=== PATIENT | male | born 1955 | race Caucasian/White ===

== ENCOUNTER 2020-02-18 10:55 | Outpatient (CLI) | payer BC, SELFPAY | END 2020-02-18 10:56 | disposition home or self-care (01) | PROVIDERS: PCP Internal Medicine; Visit Provider Urology | DX: R97.20 Elevated prostate specific antigen [PSA] (principal) | CPT/HCPCS: 36415; 84153 ==

== ENCOUNTER 2020-05-24 15:06 | Emergency (ER) | payer BC, SELFPAY ==
[2020-05-24] VITALS (10 sets, daily range): BP systolic 121–167; BP diastolic 63–97; PULSE 82–91; RESP 14–18; TEMP 37.1; O2SAT 93–98; BMI 46.7
--- NOTE | 2020-05-24 16:59 | XRR_ITS ---
PROCEDURE INFORMATION: Exam: XR Chest Exam date and time: 05/24/2020 5:02 PM Age: 64 years old Clinical indication: Shortness of breath; Prior surgery; Surgery type: Stents; Patient HX: SOB, chest discomfort; Additional info: New a fib TECHNIQUE: Imaging protocol: XR of the chest Views: 1 view. COMPARISON: No relevant prior studies available. FINDINGS: Lungs: Unremarkable. No consolidation. Surgical clips overlie the right hemithorax superiorly and medially. Pleural spaces: Unremarkable. No pleural effusion. No pneumothorax. Skin fold overlies the lower left chest. Heart/Mediastinum: Unremarkable. No cardiomegaly. Bones/joints: Unremarkable. XR/XR chest 1V portable [id number] IMPRESSION: No acute findings.
--- NOTE | 2020-05-24 17:01 | ECG_ITS ---
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 Measurements Intervals [place] Rate: 81 P: OR: QRS: -57 QRSD: 124 T: 31 QT: 377 QTc: 440 Interpretive Statements ATRIAL FIBRILLATION POSSIBLE RIGHT VENTRICULAR CONDUCTION DELAY [RSR (QR) IN V1/V2] LEFT ANTERIOR FASCICULAR BLOCK [QRS AXIS <= -45, QR IN I, RS IN II] POSSIBLE LEFT VENTRICULAR HYPERTROPHY [VOLTAGE CRITERIA PLUS LAE OR QRS WIDENING] No previous ECG available for comparison Electronically Signed On 05-24-2020 18:50:07 BAG SORTER by Lorenzo Ovalles M.D. [id number]
--- NOTE | 2020-05-24 18:47 | ED_ITS ---
HPI - SOB/Dyspnea General: Chief Complaint: Shortness of Breath/Dyspnea Stated Complaint: SOB Time Seen by Provider: 05/24/20 17:07 History of Present Illness: HPI Narrative: The patient is a 64-year-old male with past medical history hypertension who comes to the ER complaining of increasing shortness of breath with exertion for the past 2 weeks. It is intermittent and comes and goes and when he rests it goes away. Denies chest pain. EKG on arrival shows atrial fibrillation. On my exam he denies dyspnea and is in sinus rhythm. The EKG on arrival does show a. fib though. Repeat ekg shows NSR. MD elicited complaint: shortness of breath Onset (ago): week(s) (2) Timing: intermittent and now resolved Severity: mild Exacerbating factors: exertion Relieving factors: rest Associated symptoms: Reports no associated symptoms; Deny abdominal pain, chest pain, dizziness, extremity pain, orthopnea, palpitations or polyuria Treatment prior to arrival: none Review of Systems General: Reports: 10 or more systems reviewed and unremarkable except in HPI and below Const: Denies: fatigue Eyes: Denies: change in vision, blurry vision or eye redness ENMT: Denies: throat pain, swelling of lips/tongue, ear or mastoid pain or nasal congestion Card: Denies: chest pain, palpitations, irregular heart rhythm, edema, dyspnea on exertion or orthopnea Resp: Reports: dyspnea; Denies: productive cough or non-productive cough GI: Denies: abdominal pain, diarrhea or GI cramping : Denies: flank pain, urinary frequency or urinary urgency Musc: Denies: neck pain, back pain, extremity pain, joint pain, joint redness, limited range of motion or muscle weakness Skin/Breast: Denies: rash, pruritus, erythema, skin pain or skin tenderness Neuro: Denies: headache(s), numbness in extremities, weakness in extremities, sensory changes, difficulty walking, dizziness, confusion or Slurred speech present Psych: Denies: anxiety or depression Endo: Denies: polyuria All/Imm: Denies: urticaria, throat swelling or tongue swelling PFSH ED PFSH: Medical History BPH (benign prostatic hyperplasia) Gout H/O non-Hodgkin's lymphoma Hyperlipidemia Hypertension Surgical History H/O adenoidectomy H/O colonoscopy 2007 H/O detached retina repair H/O heart artery stent H/O lymph node biopsy History of appendectomy History of tonsillectomy Family History Father Cancer lung Mother Cancer skin cancer Other Stroke Denies family history of Diabetes CAD (coronary artery disease) Anesthesia complication Bleeding disorder Social History Smoking and tobacco status: never smoked Alcohol intake: never Household members: spouse Marital status: Current occupational status: employed History of recent travel: No Physical Exam Const: COMMON NORMALS: no acute distress, average body habitus, patient oriented x3, no limitations, healthy appearing, alert and well nourished GENERAL APPEARANCE: cooperative, comfortable, well kempt and well developed ORIENTATION/CONSCIOUSNESS: Yes awake, Yes oriented to person, Yes oriented to place and Yes oriented to time HENMT: COMMON NORMALS: normocephalic, external ears normal and Normal external nose present HEAD & SCALP: normal to inspection and normocephalic NOSE: Normal external nose present EXTERNAL EAR: Yes external ears normal MOUTH: Normal oral and palatal mucosa present THROAT: posterior oropharynx normal Eye: COMMON NORMALS: Equal, round and reactive pupils present and EOMs intact bilaterally GENERAL EYE: appearance normal, both eyes and all related structures PUPIL: Yes Equal, round and reactive pupils present Neck/C-Spine: COMMON NORMALS: full ROM, no lymphadenopathy, no meningeal signs and no JVD GENERAL: Yes normal visual inspection Lymph: LYMPHATIC: no lymphadenopathy noted Chest: COMMONS NORMALS: normal inspection of the chest and normal palpation of entire chest wall Resp: COMMON NORMALS: normal respiratory effort, No retractions, No use of accessory muscles, clear to auscultation bilaterally and percussion normal EFFORT & INSPECTION: Yes able to speak in complete sentences AUSCULTATION: clear to auscultation bilaterally PERCUSSION: percussion normal Cardio: COMMON NORMALS: no JVD, regular rate, regular rhythm, S1 normal heart sound present, S2 normal heart sound present and Peripheral pulses 2+ throughout RATE: regular rate RHYTHM: regular rhythm HEART SOUNDS: S1 normal heart sound present and S2 normal heart sound present PERIPHERAL PULSES: Peripheral pulses 2+ throughout GI: COMMON NORMALS: Normal to inspection, nondistended, normoactive bowel sounds present, Soft to palpation, non-tender and no masses INSPECTION: Yes normal to inspection PALPATION: Yes Soft to palpation : COMMON NORMALS: Yes no CVA tenderness BLADDER/KIDNEY EXAM: Yes no CVA tenderness Back/Pelvis: COMMON NORMALS: no CVA tenderness, thoracic and lumbar spine normal to inspection, no thoracic nor lumbar tenderness and thoraco-lumbar ROM normal Extremity: COMMON NORMALS: normal to inspection, full ROM, capillary refill normal, no joint enlargement and no pedal edema GENERAL: Yes normal exam except as noted Neuro: COMMON NORMALS: patient oriented x3, CN's II-XII intact bilaterally, moves all extremities, no focal motor deficits, no sensory deficits noted and gait normal SENSORIUM/ORIENTATION: Yes alert, Yes oriented to person, Yes oriented to place and Yes oriented to time MENINGEAL SIGNS: Yes no meningeal signs Psych: COMMON NORMALS: mental status grossly normal, Normal thought process present, cooperative, normal affect and speech normal APPEARANCE: Yes well kempt ATTITUDE: Yes calm SPEECH: Yes normal speech THOUGHT PROCESS: Normal thought process present Skin: COMMON NORMALS: no rashes or lesions noted GENERAL SKIN EXAM: no rashes or lesions noted Course Vital Signs: Vital signs: Vital Signs Temperature 98.8 F 05/24/20 15:17 Pulse Rate 82 05/24/20 22:00 Respiratory Rate 18 05/24/20 22:00 Blood Pressure 128/75 05/24/20 22:00 Pulse Oximetry 95 05/24/20 22:00 MDM - SOB/Dyspnea MDM Narrative: Medical decision making narrative: The patient likely has an episode of paroxysmal atrial fibrillation. A. júnior was seen on the EKG on arrival however in the exam room he is in normal sinus rhythm. Discussed the risks, benefits and alternatives of blood thinners and he chose to accept the risks and start Eliquis in the ER. Discussed with Dr. Jackson who will follow this patient in the clinic. I also refilled his metoprolol which she has been out of for a week. This is likely why he started popping into A. fib anyways. Return to the ER with worsening symptoms otherwise follow-up in the clinic. I placed a case management referral to help with the cardiology follow-up appointment. Lab Data: Labs: Lab Results 03/04/1505/24/20 05/24/20 Range/Units 18:15 18:37 18:37 WBC 8.5 (4.0-10.0) 10^3/ uL RBC 5.40 H (4.1-5.3) 10^6/u L Hgb 16.8 H (11.7-16.6) g/dL Hct 50.5 (42.0-52.0) % MCV 93.5 (80-94) fL MCH 31.1 (28.0-34.0) pg MCHC 33.3 (30.0-36.0) g/dL RDW 14.3 (12.1-15.1) % Plt Count 193 (130-400) 10^3/c mm MPV 11.0 H (7.4-10.4) fL Neut % (Auto) 62.9 % Lymph % (Auto) 22.9 % Richardson % (Auto) 8.0 % Eos % (Auto) 4.9 % Baso % (Auto) 0.7 % Neut # (Auto) 5.34 (1.8-7.7) 10^3/u L Lymph # (Auto) 1.9 (0.8-4.8) 10^3/u L Richardson # (Auto) 0.7 (0.2-0.9) 10^3/u L Eos # (Auto) 0.4 (0.0-0.8) 10^3/u L Baso # (Auto) 0.1 (0.0-0.1) 10^3/u L Nucleated RBC % (a uto) 0 % Nucleated RBCs # 0.0 /100WBC D-Dimer 0.39 (0-0.59) ug/mIFE U Sodium (136-145) mmol/L Potassium (3.5-5.1) mmol/L Chloride (98-107) mmol/L Carbon Dioxide (22-29) mmol/L Anion Gap (5-19) BUN (8-23) mg/dL Creatinine (0.7-1.2) mg/dL GFR Calculation (90-130) mL/min Glucose (65-115) mg/dL Calculated Osmolal ity (285-295) mOsm/k g Calcium (8.5-10.5) mg/dL Total Bilirubin (0.15-1.2) mg/dL AST (0-40) U/L ALT (0-41) U/L Alkaline Phosphata se (40-130) IU/L Troponin T Baselin e (0-15) ng/L Troponin T 120 Min maria e (0-15) ng/L Delta Troponin T (0-10) ABS# NT-Pro-B Natriuret Pep (0-125) pg/mL Total Protein (6.6-8.7) g/dL Albumin (3.5-5.2) g/dL Globulin (1.3-4.6) g/dL Urine Color Yellow (Yellow) Urine Appearance Clear (CLEAR) Urine pH 5 (5-7) Ur Specific Gravit y 1.015 (1.005-1.030) Urine Protein Neg (Negative) Urine Glucose (UA) Norm (Normal) Urine Ketones Negative (Negative) Urine Blood 2+ H (Negative) Urine Nitrate Negative (Negative) Urine Bilirubin Neg (Negative) Urine Urobilinogen 1 H (Negative) mg/dL Ur Leukocyte Silvia ase Negative (Negative) Urine RBC 5-10 H (0-2) /hpf Urine WBC None (0-5) /hpf Ur Squamous Epith Cells 5-10 H (0-5) /hpf Amorphous Sediment Not Reportable Urine Bacteria Trace (NONE) /hpf 05/24/20 05/24/20 05/24/20 Range/Units 18:37 18:37 20:51 WBC (4.0-10.0) 10^3/ uL RBC (4.1-5.3) 10^6/u L Hgb (11.7-16.6) g/dL Hct (42.0-52.0) % MCV (80-94) fL MCH (28.0-34.0) pg MCHC (30.0-36.0) g/dL RDW (12.1-15.1) % Plt Count (130-400) 10^3/c mm MPV (7.4-10.4) fL Neut % (Auto) % Lymph % (Auto) % Richardson % (Auto) % Eos % (Auto) % Baso % (Auto) % Neut # (Auto) (1.8-7.7) 10^3/u L Lymph # (Auto) (0.8-4.8) 10^3/u L Richardson # (Auto) (0.2-0.9) 10^3/u L Eos # (Auto) (0.0-0.8) 10^3/u L Baso # (Auto) (0.0-0.1) 10^3/u L Nucleated RBC % (a uto) % Nucleated RBCs # /100WBC D-Dimer (0-0.59) ug/mIFE U Sodium 140 (136-145) mmol/L Potassium 4.3 (3.5-5.1) mmol/L Chloride 102 (98-107) mmol/L Carbon Dioxide 24 (22-29) mmol/L Anion Gap 18.3 (5-19) BUN 22 (8-23) mg/dL Creatinine 1.3 H (0.7-1.2) mg/dL GFR Calculation 55.9 L (90-130) mL/min Glucose 110 (65-115) mg/dL Calculated Osmolal ity 294 (285-295) mOsm/k g Calcium 9.2 (8.5-10.5) mg/dL Total Bilirubin 0.5 (0.15-1.2) mg/dL AST 18 (0-40) U/L ALT 11 (0-41) U/L Alkaline Phosphata se 50 (40-130) IU/L Troponin T Baselin e 47 H (0-15) ng/L Troponin T 120 Min maria e 45.44 H (0-15) ng/L Delta Troponin T -1.56 L (0-10) ABS# NT-Pro-B Natriuret Pep 175 H (0-125) pg/mL Total Protein 6.4 L (6.6-8.7) g/dL Albumin 4.3 (3.5-5.2) g/dL Globulin 2.1 (1.3-4.6) g/dL Urine Color (Yellow) Urine Appearance (CLEAR) Urine pH (5-7) Ur Specific Gravit y (1.005-1.030) Urine Protein (Negative) Urine Glucose (UA) (Normal) Urine Ketones (Negative) Urine Blood (Negative) Urine Nitrate (Negative) Urine Bilirubin (Negative) Urine Urobilinogen (Negative) mg/dL Ur Leukocyte Silvia ase (Negative) Urine RBC (0-2) /hpf Urine WBC (0-5) /hpf Ur Squamous Epith Cells (0-5) /hpf Amorphous Sediment Urine Bacteria (NONE) /hpf Discharge Plan Discharge Patient Disposition: Home Clinical Impression: Atrial fibrillation Condition: Stable Prescriptions: New Eliquis 5 mg tablet 5 mg PO BID Qty: 20 RF: 0 metoprolol tartrate 50 mg tablet 50 mg PO Q12H Qty: 20 RF: 0 No Action allopurinol 100 mg tablet 100 mg PO DAILY RF: 0 diphenhydramine HCl [Benadryl] 25 mg capsule 25 mg PO QID PRNRF: 0 metoprolol tartrate 100 mg tablet 100 mg PO DAILY RF: 0 cilostazol 50 mg tablet 50 mg PO ONCE RF: 0 tamsulosin 0.4 mg capsule 0.4 mg PO DAILY RF: 0 fenofibrate nanocrystallized 145 mg tablet 145 mg PO DAILY RF: 0 atorvastatin 80 mg tablet 80 mg PO DAILY RF: 0 allopurinol 100 mg tablet 100 mg PO DAILY RF: 0 oxybutynin chloride 5 mg tablet extended release 24hr 5 mg PO DAILY RF: 0 levocetirizine [Xyzal] 5 mg tablet 5 mg PO DAILY RF: 0 multivitamin Tablet 1 tab PO DAILY RF: 0 Discharge Orders: Discharge ED (Routine); Ordered 05/24/20 Ordered By: Flo You Referrals: Lori Alonzo DO [Primary Care Provider] - Discharge Diet: Advance as tolerated Discharge Activity: Resume usual activity Patient Instructions: Atrial Fibrillation (ED), Opioid Safety Activity Restrictions/Additional Instructions: You have had an episode of paroxysmal atrial fibrillation. This is where your heart beats irregularly and it comes and goes. Please avoid activities likely to make you pop back into atrial fibrillation so it avoid excessive exertion. Please follow-up with Dr. Jackson in a few days. I have placed a case management referral to help you get a follow-up appointment with him. Return to the ER with worsening symptoms. Also please start taking your Eliquis and be careful not to injure yourself as it may cause excessive bleeding. I have also refilled your metoprolol. Coding Level of Care Code ED Valver for Deidra Fwd Exam Comprehensive
[2020-05-24 18:49] LABS: Basophils # 0.1 10^3/uL (0.0-0.1); Basophils % 0.7 %; Eosinophils # 0.4 10^3/uL (0.0-0.8); Eosinophils % 4.9 %; Hematocrit 50.5 % (42.0-52.0); Hemoglobin 16.8 g/dL (11.7-16.6); Lymphocytes # 1.9 10^3/uL (0.8-4.8); Lymphocytes % 22.9 %; Mean Corpuscular HGB Conc 33.3 g/dL (30.0-36.0); Mean Corpuscular Hemoglobin 31.1 pg (28.0-34.0); Mean Corpuscular Volume 93.5 fL (80-94); Monocytes # 0.7 10^3/uL (0.2-0.9); Neutrophils # 5.34 10^3/uL (1.8-7.7); Neutrophils % 62.9 %; Nucleated Red Blood Cells % 0 %; Platelet Count 193 10^3/cmm (130-400); Red Cell Distribution Width 14.3 % (12.1-15.1); White Blood Count 8.5 10^3/uL (4.0-10.0)
--- NOTE | 2020-05-24 19:01 | ECG_ITS ---
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 Measurements Intervals [place] Rate: 80 P: 57 [place]: 270 QRS: -53 QRSD: 124 T: 7 QT: 410 QTc: 473 Interpretive Statements SINUS RHYTHM WITH FIRST DEGREE AV BLOCK POSSIBLE RIGHT VENTRICULAR CONDUCTION DELAY [RSR (QR) IN V1/V2] MODERATE VOLTAGE CRITERIA FOR LVH, CONSIDER NORMAL VARIANT [MEETS CRITERIA IN ONE OF: R(aVL), S(V1), R(V5), R(V5/V6)+S(V1)] INFERIOR MYOCARDIAL INFARCTION , PROBABLY OLD [40+ ms Q WAVE AND/OR ST/T ABNORMALITY IN II/aVF] Compared to ECG 05/24/2020 15:24:36 First degree AV block now present Atrial fibrillation no longer present Left anterior fascicular block no longer present Myocardial infarct finding still present Electronically Signed On 05-24-2020 18:57:54 ADDICTION THERAPIST by Lorenzo Ovalles M.D. [email or web address] at [email or web address] Tech Youth [email or web address]/store/[id number]
[2020-05-24 19:03] LABS: D Dimer 0.39 ug/mIFEU (0-0.59)
[2020-05-24 19:17] LABS: Alanine Aminotransferase 11 U/L (0-41); Albumin Level 4.3 g/dL (3.5-5.2); Alkaline Phosphatase 50 IU/L (40-130); Aspartate Amino Transferase 18 U/L (0-40); Blood Urea Nitrogen 22 mg/dL (8-23); Calcium 9.2 mg/dL (8.5-10.5); Carbon Dioxide 24 mmol/L (22-29); Chloride 102 mmol/L (98-107); Globulin 2.1 g/dL (1.3-4.6); Glomerular Filtration Rate 55.9 mL/min (90-130); Glucose 110 mg/dL (65-115); NT Pro B Type Natriuretic Pept 175 pg/mL (0-125); Osmolality Calculated 294 mOsm/kg (285-295); Sodium 140 mmol/L (136-145); Total Bilirubin 0.5 mg/dL (0.15-1.2); Total Protein 6.4 g/dL (6.6-8.7)
[2020-05-24 19:18] LABS: Troponin(5th) Baseline 47 ng/L (0-15)
[2020-05-24 19:37] LABS: Anion Gap 18.3 (5-19); Potassium 4.3 mmol/L (3.5-5.1)
[2020-05-24 20:10] LABS: Add Urine Microscopic? YES; Bilirubin Urine Neg (Negative); Blood Urine 2+ (Negative); Glucose Urine UA Norm (Normal); Ketones Urine Negative (Negative); Leukocyte Esterase Urine Negative (Negative); Nitrate Urine Negative (Negative); Protein Urine Neg (Negative); Specific Gravity, Urine 1.015 (1.005-1.030); Urine Appearance Clear (CLEAR); Urine Color Yellow (Yellow); Urobilinogen Urine 1 mg/dL (Negative); pH Urine 5 (5-7)
[2020-05-24 20:15] LABS: Add Urine Culture? No; Bacteria Urine TRACE /hpf
[2020-05-24] MEDS: metoprolol tartrate 50 mg Tablet PO ×2 (21:42→22:29)
[2020-05-24] MEDS: apixaban 5 mg Tablet PO (21:42)
[2020-05-24 22:13] LABS: Troponin 5 2HR 45.44 ng/L (0-15); Troponin 5 2HR Delta -1.56 ABS# (0-10)
--- NOTE | 2020-05-24 23:01 | ECG_ITS ---
[facility] Test Date: 2020-05-24 Pat Name: Juan Antonio Mcpherson Department: Room: Gender: Male Kerrick Kleaner Operator: : 1955 Requested By: Flo You Order Number: [id number] Kaley MD: MOISE JASSO Measurements Intervals [place] Rate: 83 P: 42 [place]: 257 QRS: -54 QRSD: 129 T: 38 QT: 418 QTc: 491 Interpretive Statements SINUS RHYTHM WITH FIRST DEGREE AV BLOCK POSSIBLE LEFT ATRIAL ENLARGEMENT [-0.1mV P WAVE IN V1/V2] POSSIBLE RIGHT VENTRICULAR CONDUCTION DELAY [RSR (QR) IN V1/V2] LEFT ANTERIOR FASCICULAR BLOCK [QRS AXIS <= -45, QR IN I, RS IN II] POSSIBLE LEFT VENTRICULAR HYPERTROPHY [VOLTAGE CRITERIA PLUS LAE OR QRS WIDENING] POSSIBLE ANTERIOR MYOCARDIAL INFARCTION , OF INDETERMINATE AGE [30 ms Q WAVE IN V3/V4, OR R < 0.2 mV IN V4] Compared to ECG 05/24/2020 18:40:53 Left anterior fascicular block now present Myocardial infarct finding still present Electronically Signed On 05-25-2020 20:03:36 TREE CUTTER by MOISE JASSO [id number]
--- NOTE | 2020-05-25 10:10 | DCPLANNER ---
manager fitness had message to schedule a follow up appointment for patient with [facility]. manager fitness called [facility], spoke with Justyna, gave clinic patients information. A follow up appointment was scheduled for Tuesday, June 09, 2020 at 2:[address] Jackson. manager fitness called patient and gave patient the appointment information.
--- NOTE | 2020-06-16 08:12 | DCPLANNER ---
Patient had a follow up appointment scheduled for 06.09.[address] Jackson at [facility] - patient did attend appointment.
== END 2020-05-24 22:31 | disposition home or self-care (01) ==
PROVIDERS: Emergency Provider Family Medicine; PCP Internal Medicine
DX: I48.91 Unspecified atrial fibrillation (principal); E78.5 Hyperlipidemia, unspecified; I10 Essential (primary) hypertension; Z85.72 Personal history of non-Hodgkin lymphomas
CPT/HCPCS: 71045; 80053; 81001; 83880; 84484; 85025; 85378; 93005; 99284

== ENCOUNTER → 2020-07-02 11:55 | Outpatient (BNVA) | payer BC, SELFPAY | PROVIDERS: PCP Internal Medicine; Visit Provider Surgery | DX: Z20.822 Contact with and (suspected) exposure to COVID-19 (principal) | CPT/HCPCS: 87635 ==

== ENCOUNTER 2020-07-06 06:50 | Day surgery (SDC) | payer BC, SELFPAY ==
[2020-07-02 14:09] VITALS: BMI 46.2
[2020-07-06 07:04] VITALS: BP 142/69; PULSE 63; RESP 16; TEMP 36.3; O2SAT 99
--- NOTE | 2020-07-06 07:21 | ANES.PREANE2 ---
Pre-Anesthetic Assessment Pre-Anesthetic Assessment: Height/Weight: Height 1.88 m Weight 163.293 kg Temp Pulse Resp BP Pulse Ox 97.4 F L 63 16 142/69 99 07/06/20 07:04 07/06/20 07:04 07/06/20 07:04 07/06/20 07:04 07/06/20 07:04 Proposed Procedure: Operation Date: 07/06/20 08:00 Proposed Procedures p Colonoscopy 37140 Z12.11(Not Applicable) - Sina Borjas MD Was Beta Xenia taken within 24 hours: Yes Was Clonidine taken within 24 hours: N/A Last intake: Intake Last Liquid Date 07/05/20 Last Liquid Time 23:55 Last Solid Date 07/04/20 Social: Social History: No alcohol and No tobacco Exam: Pre-Anes Outpt Exam: alert and oriented x 3 Airway: Submandibular: WNL Cervical ROM: WNL MP: 2 Pulmonary: Pulmonary: Sleep apnea CV/HEM: CV/HEM: Afib and HTN : : None reported Hepatic: Hepatic: None reported GI: GI: None reported Metabolic: Metabolic: Hyperlipidemia and Morbid obesity Comments: Gout Musc/skel: Musc/skel: None reported Neuropsych: Neuropsych: None reported Anesthetic Plan: ASA status: 3 Anesthesia: MAC PFSH Anesthesia PFSH: Medical History (Updated 06/12/20 @ 19:50 by Sherice Jackson MD) Atrial fibrillation BPH (benign prostatic hyperplasia) Gout H/O non-Hodgkin's lymphoma Hyperlipemia Hyperlipidemia Hypertension Surgical History H/O adenoidectomy H/O colonoscopy 2007 H/O detached retina repair H/O heart artery stent H/O lymph node biopsy History of appendectomy History of tonsillectomy Family History Father Cancer lung Mother Cancer skin cancer Other Stroke Denies family history of Diabetes CAD (coronary artery disease) Anesthesia complication Bleeding disorder Social History Smoking and tobacco status: never smoked Alcohol intake: never Household members: spouse Marital status: Current occupational status: employed History of recent travel: No Data Anesthesia Cardiac Studies: No Data to Display
[2020-07-06] MEDS: sodium chloride 0.9% 1,000 ML 30 ML IV (07:22)
[2020-07-06 08:32] VITALS: BP 145/96; PULSE 63; RESP 18; TEMP 36.5; O2SAT 97
--- NOTE | 2020-07-06 08:34 | P.HP_ITS ---
Same Day Surgery H&P Indication for Procedure/HPI DATE OF PROCEDURE: July 06, 2020 CHIEF COMPLAINT/INDICATIONFOR SURGICAL PROCEDURE: screening PREOP DIAGNOSIS: screening colonoscopy PLANNED PROCEDRUE: Operation Date: 07/06/20 08:00 Proposed Procedures p Colonoscopy 40284 Z12.11(Not Applicable) - Sina Borjas MD Medications/Allergies* Home Medications Medication Instructions Recorded Confirmed Type allopurinol 100 mg tablet 100 mg PO DAILY 02/27/20 07/06/20 History diphenhydramine HCl 25 mg capsule 25 mg PO QID PRN 02/27/20 07/06/20 History levocetirizine 5 mg tablet 5 mg PO DAILY 02/27/20 07/06/20 History multivitamin 1 tab PO DAILY 02/27/20 07/06/20 History oxybutynin chloride 5 mg 5 mg PO DAILY 02/27/20 07/06/20 History tablet,extended release 24 hr tamsulosin 0.4 mg capsule 0.4 mg PO DAILY 02/27/20 07/06/20 History metoprolol tartrate 50 mg tablet 100 mg PO .QPM tab 06/09/20 07/06/20 History Allergies/Adverse Reactions Allergy/AdvReac Type Severity Reaction Status Date / Time No Known Allergies Allergy Verified 02/27/20 10:41 Current Medications: Generic Name Dose Route Start Last Admin Trade Name Freq PRN Reason Stop Dose Admin Sodium Chloride 1,000 mls @ 30 mls/hr 07/06/20 07:00 07/06/20 07:22 Sodium Chloride 0.9% IV 07/07/20 06:59 30 mls/hr .Q24H KWESI Administration Pertinent History/Comorbid Conditions* Medical History (Updated 07/06/20 @ 08:33 by Sina Borjas MD) Atrial fibrillation BPH (benign prostatic hyperplasia) Gout H/O non-Hodgkin's lymphoma Hyperlipemia Hyperlipidemia Hypertension Surgical History (Updated 07/06/20 @ 08:33 by Sina Borjas MD) H/O adenoidectomy H/O colonoscopy (07/06/20) poor prep, cecal polyp , repeat in 5 years H/O detached retina repair H/O heart artery stent H/O lymph node biopsy History of appendectomy History of tonsillectomy Family History (Updated 02/27/20 @ 10:51 by Lori Bergman LPN) Cancer Father lung Mother skin cancer Stroke Denies family history of Diabetes CAD (coronary artery disease) Anesthesia complication Bleeding disorder Social History Smoking and tobacco status: never smoked Alcohol intake: never Household members: spouse Marital status: Current occupational status: employed History of recent travel: No Pertinent Exam Findings alert, oriented x 3, regular rate & rhythm and operative site marked Recommendations Surgery/Procedure today Coding Level of Care Code Acute Administrative Assistant Coordinator for Deidra Hernandez
[2020-07-06 08:47] VITALS: BP 122/81; PULSE 62; RESP 16; TEMP 36.7; O2SAT 100
--- NOTE | 2020-07-06 09:04 | ANE.PACU2 ---
Inpatient post-anesthesia follow up: Airway intact: Yes Vital signs: Temperature 98.0 F Pulse Rate 62 Respiratory Rate 16 Blood Pressure 122/81 Pulse Oximetry 100 Oxygen Delivery Me thod Room Air Oxygen Flow Rate Fraction of Inspir ed Oxygen Hydration adequate: Yes Nausea and vomiting: No Mental status: Baseline
--- NOTE | 2020-07-06 13:44 | ANE.PACU2 ---
Inpatient post-anesthesia follow up: Airway intact: Yes Vital signs: Temperature 98.0 F Pulse Rate 62 Respiratory Rate 16 Blood Pressure 122/81 Pulse Oximetry 100 Oxygen Delivery Me thod Room Air Oxygen Flow Rate Fraction of Inspir ed Oxygen Hydration adequate: Yes Nausea and vomiting: No Pain level: 1 Mental status: Baseline
--- NOTE | 2020-07-07 11:47 | ANES.PREANE2 ---
Pre-Anesthetic Assessment Pre-Anesthetic Assessment: Height/Weight: Height 1.88 m Weight 163.293 kg Temp Pulse Resp BP Pulse Ox 98.0 F 62 16 122/81 100 07/06/20 08:47 07/06/20 08:47 07/06/20 08:47 07/06/20 08:47 07/06/20 08:47 Preop Diagnosis: screening colonoscopy Proposed Procedure: Operation Date: 07/06/20 08:00 Proposed Procedures p Colonoscopy 20448 Z12.11(Not Applicable) - Sina Borjas MD Was Beta Xenia taken within 24 hours: Yes Was Clonidine taken within 24 hours: N/A Last intake: Intake Last Liquid Date 07/05/20 Last Liquid Time 23:55 Last Solid Date 07/04/20 Social: Social History: No alcohol and No tobacco Exam: Pre-Anes Outpt Exam: alert, oriented x 3, clear to auscultation bilaterally and regular rate & rhythm Airway: Submandibular: Other (limited) Cervical ROM: Other (limited) MP: 3 Pulmonary: Pulmonary: Sleep apnea CV/HEM: CV/HEM: HTN : : None reported Hepatic: Hepatic: None reported GI: GI: None reported Metabolic: Metabolic: Hyperlipidemia Comments: Gout Musc/skel: Musc/skel: None reported Neuropsych: Neuropsych: None reported Anesthetic Plan: ASA status: 3 Anesthesia: MAC PFSH Anesthesia PFSH: Medical History (Updated 07/06/20 @ 08:33 by Sina Borjas MD) Atrial fibrillation BPH (benign prostatic hyperplasia) Gout H/O non-Hodgkin's lymphoma Hyperlipemia Hyperlipidemia Hypertension Surgical History (Updated 07/06/20 @ 08:33 by Sina Borjas MD) H/O adenoidectomy H/O colonoscopy (07/06/20) poor prep, cecal polyp , repeat in 5 years H/O detached retina repair H/O heart artery stent H/O lymph node biopsy History of appendectomy History of tonsillectomy Family History Father Cancer lung Mother Cancer skin cancer Other Stroke Denies family history of Diabetes CAD (coronary artery disease) Anesthesia complication Bleeding disorder Social History Smoking and tobacco status: never smoked Alcohol intake: never Household members: spouse Marital status: Current occupational status: employed History of recent travel: No Data Anesthesia Cardiac Studies: No Data to Display
== END 2020-07-06 09:20 | disposition home or self-care (01) ==
PROVIDERS: PCP Internal Medicine; Visit Provider Surgery
PROC: 0DJD8ZZ Inspection of Lower Intestinal Tract, Via Natural or Artificial Opening Endoscopic (ICD-10-PCS; CPT 45378; principal; 2020-07-06 08:00)
DX: Z12.11 Encounter for screening for malignant neoplasm of colon (principal); K57.30 Diverticulosis of large intestine without perforation or abscess without bleeding; K64.8 Other hemorrhoids; D12.0 Benign neoplasm of cecum; I48.91 Unspecified atrial fibrillation; N40.0 Benign prostatic hyperplasia without lower urinary tract symptoms; E78.5 Hyperlipidemia, unspecified; I10 Essential (primary) hypertension; Q27.30 Arteriovenous malformation, site unspecified; G47.30 Sleep apnea, unspecified
CPT/HCPCS: 45380; 88305; 96360; 96361; J2704; J7030

== ENCOUNTER 2020-08-10 10:36 | Outpatient (CLI) | payer BC, SELFPAY ==
--- NOTE | 2020-08-10 11:00 | USCV_ITS ---
Juan Antonio Mcpherson Age: 65 Gender: M : 1955 Exam Date: 08/10/2020 11:01 Ordering Phys: Baylee Wolf MD ([email or web address]) Technologist: Lesa José Exam Location: [facility] [place] Indication: CHEST PAIN BP: 120 / 80 HR: 60 Rhythm: Sinus Technical Quality: Very technically difficult study MEASUREMENTS (Male / Female) Normal Values 2D ECHO LV Diastolic Diameter PLAX 4.8 cm 4.2 - 5.9 / 3.9 - 5.3 cm LV Systolic Diameter PLAX 2.9 cm LV Chamber Size 3.8 cm IVS Diastolic Thickness 1.1 cm 0.6 - 1.0 / 0.6 - 0.9 cm IVS Systolic Thickness 1.7 cm LVPW Diastolic Thickness 1.3 cm 0.6 - 1.0 / 0.6 - 0.9 cm LVPW Systolic Thickness 1.5 cm RV Chamber Size 2.8 cm LVOT Diameter 2.0 cm LV Ejection Fraction 2D Teich 69.8 % LA Diameter 4.8 cm LA Width 4.8 cm LA Height 4.7 cm RA Width 2.9 cm RA Height 4.7 cm Aorta at Sinotubular Diameter 3.5 cm M-MODE LV Diastolic Diameter MM 5.3 cm 4.2 - 5.9 / 3.9 - 5.3 cm LV Systolic Diameter MM 3.5 cm LV Ejection Fraction MM Teich 62.7 % IVS Diastolic Thickness MM 1.0 cm 0.6 - 1.0 / 0.6 - 0.9 cm IVS Systolic Thickness MM 1.4 cm LVPW Diastolic Thickness MM 0.9 cm 0.6 - 1.0 / 0.6 - 0.9 cm LVPW Systolic Thickness MM 1.6 cm RV Diastolic Diameter MM 1.5 cm Aortic Annulus Diameter 4.0 cm LA Ao Ratio MM 1.4 MV E Point Septal Separation 0.3 cm DOPPLER AV Peak Velocity 108.0 cm/s LVOT Peak Velocity 61.0 cm/s AV Area Cont Eq vti 2.0 cm squared AV Area Cont Eq pk 1.8 cm squared MV Area PHT 4.0 cm squared Mitral E to A Ratio 1.7 MV E' Velocity 50.0 cm/s Mitral E to MV E' Ratio 7.6 Mitral E to LV E' Lateral Ratio 7.1 Mitral E to LV E' Septal Ratio 8.2 TR Peak Velocity 240.9 cm/s TR Peak Gradient 23.2 mmHg TR Mean Velocity 224.7 cm/s TR Mean Gradient 20.7 mmHg TR Velocity Time Integral 37.6 cm TV Peak E Velocity 84.0 cm/s Right Atrial Pressure 3.0 mmHg Pulmonary Artery Systolic Pressu 26.2 mmHg PV Peak Velocity 69.3 cm/s RV Acceleration Time 0.2 s RV Ejection Time 0.4 s RV AcT/ET 0.5 FINDINGS Left Ventricle Normal LV size ejection fraction. No gross wall motion normalities. Right Ventricle Possibly normal size and ejection fraction Right Atrium Mildly increased right atrial size. Left Atrium Mildly increased left atrial size. Mitral Valve Thickened mitral valve. Mild mitral valve regurgitation. Mild mitral annular calcification. Aortic Valve Thickened aortic valve. [id number] aortic valve regurgitation. Tricuspid Valve Could not be visualized well Pulmonic Valve Pulmonic valve not well visualized. Pericardium Normal pericardium without effusion. Aorta Normal ascending aorta dimension. CONCLUSIONS Normal LV size ejection fraction of 62% No gross wall motion normalities. Segmental wall motion analysis is difficult because of the poor ultrasonic window Mild biatrial enlargement. Thickened aortic valve. [id number] aortic valve regurgitation. Thickened mitral valve. Mild mitral valve regurgitation. Mild mitral annular calcification. There is no pericardial effusion. There are no intracardiac masses. Technically difficult study because of the poor ultrasonic window. No previous study is available for comparison. Dr Baylee Wolf MD [facility] (Electronically Signed) Final Date: 10 Aug 2020 16:29 S
[2020-08-10 11:51] LABS: Basophils # 0.1 10^3/uL (0.0-0.1); Basophils % 0.6 %; Eosinophils # 0.4 10^3/uL (0.0-0.8); Eosinophils % 4.8 %; Hematocrit 45.5 % (42.0-52.0); Hemoglobin 15.1 g/dL (11.7-16.6); Lymphocytes # 1.9 10^3/uL (0.8-4.8); Lymphocytes % 24.6 %; Mean Corpuscular HGB Conc 33.2 g/dL (30.0-36.0); Mean Corpuscular Hemoglobin 30.8 pg (28.0-34.0); Mean Corpuscular Volume 92.7 fL (80-94); Mean Platelet Volume 11.2 fL (7.4-10.4); Monocytes # 0.5 10^3/uL (0.2-0.9); Monocytes % 6.8 %; Neutrophils # 4.88 10^3/uL (1.8-7.7); Neutrophils % 62.9 %; Nucleated Red Blood Cells % 0 %; Platelet Count 155 10^3/cmm (130-400); Red Blood Count 4.91 10^6/uL (4.1-5.3); Red Cell Distribution Width 13.5 % (12.1-15.1); White Blood Count 7.8 10^3/uL (4.0-10.0)
[2020-08-10 12:10] LABS: Anion Gap 14.3 (5-19); Blood Urea Nitrogen 18 mg/dL (8-23); Calcium 8.4 mg/dL (8.5-10.5); Carbon Dioxide 25 mmol/L (22-29); Chloride 108 mmol/L (98-107); Glomerular Filtration Rate 67.6 mL/min (90-130); Glucose 105 mg/dL (65-115); Osmolality Calculated 298 mOsm/kg (285-295); Potassium 4.3 mmol/L (3.5-5.1); Sodium 143 mmol/L (136-145)
== END 2020-08-10 10:37 | disposition home or self-care (01) ==
PROVIDERS: PCP Internal Medicine; Visit Provider Internal Medicine Cardiovascular Disease
DX: I48.0 Paroxysmal atrial fibrillation (principal); Z01.812 Encounter for preprocedural laboratory examination; R55 Syncope and collapse; E78.49 Other hyperlipidemia; I10 Essential (primary) hypertension; Z20.822 Contact with and (suspected) exposure to COVID-19; I08.0 Rheumatic disorders of both mitral and aortic valves
CPT/HCPCS: 36415; 80048; 85025; 85610; 86850; 86900; 87635; 93306

== ENCOUNTER 2020-08-16 09:37 | Day surgery (SDC) | payer BC, SELFPAY ==
[2020-08-13 12:26] VITALS: BMI 46.2
[2020-08-16] VITALS (18 sets, daily range): BP systolic 119–164; BP diastolic 71–98; PULSE 56–96; RESP 16–18; TEMP 36.1–37.3; O2SAT 60–100
--- NOTE | 2020-08-16 | SC_ITS ---
WS: [id number] C-ARM RADIOGRAPHS CHEST; 2 IMAGES HISTORY: Defibrillator insertion. COMPARISON: None available. Intraoperative imaging during defibrillator insertion to the LEFT subclavian. SC/C-arm FL for Pacemaker IMPRESSION: Intraoperative imaging during defibrillator insertion.
--- NOTE | 2020-08-16 | SCC_ITS ---
Procedure Done: Dual-chamber pacemaker implantation 122.9 seconds of fluoroscopic guidance, for a cumulative dose of 42.19 mGy, was provided to Dr. Thurman by the radiology department. C-arm images of the chest were saved for the patient's permanent record. [facility]
--- NOTE | 2020-08-16 07:45 | SC_ITS ---
WS: [id number] C-ARM RADIOGRAPHS CHEST; 2 IMAGES HISTORY: Defibrillator insertion. COMPARISON: None available. Intraoperative imaging during defibrillator insertion to the LEFT subclavian.
--- NOTE | 2020-08-16 10:03 | P.HPUD_ITS ---
Surgery/Procedure H&P Update DATE OF PROCEDURE: August 16, 2020 DATE H&P PERFORMED: 08/04/20 H&P UPDATE INFORMATION: I have reviewed H&P completed within last 30 days, I have examined patient prior to procedure and No changes to prior documentation PREOP DIAGNOSIS: Third-degree heart block PRIMARY INDICATION FOR PROCEDURE: Paroxysmal atrial fibrillation with third- degree heart block and prolonged sinus pauses PLANNED PROCEDURE: Operation Date: 08/16/20 11:00 Proposed Procedures p Pacemaker Insertion(Not Applicable) - Kashmir Thurman MD
[2020-08-16] MEDS: sodium chloride 0.9% 1,000 ML 30 ML IV (10:25)
--- NOTE | 2020-08-16 10:29 | ANES.PREANE2 ---
Pre-Anesthetic Assessment Pre-Anesthetic Assessment: Height/Weight: Height 1.88 m Weight 163.293 kg Temp Pulse Resp BP Pulse Ox 97.4 F L 56 L 18 142/83 99 08/16/20 09:53 08/16/20 09:53 08/16/20 09:53 08/16/20 09:53 08/16/20 09:53 Preop Diagnosis: Third-degree heart block Proposed Procedure: Operation Date: 08/16/20 11:00 Proposed Procedures p Pacemaker Insertion(Not Applicable) - Kashmir Thurman MD Familial anesthetic complications: None Was Beta Xenia taken within 24 hours: N/A Was Clonidine taken within 24 hours: N/A Last intake: Intake Last Liquid Date 08/15/20 Last Liquid Time 23:00 Last Solid Date 08/15/20 Last Solid Time 23:00 Social: Social History: Alcohol (moderate use) and No tobacco Exam: Pre-Anes Outpt Exam: alert, oriented x 3, clear to auscultation bilaterally and regular rate & rhythm Airway: Cervical ROM: WNL MP: 4 Dentition: Other (missing tooth with post at bottom L) Pulmonary: Pulmonary: Sleep apnea CV/HEM: CV/HEM: Afib, CAD (stent X2 , greater than 1 year ago, no plavix), HTN and Palp Comments: having pauses in heart beat Metabolic: Metabolic: Hyperlipidemia and Morbid obesity Anesthetic Plan: ASA status: 4 Anesthesia: MAC Risk of > 500 ml blood loss (7ml/kg in children): No PFSH Anesthesia PFSH: Medical History Atrial fibrillation BPH (benign prostatic hyperplasia) Gout H/O non-Hodgkin's lymphoma Hyperlipemia Hyperlipidemia Hypertension Surgical History H/O adenoidectomy H/O colonoscopy (07/06/20) poor prep, cecal polyp , repeat in 5 years H/O detached retina repair H/O heart artery stent H/O lymph node biopsy History of appendectomy History of tonsillectomy Family History Father Cancer lung Lung disease Mother Cancer skin cancer Dementia Grandfather Stroke Denies family history of Diabetes CAD (coronary artery disease) Clotting disorder Chronic kidney disease (CKD) Suicide Anesthesia complication Bleeding disorder Social History Smoking and tobacco status: never smoked Alcohol intake: never Household members: spouse Marital status: Current occupational status: employed History of recent travel: No Data Anesthesia Cardiac Studies: No Data to Display
[2020-08-16 10:50] LABS: Add Urine Microscopic? NO; Charge for UA Resulting for Rev
[2020-08-16] MEDS: lidocaine 1% INJ 20 mL INJECTION (10:56)
[2020-08-16 11:00] LABS: Bilirubin Urine Neg (Negative); Blood Urine Neg (Negative); Glucose Urine UA Norm (Normal); Ketones Urine Negative (Negative); Leukocyte Esterase Urine Negative (Negative); Nitrate Urine Negative (Negative); Protein Urine Neg (Negative); Urine Appearance Clear (CLEAR); Urine Color Yellow (Yellow); Urobilinogen Urine 4 mg/dL (Negative); pH Urine 5 (5-7)
[2020-08-16] MEDS: ceFAZolin 1,000 mg SDV 1000 MG IRRIGATION (11:35)
--- NOTE | 2020-08-16 12:39 | PM.OP ---
Operative Report Date of procedure: August 16, 2020 Pre-op Diagnosis: Third-degree heart block Post-op diagnosis: same Procedure Done: Dual-chamber pacemaker implantation Implants: Pacing generator, atrial and ventricular leads Pathology: none sent Surgeon: Kashmir Thurman Anesthesia: MAC and Local Complications: None: Chest x-ray pending. Disposition: floor Brief History: Mr. Mcpherson is a 65-year-old to consider dual-chamber pacemaker implantation due to history of paroxysmal atrial fibrillation and sinus pauses documented up to 6 seconds. He has had several episodes of near syncope. Details and risk of the procedure were carefully and frankly discussed. Proper consents were reviewed and signed. Procedure: Procedure: Mr. Mcpherson was taken to the OR suite and placed in the supine position over a shoulder roll. He received conscious sedation with continuous anesthesia monitoring by. His entire chest was sterilely prepped and draped. 1% lidocaine was infiltrated in the left subclavicular region. While in Trendelenburg position, utilizing modified seldinger technique, 2 guidewires were placed in the left subclavian vein. This was confirmed in position by fluoroscopy. Next, after infiltration with lidocaine, a subcutaneous pocket was created beginning from the exit point of the guidewire and extending laterally and inferiorly. Cautery was utilized to create the pocket just above the pectoralis musculature. Hemostasis was confirmed. An antibiotic-soaked sponge was placed in the wound. A dilator and tear-away sheath was placed over the first guidewire and advanced under fluoroscopy. Guidewire and dilator were removed. Next using a combination of curved and straight stylettes, the right ventricular lead was placed in position by fluoroscopy. The distal screw was extended. Interrogation was then performed confirming appropriate parameters. The tear-away sheath was then removed and the ventricular lead was sewn to the floor of the subcutaneous pocket. In a similar fashion dilator and tear-away sheath was placed over the 2nd guide wire and advanced under fluoroscopy. Guidewire and dilator were removed. Straight and curved stylettes were used to position the right atrial lead with fluoroscopy. Distal screw was extended. Interrogation was then performed. Tear-away sheath was then removed. Atrial lead was secured to the floor of the subcutaneous pocket. Pocket was irrigated with antibiotic solution and hemostasis again confirmed. Pacing generator was brought into the field, and after confirmation of hemostasis in the subcutaneous pocket, the leads were connected to the generator with appropriate capture. The entire system was interrogated by fluoroscopy. Leads and generator were secured in the pocket. Sponge and needle count was correct. The wound was then closed in 2 layers of 3-0 Vicryl suture. Skin was reapproximated in a subcuticular manner with 4-0 Monocryl suture. A pressure dressing was applied. The left arm was placed in a sling. The patient had equal breath sounds bilaterally. He was then transferred to the PACU, where chest x-ray is currently pending. I did certified genetic counselor with the family at the completion of the procedure. Following are the specifics of this system: Right ventricular lead is 58 cm and model 5076. Serial number [id number] Right atrial lead is 52 cm and is model 5076. Serial number [id number]. Ventricular lead had sensing of 15.6 mV with an impedance of 646 ohms. Threshold was 1.1 V Atrial lead had sensing of 3.0 mV with an impedance of 418 ohms. Threshold was 1.6 V. [employer] generator: Model # [id number] Serial #[id number]
--- NOTE | 2020-08-16 12:47 | XR_ITS ---
WS: [id number] Exam: XR chest 1V portable [id number] Date/Time of Exam: 08/16/2020 12:47 PM Reason For Exam: Status post pacemaker Comparison 05/24/2020. The lungs are clear and fully inflated. A cardiac pacer has been placed over the left chest. The lead s appear to be in appropriate location from this projection. No pneumothorax noted. Cardiomediastinal structures are otherwise unremarkable. Regional bony elements appear normal. XR/XR chest 1V portable [id number] IMPRESSION: 1. No acute cardiopulmonary finding. 2. Cardiac pacer placement as noted above.
[2020-08-16] MEDS: lactated ringers 1,000 ML 75 ML IV (13:52)
--- NOTE | 2020-08-16 17:47 | ANE.PACU2 ---
Inpatient post-anesthesia follow up: Airway intact: Yes Vital signs: Temperature 98.3 F Pulse Rate 61 Respiratory Rate 18 Blood Pressure 125/78 Pulse Oximetry 99 Oxygen Delivery Me thod [ Room Air Current Rate & Del nela] Oxygen Delivery Me thod Room Air Oxygen Flow Rate Fraction of Inspir ed Oxygen Hydration adequate: Yes Nausea and vomiting: No Pain level: 2 Mental status: Baseline
[2020-08-16] MEDS: metoprolol succinate ER (24 HR) 25 mg Tablet PO (17:57)
[2020-08-16] MEDS: ceFAZolin 1,000 MG in sodium chloride 0.9% (plus) 50 ML 100 MG IV (17:58)
[2020-08-16 20:24] LABS: Glucose Point of Care 132 mg/dL (70-110)
[2020-08-16] MEDS: HYDROcodone-acetaminophen 5-325 mg Tablet 1 TAB PO (23:54)
[2020-08-17] MEDS: ceFAZolin 1,000 MG in sodium chloride 0.9% (plus) 50 ML 100 MG IV (02:43)
[2020-08-17] MEDS: lactated ringers 1,000 ML 75 ML IV (04:02)
[2020-08-17 04:04] VITALS: BP 121/77; PULSE 63; RESP 18; TEMP 36.7; O2SAT 97
[2020-08-17 05:53] VITALS: PULSE 61
--- NOTE | 2020-08-17 07:13 | P.PN_ITS ---
Subjective Subjective: Interval history: Postop day #1 status post dual-chamber pacemaker implantation. No concerns reported by nursing service overnight. Mr. Mcpherson is up in chair this morning. Postoperative discomfort is under good control. Vitals/I&O/Wt Last Vital Signs Temp 98.0 F 08/17/20 04:04 Pulse 61 08/17/20 05:53 Resp 18 08/17/20 04:04 BP 121/77 08/17/20 04:04 Pulse Ox 97 08/17/20 04:04 08/16/20 08/17/20 08/17/20 22:59 06:59 14:59 Intake Total 2550 / 2600 50 / 2650 Output Total 575 / 584 300 / 884 Balance 1974 / 2015 -250 / 1766 Physical Exam Chest: OTHER: Outer compressive dressing removed. Inner dressing remains in place and is dry. No postoperative swelling noted. No ecchymosis. Resp: COMMON NORMALS: normal respiratory effort, No use of accessory muscles and clear to auscultation bilaterally AUSCULTATION: clear to auscultation bilaterally Cardio: COMMON NORMALS: regular rate, S1 normal heart sound present and No murmurs present (Cardio) RATE: regular rate HEART SOUNDS: S1 normal heart sound present Extremity: COMMON NORMALS: no clubbing, cyanosis or edema A&P Assessment and plan (1) Status post cardiac pacemaker procedure: POD #1 status post dual-chamber pacemaker implantation. We will perform interrogation this morning. If appropriate, will plan for discharge to home. Follow-up in heart care services in 1 week. Status: Acute Attestations Medical Necessity Statement*: POD #1 status post dual-chamber pacemaker implantation secondary to intermittent third-degree heart block Time Spent in Patient Care: 16 - 35 minutes Coding Level of Care Code Acute Air Bag Builder for Chg Fwd Diagnoses Status post cardiac pacemaker procedure Z95.0
--- NOTE | 2020-08-17 07:22 | P.DS_ITS ---
Discharge Providers Date of Admission: 08/16/20 Date of Discharge: August 17, 2020 Attending Provider at Discharge: Kashmir Thurman MD Primary Care Provider: Lori Alonzo DO Diagnoses at Discharge Discharge Diagnosis (1) Status post cardiac pacemaker procedure: Status: Acute Reason for Visit Reason for Visit: pacemaker insertion Hospital Course Hospital Course Mr. Mcpherson is a 65-year-old gentleman referred for dual-chamber pacemaker implantation after documented substantial sinus pauses up to 6 seconds. He has chronic atrial fibrillation and is on anticoagulation. He was originally referred by Dr. Jackson to Dr. Wolf for pacemaker implantation, though Dr. Wolf is currently not available and I was requested to proceed with this procedure. Rationale was carefully discussed with Mr. Mcpherson and the family and they were in agreement. Yesterday, August 16, 2020, he underwent dual-chamber pacemaker implantation. Postoperatively he has convalesced on the rachel where he is continue to receive postop antibiotics and close monitoring. Pacemaker function appears to be adequate. Chest x-ray post procedure is clear. Postoperative discomfort is under good control. He will be planned for discharge to home today in stable condition. Follow-up will be in [facility] in 1 week. Postoperative instructions have been carefully reviewed with him. He may resume his Eliquis tomorrow. Physical Exam Chest: OTHER: No ecchymosis or substantial swelling. Minimal tenderness at the incision site. Resp: COMMON NORMALS: normal respiratory effort, No use of accessory muscles and clear to auscultation bilaterally EFFORT & INSPECTION: Yes symmetric chest movement AUSCULTATION: clear to auscultation bilaterally Cardio: COMMON NORMALS: regular rate and No murmurs present (Cardio) RATE: regular rate Extremity: COMMON NORMALS: no clubbing, cyanosis or edema Discharge Data 2 Data Completed and Pending: Completed Studies During Hospitalization Category Date Time Status XR chest 1V kevin ble [id number] Routine Exams 08/16/20 12:47 Completed Pending at discharge Category Date Time Status Basic Metabolic P archie Routine Lab 08/16/20 09:45 Uncollected Complete Blood Co unt w/Auto Routine Lab 08/16/20 09:45 Uncollected Labs from last 24 hours 08/16/20 08/16/20 20:03 10:24 POC Glucose 132 H Urine Color Yellow Urine Appearance Clear Urine pH 5 Ur Specific Gravit y 1.010 Urine Protein Neg Urine Glucose (UA) Norm Urine Ketones Negative Urine Blood Neg Urine Nitrate Negative Urine Bilirubin Neg Urine Urobilinogen 4 H Ur Leukocyte Silvia ase Negative Vitals: Last Vital Signs Temp 98.0 F 08/17/20 04:04 Pulse 61 08/17/20 05:53 Resp 18 08/17/20 04:04 BP 121/77 08/17/20 04:04 Pulse Ox 97 08/17/20 04:04 Discharge Plan Discharge Condition: Stable Prescriptions: New hydrocodone-acetaminophen 5-325 mg Tablet 1 tab PO Q6H PRN (Reason: Moderate Pain) Qty: 20 RF: 0 Continued diphenhydramine HCl [Benadryl] 25 mg capsule 25 mg PO QID PRN (Reason: Allergy Symptoms) RF: 0 tamsulosin 0.4 mg capsule 0.4 mg PO DAILY RF: 0 allopurinol 100 mg tablet 100 mg PO DAILY RF: 0 oxybutynin chloride 5 mg tablet extended release 24hr 5 mg PO DAILY RF: 0 levocetirizine [Xyzal] 5 mg tablet 5 mg PO DAILY RF: 0 multivitamin Tablet 1 tab PO DAILY RF: 0 metoprolol succinate 25 mg tablet extended release 24 hr 25 mg PO BID RF: 0 cholecalciferol (vitamin D3) 1,250 mcg (50,000 unit) capsule 50,000 unit PO Q7D RF: 0 fenofibrate nanocrystallized 145 mg tablet 145 mg PO DAILY RF: 0 Eliquis 5 mg tablet 5 mg PO BID Qty: 180 RF: 4 rosuvastatin 40 mg tablet 40 mg PO DAILY Qty: 30 RF: 3 Discharge Orders: Discharge Order (Routine); Ordered 08/17/20 Ordered By: Kashmir Thurman Referrals: [facility] [Provider Group] - 1 week (Pacemaker clinic) Discharge Diet: Usual diet Discharge Activity: Limit activity as instructed Activity Restrictions/Additional Instructions: May remove bandage in 2 days May begin daily showers in 2 days No swimming or tub baths x 2 weeks No ointments on incision Report drainage, redness, heat, increased pain, or swelling to clinic No heavy lifting x2 weeks Do not raise left arm above eye level for 1 week Discharge Attestations Time Spent in Discharge Care*: less than 30 min Specific Discharge Activities: educating patient, discussing with case planner/social workers/dc planners, documenting/other paperwork and evaluating patient/reviewing data Status at Discharge: Cognitive status at discharge: cognitively intact , Behavioral status at discharge: cooperative , Functional status at discharge: independent ambulation Overall status at discharge: patient is back to baseline Quality Metrics Clinical Quality Measures During this hospital stay, did patient experience: None Coding Level of Care Code Acute Chg FW DC note Diagnoses Status post cardiac pacemaker procedure Z95.0
[2020-08-17 07:55] VITALS: BP 146/87; PULSE 59; PULSE 60; RESP 18; TEMP 37.7; O2SAT 97; O2SAT 98
[2020-08-17] MEDS: atorvastatin 40 mg Tablet 80 MG PO (09:26)
[2020-08-17] MEDS: pantoprazole DR 40 mg Tablet PO (09:27)
[2020-08-17] MEDS: multivitamin therapeutic Tablet 1 TAB PO (09:27)
[2020-08-17] MEDS: metoprolol succinate ER (24 HR) 25 mg Tablet PO (09:27)
[2020-08-17] MEDS: tamsulosin 0.4 mg Capsule PO (09:27)
--- NOTE | 2020-08-17 09:39 | PC.NURSE ---
pt verbalizes understanding of discharge instructions, home medications, and follow up appointment. pacemaker has been interrogated and results called: Nereyda states that pacer is functioning properly, and report was faxed and placed in paper chart. card and booklet for patients pacer was placed in discharge folder.
[2020-08-17 10:19] VITALS: BP 146/87; PULSE 59; RESP 18; TEMP 37.2; O2SAT 97
== END 2020-08-17 10:00 | disposition home or self-care (01) ==
LOC: OR 09:42 → MEDSURG 08-17 07:21
PROVIDERS: PCP Internal Medicine; Visit Provider Thoracic Surgery (Cardiothoracic Vascular Surgery)
PROC: (CPT 33208; principal; 2020-08-16 10:50)
DX: I44.2 Atrioventricular block, complete (principal); G47.30 Sleep apnea, unspecified; I48.91 Unspecified atrial fibrillation; I25.10 Atherosclerotic heart disease of native coronary artery without angina pectoris; Z95.5 Presence of coronary angioplasty implant and graft; I10 Essential (primary) hypertension; E78.5 Hyperlipidemia, unspecified; E66.01 Morbid (severe) obesity due to excess calories; Z68.42 Body mass index [BMI] 45.0-49.9, adult
CPT/HCPCS: 33208; 36416; 71045; 76000; 77001; 81003; 82962; C1779; C1786; C1898; J0690; J2704; J3010; J7030

== ENCOUNTER 2020-09-02 11:37 | Outpatient (CLI) | payer BC, SELFPAY | END 2020-09-02 11:38 | disposition home or self-care (01) | LOC: LAB 11:42 | PROVIDERS: PCP Internal Medicine; Visit Provider Urology | DX: R97.20 Elevated prostate specific antigen [PSA] (principal) | CPT/HCPCS: 36415; 84153 ==

== ENCOUNTER 2020-09-29 15:37 | Outpatient (CLI) | payer BC, SELFPAY ==
--- NOTE | 2020-09-29 15:55 | XR_ITS ---
WS: [id number] Chest 2 views, 09/29/2020 Clinical Data: dYSPNEA ON EXERTION, SOB Comparison: Portable chest, 08/16/2020. Findings: No nodules, masses or effusions are seen. The heart is normal. The pulmonary vascularity is not increased. No pneumonia or pneumothorax is seen. The aortic arch shows mild tortuosity. There is a permanent pacemaker with the wires ending in the heart and the generator overlying the upper left chest. XR/XR chest 2V* [id number] Impression: Atherosclerosis and permanent pacemaker.
== END 2020-09-29 15:38 | disposition home or self-care (01) ==
PROVIDERS: PCP Internal Medicine; Visit Provider Nurse Practitioner Family
DX: J06.9 Acute upper respiratory infection, unspecified (principal); R06.09 Other forms of dyspnea; R06.02 Shortness of breath; I70.90 Unspecified atherosclerosis; Z95.0 Presence of cardiac pacemaker
CPT/HCPCS: 71046

== ENCOUNTER 2021-03-17 08:24 | Outpatient (CLI) | payer BC, SELFPAY ==
--- NOTE | 2021-03-17 08:41 | NM_ITS ---
WS: [id number] NUCLEAR MEDICINE WHOLE BODY BONE SCAN HISTORY: ADENOCARCINOMA, PROSTATE COMPARISON: None available. TECHNIQUE: The patient was injected with 25.1 mCi of Technetium 99m HDP and serial whole-body scintig ann marie have been performed with anterior and posterior images. Moderate area of increased uptake within the superior manubrial body of the sternum. There is also so me very slight increased uptake within the thoracic spine at probably the T4 and T9 levels. Mild AC joint, knee joint and ankle joint osteoarthritic changes. No rib lesions. NM/NM bone scan whole body* [id number] IMPRESSION: 1. Indeterminate but suspicious lesions within the sternum and what are probab ly the T4 and T9 vertebral bodies. These areas would be difficult to accurately evaluate radiographically. In order to evaluate all [address] of th e thoracic spine and sternum. This would help evaluate for subtle osteoblastic lesions. 2. The remaining areas of abnormal uptake are osteoarthritic.
--- NOTE | 2021-03-17 08:50 | CT_ITS ---
WS: [id number] CT ABDOMEN AND PELVIS WITH CONTRAST HISTORY: PROSTATE ADENOCARCINOMA TECHNIQUE: Imaging performed of the abdomen and pelvis with IV contrast. Single phase imaging of the abdomen. Coronal and sagittal reformats are submitted. All CT scans at [facility] use at [address] one of these dose optimization techniques: automated exposure control; mA and/or kV adjustment per patient size (includes targeted exams where dose is matched to clinical indication); or iterative re construction. IV CONTRAST: Omnipaque 300; 95 mL IV. Oral contrast: Yes. DLP: 1963.69 mGy.cm COMPARISON: None available. Lower thorax: Lung bases are clear. Pacer and defibrillator wires are noted within the RIGHT heart. N o hiatal hernia. Liver/biliary system: Normal size with no intrahepatic dilatation. Gallbladder: Normal. No gallstones or wall thickening. No pericholecystic fluid. Pancreas: Normal size pancreas and pancreatic duct. No adjacent inflammation. Spleen: Normal size spleen. No mass or infarct. Adrenal glands: Normal. Right kidney: Mildly lobulated renal cortex. No obstruction or solid mass. Left kidney: Mildly lobulated renal cortex. No obstruction or mass. Aorta: Mild atherosclerosis with no aneurysm. Lymphadenopathy: None. Free fluid: None. GI tract: Prior appendectomy. Stomach and small bowel are negative. There are moderate amount of dive rticula within the sigmoid colon. No acute diverticulitis. Abdominal wall: Unremarkable abdominal wall. No hernia. Pelvis: Moderately distended urinary bladder. Prostate gland is small caliber. No adjacent adenopathy . The perirectal fat and the mesial rectal fascia are negative. Bones: 0 there are a few scattered sclerotic foci within the sacrum and LEFT ilium which are probably bone islands. CT/CT abdomen pelvis w con* [id number] IMPRESSION: 1. No ascites or adenopathy. 2. Prior appendectomy. 3. Sigmoid diverticulosis without acute diverticulitis. 4. Small caliber prostate gland. 5. No osteoblastic bone disease.
[2021-03-17] MEDS: iohexol 300 mg/mL 50 mL Btl IV (09:21)
[2021-03-17 10:38] LABS: Blood Urea Nitrogen 20 mg/dL (8-23); Glomerular Filtration Rate 67.6 mL/min (90-130)
[2021-03-17] MEDS: iohexol 300 mg/mL 100 mL Btl IV (10:51)
== END 2021-03-17 08:25 | disposition home or self-care (01) ==
LOC: RAD 08:24
PROVIDERS: PCP Nurse Practitioner Family; Visit Provider Nurse Practitioner Family
DX: C61 Malignant neoplasm of prostate (principal); Q42.8 Congenital absence, atresia and stenosis of other parts of large intestine; K57.30 Diverticulosis of large intestine without perforation or abscess without bleeding
CPT/HCPCS: 36415; 74177; 78306; 82565; 84520; A9561

== ENCOUNTER 2021-04-07 14:08 | Outpatient (CLI) | payer BC, SELFPAY ==
--- NOTE | 2021-04-07 15:16 | N.ONRAD NP_ITS ---
Radiation Oncology Consultation Patient Name: Juan Antonio Mcpherson Date of : 1955 Date of Service: 04/07/2021 Attending Physician: Izaiah Robbins M.D. Juan Antonio Mcpherson was seen in consultation this afternoon at the request of Izaiah Varela M.D. for consideration of prostate radiotherapy for the management of a recently diagnosed high-risk prostate cancer. He initially was identified to have an elevated PSA level (6.2 ng/mL) in August 2020. An MRI of the prostate ordered on December 13, 2020 reported a focal area of decreased T2 signal in the left paramidline of the posterior peripheral zone measuring 1.4 cm. An MR fusion biopsy of the prostate gland performed on February 09, 2021 identified a 33g prostate gland. The biopsy diagnosed (pathology report was requested from [facility] and personally reviewed in [facility]) an adenocarcinoma with a Trixie???s Score of 4+4 = 8 (Grade Group 4) involving two cores from the left lateral apex, a Trixie???s Score of 3+4 = 7 (Grade Group 2) encompassing four cores from the left mid peripheral zone, and a Trixie???s score of 6 (Grade Group 1) within 30% of the sample from the right lateral base. A nuclear bone scintigraphy scan completed on March 17, 2021 demonstrated an area of moderate uptake in the sternum and slight activity within the fourth and ninth vertebral bodies. An abdominopelvic CT scan did not demonstrate metastatic disease. The patient was evaluated for radiotherapy treatment options. I discussed the patient's AJCC clinical stage IIC (T2aN0) high-risk prostate cancer and the National Comprehensive Cancer Network Guidelines recommending androgen deprivation therapy and external beam radiotherapy with or without brachytherapy. These recommendations were based upon several trials (RTOG 9202, EORTC 62256, and DART/GICOR). The EORTC study demonstrated superior survival with long-term ADT. Subgroup analyses of the RTOG and DART/GICOR trials confirmed an overall survival advantage in high-risk patients. I will order a thoracic spine CT to evaluate the abnormal bone scan results. If metastatic disease is not confirmed, I would endorse a 7/2-week course of radiotherapy which will be implemented following neoadjuvant hormonal therapy. I will request a medical oncology consultation for ADT. I will also order labs (CBC, CMP, PSA, and Testosterone). A planning CT scan with contrast will be acquired prior to implementation of radiation treatment to delineate the clinical target volumes. I reviewed the potential toxicities of pelvic radiotherapy. The patient has verbalized understanding would like to proceed as recommended. The patient's medical treatment plan was discussed with Izaiah Varela M.D. Signed by: Dr. Izaiah Robbins 04/07/2021 3:14:56 PM
[2021-04-07 15:47] LABS: Basophils % 0.6 %; Eosinophils # 0.3 10^3/uL (0.0-0.8); Eosinophils % 4.1 %; Hematocrit 48.8 % (42.0-52.0); Hemoglobin 16.8 g/dL (11.7-16.6); Lymphocytes # 1.7 10^3/uL (0.8-4.8); Lymphocytes % 23.8 %; Mean Corpuscular HGB Conc 34.4 g/dL (30.0-36.0); Mean Corpuscular Hemoglobin 32.2 pg (28.0-34.0); Mean Corpuscular Volume 93.7 fl (80-94); Mean Platelet Volume 11.2 fL (7.4-10.4); Monocytes # 0.6 10^3/uL (0.2-0.9); Monocytes % 8.7 %; Neutrophils # 4.42 10^3/uL (1.8-7.7); Neutrophils % 62.4 %; Nucleated Red Blood Cells % 0 %; Platelet Count 155 10^3/cmm (130-400); Red Blood Count 5.21 10^6/uL (4.1-5.3); Red Cell Distribution Width 13.3 % (12.1-15.1); White Blood Count 7.1 10^3/uL (4.0-10.0)
[2021-04-07 16:40] LABS: Alanine Aminotransferase 13 U/L (0-41); Albumin Level 4.3 g/dL (3.5-5.2); Alkaline Phosphatase 48 IU/L (40-130); Aspartate Amino Transferase 20 U/L (0-40); Blood Urea Nitrogen 19 mg/dL (8-23); Calcium 9.1 mg/dL (8.5-10.5); Carbon Dioxide 24 mmol/L (22-29); Chloride 102 mmol/L (98-107); Glomerular Filtration Rate 67.6 mL/min (90-130); Glucose 107 mg/dL (65-115); Osmolality Calculated 293 mOsm/kg (285-295); Sodium 140 mmol/L (136-145); Testosterone Total 126.2 ng/dL (193-740); Total Bilirubin 0.6 mg/dL (0.15-1.2); Total Protein 6.3 g/dL (6.6-8.7)
== END 2021-04-07 14:09 | disposition home or self-care (01) ==
LOC: ONCMED 14:12
PROVIDERS: PCP Nurse Practitioner Family; Visit Provider Radiology Radiation Oncology
DX: C61 Malignant neoplasm of prostate (principal)
CPT/HCPCS: 36415; 80053; 84153; 84403; 85025; 99205

== ENCOUNTER 2021-04-12 07:56 | Outpatient (CLI) | payer BC, SELFPAY ==
--- NOTE | 2021-04-12 17:50 | ONC CON_ITS ---
Dr. Agosto New Patient Note Patient: Juan Antonio Mcpherson Unit #: [id number]: 1955 Dicatated By: Jb Agosto M.D.Date of Visit: Apr 12, 2021 Onc MED New Patient/Consult Referring Physician: Dr. BENITO JOLLY M.D. History of Present Illness: Mr. Juan Antonio Mcpherson, is a 65-year-old gentleman with a history of non-Hodgkin lymphoma involving mediastinum, diagnosed in 2006, at that time underwent R-CHOP x6 followed by consolidation radiation therapy to the chest. As per patient during his routine follow-up his PSA level showed progression and in August 2020 it was 6.2 ng/mL, MRI scan of the prostate was done on December 21, 2020 which showed focal area of decreased T2 signal in the left paramidline of posterior peripheral zone measuring 1.4 cm. An MR fusion biopsy of prostate gland performed on February 09, 2021 which confirmed adenocarcinoma with Lawrence score of 4+4, (group 4) involving 2 cores from left lateral apex and a Lawrence score of 3+4 equal to 7 involving 4 cores from left mid peripheral zone and a Lawrence score of 6 in 30% of the sample from right lateral base. Clinical stage (T2 a, N0, MX) stage IIc, group 4, high risk As a staging work-up, patient underwent bone scan done on March 17, 2021 which shows area of moderate uptake in the sternum and slight activity within the fourth and ninth vertebral body and CT scan of abdomen pelvis done on March 17, 2021 showed no evidence of metastatic disease. Patient denies any dysuria or hematuria, denies any bony pains, denies any weight loss, denies any fever or chills, or night sweats or recurrent fever, Denies any abdominal fullness or peripheral lymphadenopathy Patient denies smoking alcohol use Past Medical History: Mr. Mcpherson's medical history consists of atrial fibrillation and history of non hodgkins lymphoma. Past Surgical History: Mr. Mcpherson's surgical/procedural history consists of appendectomy, cardiac stents, pacemaker placement, and tonsillectomy. Medications: Cilostazol 1 Tablet (of 50 mg) Oral, Eliquis Tablet Oral, Fenofibrate Tablet Oral, hydroCHLOROthiazide 1.5 Tablet (of 12.5 mg) Oral, Indomethacin 1 Capsule (of 50 mg) Oral, Metoprolol Succinate ER 1 Tablet (of 100 mg) Tablet SR 24 HR Oral, Oxybutynin Chloride Tablet Oral, Rosuvastatin Calcium Tablet Oral, Tamsulosin HCl Capsule Oral, Vitamin D-3 Capsule Oral Allergies: No Known Allergies. Social History: Mr. Mcpherson is . Mr. Mcpherson has never smoked. He drinks daily. He consumes 2 drinks/day. Family History: There is no documented family history. Review Of Symptoms: Review of Systems is not available for this patient. Vital Signs: Performed on Apr 07, 2021 14:41: 74 in, 346.2 lbs, 95.7 F, 78 /min, 20 /min, 140/90 mm(hg), 98 %, 0, 5, and Performed on Apr 07, 2021 14:41: 44.45 kg/m2 (HIGH). Performance Status: 0 - Fully active, able to carry on all predisease activities without restrictions. (ECOG) Physical Examination: ENMT - No mouth sores, no thrush, no jaundice, Respiratory - Lungs are clear to auscultation, Cardiovascular - Irregular rhythm, Abdomen - Soft, bowel sounds present, Extremities - No visible edema. Lab/Imaging: Most recent lab results are not available for this patient. Impression: Adenocarcinoma the prostate per MR fusion biopsy of prostate gland done on February 09, 2021 which confirmed Trixie score 4+4 = 8 (group 4) involving 2 cores from left lateral apex, Lawrence score 3+4 involving 4 cores from the left mid peripheral zone and a Trixie score of 6 involving cores from right lateral base., Clinical stage IIc, (T2AN0, MX), high risk, being group 4, Trixie score 4+4, PSA 6.2 in August 2020 Bone scan done on March 17, 2021 shows indeterminate but suspicious lesions within sternum and probably T4 and T9 vertebral body, CT scan of abdomen pelvis done on March 17, 2021 showed no osteoblastic bone disease, no lymphadenopathy History of non-Hodgkin lymphoma involving mediastinum status post R-CHOP x6 followed by consolidation radiation therapy in 2006 Sleep apnea, on CPAP Coronary artery disease status post stent Atrial fibrillation, on Eliquis, status post Pacemaker Plan: Discussed with patient regarding his disease status and treatment options, clinically patient has stage IIc, T2 aN0 MX but high risk as pathology showed Lawrence score 4+4 in 2 cores from left lateral apex his PSA was 6.2 in August 2020 and repeat PSA on April 07, 2021 was 4.13 and testosterone level was 126.2, remaining CMP within normal limits and CBC shows white blood count 7.1 hemoglobin 16.8 hematocrit 48.8 platelets 155,000 His staging bone scan showed abnormal uptake in the sternum and T4 and T9, there was a concern regarding possible metastatic disease, CT scan of chest was ordered by radiation oncology, which is scheduled for this week. Being high risk, patient was recommended ADT with Zoladex/short course of Casodex in neoadjuvant fashion, followed by concurrent and adjuvant with Zoladex alone for 2 [address] scan of chest shows abnormality in that case we will consider CT-guided biopsy of involved area. We will give him prescription for Casodex 50 mg p.o. daily for 2 weeks and also start him on Zoladex 10.8 mg IM every 3 months. All the side effect possible benefits associated with ADT including but not limited to hot flashes, mood swings, bone demineralization, gynecomastia, fluid retention, weight gain, decreased libido, erectile dysfunction etc. further teaching will done by chemotherapy nurse, will obtain approval from his insurance prior to the treatment. Patient has already seen radiation oncology and has follow-up appointment. Patient return to clinic in 1 month with CBC CMP, PSA and testosterone. Patient has history of non-Hodgkin's lymphoma involving mediastinal status post R-CHOP followed by consolidation radiation therapy, now with no signs symptom suggestive of recurrence of disease, no B symptoms. Patient also has sleep apnea for which she is on CPAP, his CBC shows mildly elevated hemoglobin/hematocrit which could be reactive, will monitor. Signed By: Jb Agosto M.D. <<Signature on File>>
== END 2021-04-12 07:57 | disposition home or self-care (01) ==
LOC: ONCMED 07:58
PROVIDERS: PCP Nurse Practitioner Family; Visit Provider Internal Medicine Hematology & Oncology
DX: C61 Malignant neoplasm of prostate (principal); Z79.818 Long term (current) use of other agents affecting estrogen receptors and estrogen levels; Z85.72 Personal history of non-Hodgkin lymphomas; G47.30 Sleep apnea, unspecified; I25.10 Atherosclerotic heart disease of native coronary artery without angina pectoris; I48.91 Unspecified atrial fibrillation; Z79.01 Long term (current) use of anticoagulants; D58.2 Other hemoglobinopathies
CPT/HCPCS: 99205

== ENCOUNTER 2021-04-13 08:44 | Outpatient (CLI) | payer BC, SELFPAY ==
--- NOTE | 2021-04-13 | CT_ITS ---
WS: [id number] CT THORACIC SPINE WITH CONTRAST TECHNIQUE: Contrast-enhanced CT of the thoracic spine with coronal and sagittal reformatted images. CLINICAL INFORMATION: ABNORMALITIES AT T4, T9 COMPARISON: None. DLP: 1263.[address] scans at [facility] use at least one of these dose optimization techniques: automated e xposure control; mA and/or kV adjustment per patient size (includes targeted exams where dose is matc hed to clinical indication); or iterative reconstruction. FINDINGS: Mild thoracic curve. Chronic anterior wedging mid thoracic spine with endplate Schmorl's nodes. No ap parent bony or osteoblastic lesions in the thoracic spine at T4 or T9 to correspond to the bone scan findings. No acute appearing compression fractures. Disc space narrowing throughout the thoracic spin e. Endplate sclerosis T2-T3 with disc space narrowing. Mild chronic anterior wedging at T6 and T7. Central tiny disc osteophyte protrusions at T5-T6 and T6-T7 with slight indentation on the thoracic c ord and mild central canal stenosis. Mild bony foraminal narrowing more prominent at left T8-T9, bilateral T9-T10, bilateral T10-11, bilat eral T11-12. Moderate facet arthropathy in the lower thoracic spine. Normal visualized thyroid gland. Slight atelectasis partially visualized in the lung bases. CT/CT thoracic spine w con [id number] IMPRESSION: 1. Mild thoracic curve with mild thoracic kyphosis. 2. No apparent bony or osteoblastic lesions in the thoracic spine at T4 or T9 to correspond to the bone scan findings. Consider follow-up bone scan in 3 yane hs. 3. Chronic anterior wedging in the mid thoracic spine at T6 and T7 with endpla te Schmorl's nodes. No acute appearing compression fractures. 4. Small central disc osteophyte protrusions at T5-6 and T6-T7 with slight ind entation on the thoracic core and mild central canal stenosis. 5. Mild bony foraminal narrowing more prominent at left T8-T9, bilateral T9-T1 0, bilateral T10-11, and bilateral T11-12. 6. Moderate facet arthropathy in the lower thoracic spine.
[2021-04-13] MEDS: iohexol 350 mg/mL 100 mL Btl IV (13:55)
== END 2021-04-13 08:45 | disposition home or self-care (01) ==
PROVIDERS: PCP Nurse Practitioner Family; Visit Provider Radiology Radiation Oncology
DX: M48.54XA Collapsed vertebra, not elsewhere classified, thoracic region, initial encounter for fracture (principal); M25.78 Osteophyte, vertebrae; M47.814 Spondylosis without myelopathy or radiculopathy, thoracic region; M51.24 Other intervertebral disc displacement, thoracic region
CPT/HCPCS: 72129; Q9967

== ENCOUNTER 2021-05-24 07:49 | Outpatient (CLI) | payer BC, SELFPAY ==
--- NOTE | 2021-05-24 08:27 | USCV_ITS ---
Juan Antonio Mcpherson Age: 65 Gender: M : 1955 Exam Date: 05/24/2021 08:33 Ordering Phys: Kashmir Thurman MD (Andy) ([email or web address]) Technologist: ISIDORO Exam Location: [facility] [place] Indication: HISTORY: Lower extremity edema. PROCEDURES: Bilateral duplex Venous Insufficiency study of the Deep and Superficial systems was carried out according to normal protocol with the patient in supine positon for deep system and dependent position for the superficial system. FINDINGS: No evidence of DVT seen in any vessel visualized at this time. There appears to be reflux present throughout the Left GSV. The veins were found to be easily compressible with spontaneous blood flow. Non pulsatile flow pattern. CONCLUSIONS 1. No evidence of DVT in the above-mentioned identifiable veins. 2. Significant venous reflux of greater than 4000 ms were noted throughout the greater saphenous vein segments on the left side including the below-knee segment. The venous segments were greater than 1 cm deep from the surface and with a diameter ranging anywhere from 0.5 to 0.65 cm. 3. No significant venous reflux in the right side. 4. No significant venous reflux were noted in the deep veins on either side. Dr Baylee Wolf MD [facility] (Electronically Signed) Final Date: 24 May 2021 15:01 S
== END 2021-05-24 07:50 | disposition home or self-care (01) ==
PROVIDERS: PCP Nurse Practitioner Family; Visit Provider Thoracic Surgery (Cardiothoracic Vascular Surgery)
DX: M79.606 Pain in leg, unspecified (principal); M79.89 Other specified soft tissue disorders
CPT/HCPCS: 93970

== ENCOUNTER 2021-05-27 08:27 | Outpatient (CLI) | payer BC, SELFPAY ==
--- NOTE | 2021-05-27 09:01 | ONC FU_ITS ---
Kaila Burleson Progress Note Patient: Juan Antonio Mcpherson < Unit #: [id number]: 1955 Dicatated By: Kaila Burleson N.P.Date of Visit:May 27, 2021 Onc MED Follow-up/Prog Note Chief Complaint: Prostate cancer History of Present Illness: Mr. Juan Antonio Mcpherson, is a 65-year-old gentleman with a history of non-Hodgkin lymphoma involving mediastinum, diagnosed in 2006, at that time underwent R-CHOP x6 followed by consolidation radiation therapy to the chest. As per patient during his routine follow-up his PSA level showed progression and in August 2020 it was 6.2 ng/mL, MRI scan of the prostate was done on December 21, 2020 which showed focal area of decreased T2 signal in the left paramidline of posterior peripheral zone measuring 1.4 cm. An MR fusion biopsy of prostate gland performed on February 09, 2021 which confirmed adenocarcinoma with Weatherford score of 4+4, (group 4) involving 2 cores from left lateral apex and a Trixie score of 3+4 equal to 7 involving 4 cores from left mid peripheral zone and a Trixie score of 6 in 30% of the sample from right lateral base. Clinical stage (T2 a, N0, MX) stage IIc, group 4, high risk As a staging work-up, patient underwent bone scan done on March 17, 2021 which shows area of moderate uptake in the sternum and slight activity within the fourth and ninth vertebral body and CT scan of abdomen pelvis done on March 17, 2021 showed no evidence of metastatic disease. Patient denies smoking alcohol use Patient presents today for education on Zoladex. He states he is feeling well. He has a good appetite. No fever, chills, night sweats. No shortness of breath, cough, chest pain. No GI problems or problems he denies joint or muscle pain. No headaches or dizziness. 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 Review Of Symptoms: see above. Past Medical History: Atrial fibrillation History of non hodgkins lymphoma Past Surgical History: Appendectomy Cardiac stents Pacemaker placement Tonsillectomy Allergies: No Known Allergies. Medications: Cilostazol 1 Tablet (of 50 mg) Oral Eliquis Tablet Oral Fenofibrate Tablet Oral hydroCHLOROthiazide 1.5 Tablet (of 12.5 mg) Oral Indomethacin 1 Capsule (of 50 mg) Oral Metoprolol Succinate ER 1 Tablet (of 100 mg) Tablet SR 24 HR Oral Oxybutynin Chloride Tablet Oral Rosuvastatin Calcium Tablet Oral Tamsulosin HCl Capsule Oral Vitamin D-3 Capsule Oral Family History: There is no documented family history. Social History: Mr. Mcpherson is . Mr. Mcpherson has never smoked. He drinks daily. He consumes 2 drinks/day. Physical Examination: Performed on May 27, 2021 08:37: Height - 74.00 in, Weight - 348.2 lbs (HIGH), BSA - 2.75 sq.m, BMI - 44.71 (HIGH), Temperature - 97.2 F (LOW), Pulse - 110 /min (HIGH), Respiration - 18 /min, BP - 153/98 mm(hg) (HIGH), O2 Sat - 99 %, Pain - 0, and Fatigue - 4. Performance Status: 0 - Fully active, able to carry on all predisease activities without restrictions. (ECOG) Constitutional Alert, cooperative, oriented. Mood and affect appropriate. Appears close to chronological age. Well nourished. Well developed. Respiratory Lungs are clear to auscultation without rhonchi or wheezing. Cardiovascular Regular rate and rhythm of heart without murmurs, gallops or rubs. Abdomen Non-tender, non-distended, no masses, ascites or hepatosplenomegaly. Good bowel sounds. No guarding or rebound tenderness. Extremities No visible deformities, no cyanosis, clubbing or edema. Pulses 3+ and equal bilaterally. Musculoskeletal No tenderness or swelling, normal range of motion without obvious weakness. Psychiatric Alert and oriented times three. Coherent speech. Verbalizes understanding of our discussions today. Laboratory: Most recent lab results are not available for this patient. Impression: Adenocarcinoma the prostate per MR fusion biopsy of prostate gland done on February 09, 2021 which confirmed Weatherford score 4+4 = 8 (group 4) involving 2 cores from left lateral apex, Trixie score 3+4 involving 4 cores from the left mid peripheral zone and a Trixie score of 6 involving cores from right lateral base., Clinical stage IIc, (T2AN0, MX), high risk, being group 4, Weatherford score 4+4, PSA 6.2 in August 2020 Bone scan done on March 17, 2021 shows indeterminate but suspicious lesions within sternum and probably T4 and T9 vertebral body, CT scan of abdomen pelvis done on March 17, 2021 showed no osteoblastic bone disease, no lymphadenopathy History of non-Hodgkin lymphoma involving mediastinum status post R-CHOP x6 followed by consolidation radiation therapy in 2006 Sleep apnea, on CPAP Plan: Discussed with patient regarding his disease status and treatment options, clinically patient has stage IIc, T2 aN0 MX but high risk as pathology showed Trixie score 4+4 in 2 cores from left lateral apex his PSA was 6.2 in August 2020 and repeat PSA on April 07, 2021 was 4.13 and testosterone level was 126.2, remaining CMP within normal limits and CBC shows white blood count 7.1 hemoglobin 16.8 hematocrit 48.8 platelets 155,000 His staging bone scan showed abnormal uptake in the sternum and T4 and T9, there was a concern regarding possible metastatic disease, CT scan of chest was ordered by radiation oncology, which is scheduled for this week. Being high risk, patient was recommended ADT with Zoladex/short course of Casodex in neoadjuvant fashion, followed by concurrent and adjuvant with Zoladex alone for 2 to [address] scan of chest shows abnormality in that case we will consider CT-guided biopsy of involved area. We will give him prescription for Casodex 50 mg p.o. daily for 2 weeks and also start him on Zoladex 10.8 mg IM every 3 months. All the side effect possible benefits associated with ADT including but not limited to hot flashes, mood swings, bone demineralization, gynecomastia, fluid retention, weight gain, decreased libido, erectile dysfunction etc. further teaching will done by chemotherapy nurse, will obtain approval from his insurance prior to the treatment. Patient has already seen radiation oncology and has follow-up appointment. Patient has history of non-Hodgkin's lymphoma involving mediastinal status post R-CHOP followed by consolidation radiation therapy, now with no signs symptom suggestive of recurrence of disease, no B symptoms. Patient also has sleep apnea for which she is on CPAP, his CBC shows mildly elevated hemoglobin/hematocrit which could be reactive, will monitor. Patient presents today for education for Zoladex. Handouts were provided. Indications for use and side effects were discussed in detail including the possibility for hot flashes, mood swings, and gynecomastia. Patient return to clinic in 1 month with CBC CMP, PSA and testosterone. Signed By: Kaila Burleson N.Keshia. <<Signature on File>>
[2021-05-27] MEDS: goserelin acetate 10.8 mg Implant SUBCUT (09:45)
[2021-05-27] MEDS: lidocaine 1% INJ 20 mL INJECTION (13:12)
== END 2021-05-27 08:28 | disposition home or self-care (01) ==
PROVIDERS: PCP Nurse Practitioner Family; Visit Provider Internal Medicine Hematology & Oncology
DX: C61 Malignant neoplasm of prostate (principal); G47.30 Sleep apnea, unspecified; Z85.72 Personal history of non-Hodgkin lymphomas; Z79.818 Long term (current) use of other agents affecting estrogen receptors and estrogen levels
CPT/HCPCS: 96372; 96402; 99215; J9202

== ENCOUNTER 2021-07-01 08:27 | Outpatient (CLI) | payer BC, SELFPAY ==
[2021-07-01 09:14] LABS: Basophils # 0.1 10^3/uL (0.0-0.1); Basophils % 0.7 %; Eosinophils # 0.2 10^3/uL (0.0-0.8); Eosinophils % 3.5 %; Hematocrit 45.5 % (42.0-52.0); Hemoglobin 15.6 g/dL (11.7-16.6); Lymphocytes # 1.8 10^3/uL (0.8-4.8); Lymphocytes % 25.8 %; Mean Corpuscular HGB Conc 34.3 g/dL (30.0-36.0); Mean Corpuscular Hemoglobin 32.8 pg (28.0-34.0); Mean Corpuscular Volume 95.6 fl (80-94); Mean Platelet Volume 11.2 fL (7.4-10.4); Monocytes # 0.5 10^3/uL (0.2-0.9); Monocytes % 7.8 %; Neutrophils % 61.8 %; Nucleated Red Blood Cells % 0 %; Platelet Count 165 10^3/cmm (130-400); Red Blood Count 4.76 10^6/uL (4.1-5.3); Red Cell Distribution Width 13.6 % (12.1-15.1); White Blood Count 6.8 10^3/uL (4.0-10.0)
[2021-07-01 09:41] LABS: Alanine Aminotransferase 17 U/L (0-41); Albumin Level 4.2 g/dL (3.5-5.2); Alkaline Phosphatase 53 IU/L (40-130); Anion Gap 18.2 (5-19); Aspartate Amino Transferase 25 U/L (0-40); Blood Urea Nitrogen 19 mg/dL (8-23); Calcium 9.3 mg/dL (8.5-10.5); Carbon Dioxide 22 mmol/L (22-29); Chloride 96 mmol/L (98-107); Glucose 123 mg/dL (65-115); Osmolality Calculated 280 mOsm/kg (285-295); Potassium 3.2 mmol/L (3.5-5.1); Prostate Specific Antigen 0.969 ng/mL (0-4); Sodium 133 mmol/L (136-145); Total Bilirubin 0.7 mg/dL (0.15-1.2); Total Protein 6.2 g/dL (6.6-8.7)
--- NOTE | 2021-07-01 11:27 | ONC FU_ITS ---
Dr. Agosto follow up note Patient: Juan Antonio Mcpherson Unit #: [id number]: 1955 Dicatated By: Jb Agosto M.D.Date of Visit:Jul 01, 2021 Onc Med Follow-up/Prog Note History of Present Illness: Mr. Juan Antonio Mcpherson, is a 66-year-old gentleman with a history of non-Hodgkin lymphoma involving mediastinum, diagnosed in 2006, at that time underwent R-CHOP x6 followed by consolidation radiation therapy to the chest. As per patient during his routine follow-up his PSA level showed progression and in August 2020 it was 6.2 ng/mL, MRI scan of the prostate was done on December 21, 2020 which showed focal area of decreased T2 signal in the left paramidline of posterior peripheral zone measuring 1.4 cm. An MR fusion biopsy of prostate gland performed on February 09, 2021 which confirmed adenocarcinoma with [place] score of 4+4, (group 4) involving 2 cores from left lateral apex and a Trixie score of 3+4 equal to 7 involving 4 cores from left mid peripheral zone and a [place]rixie score of 6 in 30% of the sample from right lateral base. Clinical stage (T2 a, N0, MX) stage IIc, group 4, high risk As a staging work-up, patient underwent bone scan done on March 17, 2021 which shows area of moderate uptake in the sternum and slight activity within the fourth and ninth vertebral body and CT scan of abdomen pelvis done on March 17, 2021 showed no evidence of metastatic disease. Started on 3 monthly Zoladex on May 27, 2021, being high risk will consider it for 2 to 3 years Patient denies smoking alcohol use Came for follow-up, denies any specific complaints, except not getting enough sleep at night and requesting sleeping pill, patient has history of sleep apnea, now on CPAP machine. No fever chills, no nausea or vomiting, no diarrhea or constipation, no hot flashes, no mood swings, tolerated first dose of Zoladex, well Medications: Cilostazol 1 Tablet (of 50 mg) Oral, Eliquis Tablet Oral, Fenofibrate Tablet Oral, hydroCHLOROthiazide 1.5 Tablet (of 12.5 mg) Oral, Indomethacin 1 Capsule (of 50 mg) Oral, Metoprolol Succinate ER 1 Tablet (of 100 mg) Tablet SR 24 HR Oral, Oxybutynin Chloride Tablet Oral, Rosuvastatin Calcium Tablet Oral, Tamsulosin HCl Capsule Oral, Vitamin D-3 Capsule Oral Allergies: No Known Allergies. Review of Systems: Review of Systems is not available for this patient. Vital Signs: Performed on Jul 01, 2021 10:12 Height - 74.00 in Weight - 342.0 lbs (LOW) BSA - 2.73 sq.m BMI - 43.91 (HIGH) Temperature - 97.6 F (LOW) Pulse - 94 /min Respiration - 18 /min BP - 157/86 mm(hg) (HIGH) O2 Sat - 95 % (LOW) Pain - 0 Fatigue - 3 Performance Status: 0 - Fully active, able to carry on all predisease activities without restrictions. (ECOG) Physical Examination: ENMT - No mouth sores, no thrush, no jaundice, Respiratory - Poor air entry otherwise clear, Cardiovascular - Regular rate and rhythm of heart , Abdomen - Soft, bowel sounds present, Extremities - No visible edema. Lab/Imaging: Most recent lab results are not available for this patient. Impression: Adenocarcinoma the prostate per MR fusion biopsy of prostate gland done on February 09, 2021 which confirmed [place] score 4+4 = 8 (group 4) involving 2 cores from left lateral apex, Trixie score 3+4 involving 4 cores from the left mid peripheral zone and a [place]rixie score of 6 involving cores from right lateral base., Clinical stage IIc, (T2AN0, MX), high risk, being group 4, Trixie score 4+4, PSA 6.2 in August 2020 Bone scan done on March 17, 2021 shows indeterminate but suspicious lesions within sternum and probably T4 and T9 vertebral body, CT scan of abdomen pelvis done on March 17, 2021 showed no osteoblastic bone disease, no lymphadenopathy Started on Zoladex for 2 to 3 years on May 27, 2021 History of non-Hodgkin lymphoma involving mediastinum status post R-CHOP x6 followed by consolidation radiation therapy in 2006 Sleep apnea, on CPAP Plan: Discussed with patient regarding his labs white blood count 6.8 hemoglobin 15.6 hematocrit 45.5, platelets 165,000 CMP within normal limits except potassium 3.2, PSA 0.969 Clinically, patient is doing well with no new signs symptoms, tolerating Zoladex well. Patient was also prescribed Casodex 50 mg p.o. daily for 2 weeks somehow Due to computer error he did not get the prescription, discussed with patient as did not have any symptom suggestive of obstructive uropathy so Casodex is not needed to prevent flare due to Zoladex. Patient has already seen radiation oncology, will be simulated on July 19, 2021 and following week he will start concurrent radiation therapy to the prostate. Return to clinic in 2 months with PSA and for 3 monthly Zoladex Signed By: Jb Agosto M.D. <<Signature on File>>
[2021-07-05 00:17] LABS: Testosterone, Free 0.8 pg/mL (46.0-224.0)
== END 2021-07-01 08:28 | disposition home or self-care (01) ==
PROVIDERS: PCP Nurse Practitioner Family; Visit Provider Internal Medicine Hematology & Oncology
DX: C61 Malignant neoplasm of prostate (principal); G47.30 Sleep apnea, unspecified; Z85.72 Personal history of non-Hodgkin lymphomas; Z79.818 Long term (current) use of other agents affecting estrogen receptors and estrogen levels; Z79.899 Other long term (current) drug therapy; Z92.21 Personal history of antineoplastic chemotherapy
CPT/HCPCS: 36415; 80053; 84153; 84402; 85025; 99214

== ENCOUNTER 2021-07-06 14:23 | Outpatient (CLI) | payer BC, SELFPAY ==
--- NOTE | 2021-07-06 14:55 | XRR_ITS ---
PROCEDURE INFORMATION: Exam: XR Right Knee Exam date and time: 07/06/2021 2:59 PM Age: 66 years old Clinical indication: Pain and injury or trauma; Fall; Blunt trauma; Bilateral; Patient HX: PT fell 2 weeks ago; C/O pain bilat knees. Left has brusing all over. Smoking--n. Cancer (type)--non hodkin's lymphoma; Prostate; Additional info: Knee pain right TECHNIQUE: Imaging protocol: XR Right knee. Views: 3 views. COMPARISON: [place] bone scan whole body* [id number] 03/17/2021 8:41 AM FINDINGS: Bones/joints: Osseous structures are intact. Negative for fracture. Mild tricompartmental DJD of the knee. Soft tissues: Normal. XR/XR knee RT 3V* [id number] IMPRESSION: No acute findings. Mild tricompartmental DJD of the knee.
--- NOTE | 2021-07-06 15:00 | XRR_ITS ---
PROCEDURE INFORMATION: Exam: XR Left Knee Exam date and time: 07/06/2021 2:59 PM Age: 66 years old Clinical indication: Pain and injury or trauma; Fall; Blunt trauma; Bilateral; Patient HX: PT fell 2 weeks ago; C/O pain bilat knees. Left has brusing all over. Smoking--n. Cancer (type)--non hodkin's lymphoma; Prostate; Additional info: Left knee pain; TECHNIQUE: Imaging protocol: XR Left knee. Views: 3 views. COMPARISON: [place] bone scan whole body* [id number] 03/17/2021 8:41 AM FINDINGS: Bones/joints: Osseous structures are intact. No acute fracture. Old callused fracture of the proximal fibula noted. Mild DJD of the medial and patellofemoral compartments. Soft tissues: Normal. XR/XR knee LT 3V* [id number] IMPRESSION: No acute findings. Mild DJD of the medial and patellofemoral compartments.
== END 2021-07-06 14:24 | disposition home or self-care (01) ==
PROVIDERS: PCP Nurse Practitioner Family; Visit Provider Nurse Practitioner Family
DX: M17.0 Bilateral primary osteoarthritis of knee (principal)
CPT/HCPCS: 73562

== ENCOUNTER 2021-07-19 08:26 | Outpatient (RCR) | payer BC, SELFPAY ==
--- NOTE | 2021-07-19 | CT_ITS ---
Radiation Therapy Planning CT images; total exam DLP: 1304.44 mGy-cm MTDD
== END 2021-07-23 23:59 | disposition home or self-care (01) ==
LOC: ONCMED 08:26
PROVIDERS: PCP Nurse Practitioner Family; Visit Provider Radiology Radiation Oncology
DX: Z51.0 Encounter for antineoplastic radiation therapy (principal); C61 Malignant neoplasm of prostate; Z79.899 Other long term (current) drug therapy
CPT/HCPCS: 77300; 77301; 77334; 77338; 77470; Q9967

== ENCOUNTER 2021-08-23 08:25 | Oncology outpatient (recurring) (ONCR) | payer BC, SELFPAY ==
--- NOTE | 2021-07-25 09:59 | ONCRAD TMN_ITS ---
Radiation Oncology Treatment Management Note Patient Name: Juan Antonio Mcpherson Date of : 1955 Date of Service: 07/25/2021 Attending Physician: Izaiah Robbins M.D. Juan Antonio Mcpherson is a 66 year old white male diagnosed with a clinical stage IIC (T2aN0) high-risk prostate cancer. He initially was identified to have an elevated PSA level (6.2 ng/mL) in August 2020. An MRI of the prostate ordered on December 13, 2020 reported a focal area of decreased T2 signal in the left paramidline of the posterior peripheral zone measuring 1.4 cm. An MR fusion biopsy of the prostate gland performed on February 09, 2021 identified a 33g prostate gland. The biopsy diagnosed an adenocarcinoma with a [place]???s Score of 4+4 = 8 (Grade Group 4) involving two cores from the left lateral apex, a [place]???s Score of 3+4 = 7 (Grade Group 2) encompassing four cores from the left mid peripheral zone, and a [place]???s score of 6 (Grade Group 1) within 30% of the sample from the right lateral base. A nuclear bone scintigraphy scan completed on March 17, 2021 demonstrated an area of moderate uptake in the sternum and slight activity within the fourth and ninth vertebral bodies. An abdominopelvic CT scan did not demonstrate metastatic disease. A GnRH agonist (Zoladex) was administered May 27, 2021. The patient has received 2 Gy of a prescribed 46 Simms to the prostate and regional lymph nodes with an intensity modulated radiotherapy plan utilizing a step and shoot treatment technique. An additional 32 Simms will be delivered to the prostate gland subsequent to the initial aranda. He has received neoadjuvant hormonal therapy. Upon review of systems, he denied any genitourinary complaints related to radiotherapy. On physical examination, the patient weighed 244 lbs. His temperature was 96.6 ???F and the blood pressure was 144/88 mmHg. The pulse was 93 bpm and his respiratory rate was 18. There was no erythema within the treatment aranda. Continue pelvic radiotherapy as prescribed. Signed by: Izaiah Robbins 07/25/2021 9:58:36 AM
--- NOTE | 2021-08-01 08:59 | ONCRAD TMN_ITS ---
Radiation Oncology Treatment Management Note Patient Name: Juan Antonio Mcpherson Date of : 1955 Date of Service: 08/01/2021 Attending Physician: Izaiah Robbins M.D. Juan Antonio Mcpherson is a 66 year old white male diagnosed with a clinical stage IIC (T2aN0) high-risk prostate cancer. He initially was identified to have an elevated PSA level (6.2 ng/mL) in August 2020. An MRI of the prostate ordered on December 13, 2020 reported a focal area of decreased T2 signal in the left paramidline of the posterior peripheral zone measuring 1.4 cm. An MR fusion biopsy of the prostate gland performed on February 09, 2021 identified a 33g prostate gland. The biopsy diagnosed an adenocarcinoma with a [place]???s Score of 4+4 = 8 (Grade Group 4) involving two cores from the left lateral apex, a [place]???s Score of 3+4 = 7 (Grade Group 2) encompassing four cores from the left mid peripheral zone, and a [place]???s score of 6 (Grade Group 1) within 30% of the sample from the right lateral base. A nuclear bone scintigraphy scan completed on March 17, 2021 demonstrated an area of moderate uptake in the sternum and slight activity within the fourth and ninth vertebral bodies. An abdominopelvic CT scan did not demonstrate metastatic disease. A GnRH agonist (Zoladex) was administered May 27, 2021. The patient has received 12 Gy of a prescribed 46 Simms to the prostate and regional lymph nodes with an intensity modulated radiotherapy plan utilizing a step and shoot treatment technique. An additional 32 Simms will be delivered to the prostate gland subsequent to the initial aranda. He has received neoadjuvant hormonal therapy. Upon review of systems, he denied any genitourinary complaints related to radiotherapy. On physical examination, the patient weighed 344 lbs. His temperature was 96.1 ???F and the blood pressure was 143/80 mmHg. The pulse was 66 bpm and his respiratory rate was 18. There was no erythema within the treatment aranda. Continue pelvic radiotherapy as planned. Signed by: Izaiah Robbins 08/01/2021 8:57:43 AM
--- NOTE | 2021-08-08 08:54 | ONCRAD TMN_ITS ---
Radiation Oncology Treatment Management Note Patient Name: Juan Antonio Mcpherson Date of : 1955 Date of Service: 08/08/2021 Attending Physician: Izaiah Robbins M.D. Juan Antonio Mcpherson is a 66 year old white male diagnosed with a clinical stage IIC (T2aN0) high-risk prostate cancer. He initially was identified to have an elevated PSA level (6.2 ng/mL) in August 2020. An MRI of the prostate ordered on December 13, 2020 reported a focal area of decreased T2 signal in the left paramidline of the posterior peripheral zone measuring 1.4 cm. An MR fusion biopsy of the prostate gland performed on February 09, 2021 identified a 33g prostate gland. The biopsy diagnosed an adenocarcinoma with a Trix[place]???s Score of 4+4 = 8 (Grade Group 4) involving two cores from the left lateral apex, a [place]???s Score of 3+4 = 7 (Grade Group 2) encompassing four cores from the left mid peripheral zone, and a [place]???s score of 6 (Grade Group 1) within 30% of the sample from the right lateral base. A nuclear bone scintigraphy scan completed on March 17, 2021 demonstrated an area of moderate uptake in the sternum and slight activity within the fourth and ninth vertebral bodies. An abdominopelvic CT scan did not demonstrate metastatic disease. A GnRH agonist (Zoladex) was administered May 27, 2021. The patient has received 22 Gy of a prescribed 46 Simms to the prostate and regional lymph nodes with an intensity modulated radiotherapy plan utilizing a step and shoot treatment technique. An additional 32 Simms will be delivered to the prostate gland subsequent to the initial aranda. He has received neoadjuvant hormonal therapy. Upon review of systems, he described dysuria. On physical examination, the patient weighed 337 lbs. His temperature was 97.5 ???F and the blood pressure was 130/73 mmHg. The pulse was 83 bpm and his respiratory rate was 16. There was no erythema within the treatment aranda. Continue pelvic radiotherapy as prescribed. I will order a urinalysis for his complaint of dysuria and refill the Lunesta. Signed by: Izaiah Robbins 08/08/2021 8:53:02 AM
[2021-08-08 09:08] LABS: Add Urine Microscopic? NO; Charge for UA Resulting for Rev
[2021-08-08 09:18] LABS: Urine Color Yellow (Yellow)
[2021-08-08 09:19] LABS: Bilirubin Urine Neg (Negative); Blood Urine Neg (Negative); Glucose Urine UA Norm (Normal); Ketones Urine Negative (Negative); Leukocyte Esterase Urine Negative (Negative); Nitrate Urine Negative (Negative); Protein Urine Neg (Negative); Specific Gravity, Urine 1.015 (1.005-1.030); Urine Appearance Clear (CLEAR); Urobilinogen Urine 1 mg/dL (Negative); pH Urine 6 (5-7)
--- NOTE | 2021-08-15 12:03 | ONCRAD TMN_ITS ---
Radiation Oncology Weekly Treatment Management Patient: Vida Londono MR#: [id number] : 1955> Attending Physician: Dr. Chris Beck Date of Service: 08/15/2021 Referring Physician(s) : Izaiah Varela M.D. Diagnosis: C61 - Malignant neoplasm of prostate, Diagnosed 02/09/2021 (Active) Stage IIC, T1c, N0, M0, P<10, G4 Radiotherapy to date: Course: Prostate 2021, Treatment Site: Prostate Ca - High Risk, Ref. ID: [id number], Energy: 15X, Dose/Fx (cGy): 200, #Fx: , Dose Correction (cGy): 0, Total Dose (cGy): 3,000, Start Date: 07/25/2021, Elapsed Days: 18 Reason for visit: The patient is being seen today as part of their regularly scheduled weekly on treatment visits to assess for acute toxicities from radiotherapy. Review of Systems: Mr. Vera has completed 15 treatments. He was having tremendous difficulty with urinary frequency last week. It seems a big part of the problem was inability to sleep. He is now taking both tramadol and Lunesta at bedtime. This combination has helped him significantly and now he is having nocturia x2 or 3. He has no dysuria, pyuria, or hematuria. In terms of bowels, he has had major problems with constipation. 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 He has tried Dulcolax without success. I discussed a regimen of milk of magnesia every 3 hours until a bowel movement is produced. Before discussing it, I made sure he does not have any chronic inflammatory bowel disease. Vital Signs: Performed on 08/15/2021 8:50 AM BMI - 44.193 kg/m2 (high), Height - 74 in, Weight - 344.2 lbs, Temperature - 96.7 f, Pulse - 68 /min, Respiration - 20 /min, O2 Sat - 100 %, Pain - 0, Fatigue - 0 and BP - 127/ 74 mm(hg). Physical Exam: He does not have any skin irritation from radiation. He has a bruise on his abdomen from a Zoladex shot. Alert, oriented, no distress. Imaging: Radiation therapy imaging related to accurate target localization (i.e. KV, MV and CBCT) was reviewed. Appropriate changes, if any, were made to ensure treatment accuracy. Plan: Continue RT per plan. Bowel regimen recommendation above. No change in his bladder regimen, which includes oxybutynin and Flomax. Signed by: Dr. Chris Beck 08/15/2021 12:01:28 PM
--- NOTE | 2021-08-23 09:16 | ONCRAD TMN_ITS ---
Radiation Oncology Treatment Management Note Patient Name: Juan Antonio Mcpherson Date of : 1955 Date of Service: 08/23/2021 Attending Physician: Izaiah Robbins M.D. Juan Antonio Mcpherson is a 66 year old white male diagnosed with a clinical stage IIC (T2aN0) high-risk prostate cancer. He initially was identified to have an elevated PSA level (6.2 ng/mL) in August 2020. An MRI of the prostate ordered on December 13, 2020 reported a focal area of decreased T2 signal in the left paramidline of the posterior peripheral zone measuring 1.4 cm. An MR fusion biopsy of the prostate gland performed on February 09, 2021 identified a 33g prostate gland. The biopsy diagnosed an adenocarcinoma with a Trixie???s Score of 4+4 = 8 (Grade Group 4) involving two cores from the left lateral apex, a [place]rixie???s Score of 3+4 = 7 (Grade Group 2) encompassing four cores from the left mid peripheral zone, and a [place]???s score of 6 (Grade Group 1) within 30% of the sample from the right lateral base. A nuclear bone scintigraphy scan completed on March 17, 2021 demonstrated an area of moderate uptake in the sternum and slight activity within the fourth and ninth vertebral bodies. An abdominopelvic CT scan did not demonstrate metastatic disease. A GnRH agonist (Zoladex) was administered May 27, 2021. The patient has received 42 Gy of a prescribed 46 Simms to the prostate and regional lymph nodes with an intensity modulated radiotherapy plan utilizing a step and shoot treatment technique. An additional 32 Simms will be delivered to the prostate gland subsequent to the initial aranda. He has received neoadjuvant hormonal therapy. Upon review of systems, he described intermittent urinary incontinence. On physical examination, the patient weighed 342 lbs. His temperature was 96 ???F and the blood pressure was 130/70 mmHg. The pulse was 73 bpm and his respiratory rate was 18. There was no erythema within the treatment aranda. Continue pelvic radiotherapy as planned. He has been prescribed oxybutynin for over-active bladder. Signed by: Dr. Izaiah Robbins 08/23/2021 9:14:48 AM
== END 2021-08-23 23:59 | disposition home or self-care (01) ==
PROVIDERS: PCP Nurse Practitioner Family; Visit Provider Radiology Radiation Oncology
DX: Z51.0 Encounter for antineoplastic radiation therapy (principal); C61 Malignant neoplasm of prostate; Z79.818 Long term (current) use of other agents affecting estrogen receptors and estrogen levels
CPT/HCPCS: 77014; 77336; 77385; 81003

== ENCOUNTER 2021-08-29 09:02 | Outpatient (CLI) | payer BC, SELFPAY ==
--- NOTE | 2021-08-29 09:21 | XRR_ITS ---
PROCEDURE INFORMATION: Exam: XR Abdomen Exam date and time: 08/29/2021 9:27 AM Age: 66 years old Clinical indication: Abdominal pain; Patient HX: History--constipation for 6 months TECHNIQUE: Imaging protocol: XR of the abdomen. Views: 2 Views. Upright and supine views. COMPARISON: CT abdomen pelvis w con* [id number] 03/17/2021 10:47 AM FINDINGS: Gastrointestinal tract: Indeterminate large air-filled region in the right abdomen measuring up to approximately 15 cm. Intraperitoneal space: Surgical clips in the right lower abdomen noted. Bones/joints: Unremarkable. Soft tissues: Limited evaluation due to patient body habitus. XR/XR abdomen min 2V [id number] IMPRESSION: Indeterminate large air-filled region in the right abdomen measuring up to approximately 15 cm, possibly an abnormally dilated bowel loops, difficult to exclude free air. Recommend CT of the abdomen and pelvis for further evaluation.
[2021-09-01 09:39] LABS: Prostate Specific Antigen 0.384 ng/mL (0-4)
== END 2021-08-29 09:03 | disposition home or self-care (01) ==
PROVIDERS: Internal Medicine Hematology & Oncology; PCP Nurse Practitioner Family; Visit Provider Family Medicine
DX: K59.00 Constipation, unspecified (principal); R93.3 Abnormal findings on diagnostic imaging of other parts of digestive tract
CPT/HCPCS: 74019

== ENCOUNTER 2021-08-30 12:06 | Emergency (ER) | payer BC, SELFPAY ==
[2021-08-30 12:19] VITALS: BP 136/91; PULSE 82; RESP 16; TEMP 37; O2SAT 98; BMI 43.6
[2021-08-30 12:53] VITALS: PULSE 68; O2SAT 99
[2021-08-30 13:23] VITALS: PULSE 67; O2SAT 100
--- NOTE | 2021-08-30 13:34 | W.ED.GENADLT ---
"HPI - General Adult General: Chief complaint: Recheck/Abnormal Lab/Rx Stated complaint: abnormal xray results, constipation Time Seen by Provider: 08/30/21 13:30 History of Present Illness: Patient is a 66-year-old male with history of chronic constipation who presents the emergency room for concerns of abnormal x-ray. Patient underwent routine x-ray for abdominal fullness and discomfort in setting constipation was found to have possible questionable free air. Patient was then told to come to the emergency room. On arrival today, patient denies any fever or chills, worsening abdominal pain since the x-ray, diarrhea, melena/hematochezia. No other focal complaints including chest pain, shortness of palpitation lightheadedness, cough, runny nose, or sore throat Onset: 2 days of abnormal xr Duration:ongoing Location:home Severity:moderate Associated symptoms: Deny chest pain, dyspnea, nausea, rash, palpitations or vomiting Review of Systems Const: Denies: fever(s) or chills Eyes: Denies: change in vision ENMT: Denies: mouth pain Card: Denies: chest pain or palpitations Resp: Denies: dyspnea or non-productive cough GI: Reports: other (+constipation); Denies: abdominal pain, nausea, vomiting or diarrhea : Denies: dysuria Musc: Denies: extremity pain Skin/Breast: Denies: rash or new lesions Neuro: Denies: weakness in extremities Psych: Reports: other (Normal mood) Patrick/Lymph: Denies: easy bruising PFSH ED PFSH: Medical History (Updated 09/02/21 @ 09:13 by Jb Agosto MD) Atrial fibrillation BPH (benign prostatic hyperplasia) Gout H/O non-Hodgkin's lymphoma Hyperlipemia Hyperlipidemia Hypertension Pacemaker Prostate cancer Stasis dermatitis of both legs Surgical History H/O adenoidectomy H/O colonoscopy (07/06/20) poor prep, cecal polyp , repeat in 5 years H/O detached retina repair H/O heart artery stent H/O lymph node biopsy History of appendectomy History of tonsillectomy Status post cardiac pacemaker procedure Family History Father Cancer lung Lung disease Mother Cancer skin cancer Dementia Grandfather Stroke Denies family history of Diabetes CAD (coronary artery disease) Clotting disorder Chronic kidney disease (CKD) Suicide Anesthesia complication Bleeding disorder Social History Smoking and tobacco status: never smoked Alcohol intake: never Household members: spouse Marital status: Current occupational status: employed History of recent travel: No Physical Exam Const: COMMON NORMALS: alert HENMT: COMMON NORMALS: atraumatic HEAD & SCALP: atraumatic MOUTH: moist mucous membranes not abnormal Eye: COMMON NORMALS: EOMs intact bilaterally and conjunctivae normal CONJUNCTIVA: Yes conjunctivae normal Neck/C-Spine: COMMON NORMALS: full ROM and supple Resp: COMMON NORMALS: normal respiratory effort and clear to auscultation bilaterally AUSCULTATION: clear to auscultation bilaterally Cardio: COMMON NORMALS: regular rate RATE: regular rate GI: COMMON NORMALS: Soft to palpation and non-tender PALPATION: Yes Soft to palpation OTHER: No focal TTP. NO guarding rebound, guarding, rigidity. No CVA tenderness to percussion. Neg Spencer/Neg McBurney's point tenderness, no suprabupic tenderness to palpation. Extremity: COMMON NORMALS: full ROM Neuro: SENSORIUM/ORIENTATION: Yes alert MOTOR EXAM: No Abnormal motor strength present and Other motor observations present (no focal motor deficits) Psych: COMMON NORMALS: speech normal SPEECH: Yes normal speech MOOD & AFFECT: Yes euthymic mood Course Vital Signs: Vital signs: Vital Signs Temperature 98.6 F 08/30/21 12:19 Pulse Rate 68 08/30/21 16:24 Respiratory Rate 16 08/30/21 12:19 Blood Pressure 123/73 08/30/21 16:24 Pulse Oximetry 98 08/30/21 16:24 [facility] - General Adult Medical Decision Making 66-year-old male with history of constipation presenting to emergency room with concerns for abnormal x-ray. On physical exam, patient has no guarding rebound tenderness. Rest of exam within normal limit. Patient is hemodynamically stable. Repeat CT scan did not show any signs of free air. Patient was found to have significant constipation. Rx miralax, docusate, and senna for constipation Disposition: Discharge. Patient counseled regarding diagnostic impression, treatment plan. Patient given ED strict return precautions to return for continuation, worsening, or development of new symptoms. Instructed to f/u w/ PCP regarding symptoms today. Patient verbalized understanding. Lab Data : 08/30/21 13:28 08/30/21 13:28 Radiology Impressions Abdomen/Pelvis CT 08/30/21 13:43 IMPRESSION: 1. No free air. 2. No acute findings in the abdomen or pelvis. 3. Normal caliber abdominal aorta. 4. Prior appendectomy. 5. Sigmoid diverticulosis. No evidence of acute diverticulitis. Laboratory Results WBC 5.0 10^3/uL (4.0-10.0) 08/30/21 13:28 RBC 4.13 10^6/uL (4.1-5.3) 08/30/21 13:28 Hgb 13.6 g/dL (11.7-16.6) 08/30/21 13:28 Hct 41.2 % (42.0-52.0) L 08/30/21 13:28 MCV 99.8 fl (80-94) H 08/30/21 13:28 MCH 32.9 pg (28.0-34.0) 08/30/21 13:28 MCHC 33.0 g/dL (30.0-36.0) 08/30/21 13:28 RDW 13.9 % (12.1-15.1) 08/30/21 13:28 Plt Count 157 10^3/cmm (130-400) 08/30/21 13:28 MPV 10.6 fL (7.4-10.4) H 08/30/21 13:28 Neut % (Auto) 74.8 % 08/30/21 13:28 Lymph % (Auto) 11.3 % 08/30/21 13:28 [place] % (Auto) 10.3 % 08/30/21 13:28 Eos % (Auto) 2.8 % 08/30/21 13:28 Baso % (Auto) 0.4 % 08/30/21 13:28 Neut # (Auto) 3.70 10^3/uL (1.8-7.7) 08/30/21 13:28 Lymph # (Auto) 0.6 10^3/uL (0.8-4.8) L 08/30/21 13:28 [place] # (Auto) 0.5 10^3/uL (0.2-0.9) 08/30/21 13:28 Eos # (Auto) 0.1 10^3/uL (0.0-0.8) 08/30/21 13:28 Baso # (Auto) 0.0 10^3/uL (0.0-0.1) 08/30/21 13:28 Nucleated RBC % (auto) 0 % 08/30/21 13:28 Nucleated RBCs # 0.0 /100WBC 08/30/21 13:28 Sodium 140 mmol/L (136-145) 08/30/21 13:28 Potassium 4.5 mmol/L (3.5-5.1) 08/30/21 13:28 Chloride 103 mmol/L (98-107) 08/30/21 13:28 Carbon Dioxide 27 mmol/L (22-29) 08/30/21 13:28 Anion Gap 14.5 (5-19) 08/30/21 13:28 BUN 13 mg/dL (8-23) 08/30/21 13:28 Creatinine 1.0 mg/dL (0.7-1.2) 08/30/21 13:28 GFR Calculation 75.2 mL/min (90-130) L 08/30/21 13:28 Glucose 112 mg/dL (65-115) 08/30/21 13:28 Calculated Osmolality 291 mOsm/kg (285-295) 08/30/21 13:28 Lactic Acid 0.9 mmol/L (0.5-2.2) 08/30/21 13:28 Calcium 9.4 mg/dL (8.5-10.5) 08/30/21 13:28 Total Bilirubin 0.7 mg/dL (0.15-1.2) 08/30/21 13:28 AST 19 U/L (0-40) 08/30/21 13:28 ALT 14 U/L (0-41) 08/30/21 13:28 Alkaline Phosphatase 41 IU/L (40-130) 08/30/21 13:28 Total Protein 6.1 g/dL (6.6-8.7) L 08/30/21 13:28 Albumin 4.3 g/dL (3.5-5.2) 08/30/21 13:28 Globulin 1.8 g/dL (1.3-4.6) 08/30/21 13:28 Lipase 48 U/L (13-60) 08/30/21 13:28 Urine Color Yellow (Yellow) 08/30/21 15:09 Urine Appearance Clear (CLEAR) 08/30/21 15:09 Urine pH 6 (5-7) 08/30/21 15:09 Ur Specific [place] 1.010 (1.005-1.030) 08/30/21 15:09 Urine Protein Neg (Negative) 08/30/21 15:09 Urine Glucose (UA) Norm (Normal) 08/30/21 15:09 Urine Ketones Negative (Negative) 08/30/21 15:09 Urine Blood Neg (Negative) 08/30/21 15:09 Urine Nitrate Negative (Negative) 08/30/21 15:09 Urine Bilirubin Neg (Negative) 08/30/21 15:09 Urine Urobilinogen Norm mg/dL (Negative) 08/30/21 15:09 Ur Leukocyte Esterase Negative (Negative) 08/30/21 15:09 Imaging Data Other Imaging: Radiologist's impression: Launch?Image [employer] [facility] | mentor | [place] [address] CT Scan Report Signed Patient: Juan Antonio Mcpherson Unit #: [id number] : 1955 Age/Sex: 66 / M ADM Date: 08/30/21 Loc: ER Room/Bed: Attending Dr: Ordering Provider/Ordering MD: Alyson Lazo MD Date of Service: 08/30/21 Procedure(s): CT abdomen pelvis con [id number] Accession Number(s): [id number] Report Number: [id number] WS: [id number] CT ABDOMEN PELVIS TECHNIQUE: Noncontrast CT of the abdomen and pelvis with coronal and sagittal reformatted images. CLINICAL INFORMATION: possible free air? COMPARISON: Radiograph August 29, 2021 DLP: 1907.[address] [facility] use at least one of these dose optimization techniques: automated exposure control; mA and/or kV adjustment per patient size (includes targeted exams where dose is matched to clinical indication); or iterative reconstruction. FINDINGS: No evidence of free air or bowel perforation. Evidence of prior appendectomy. Lung bases are well aerated. Noncontrast liver is normal. Normal GE junction. Noncontrast spleen is normal. Mild fatty atrophy of the pancreas. Lung bases are well aerated. Normal gallbladder. Adrenal glands are normal. No hydronephrosis in either kidney. Normal caliber abdominal aorta. Mild aortic calcification. Sigmoid diverticulosis. No evidence of acute diverticulitis. No evidence of high-grade small or large bowel obstruction. No free fluid in the abdomen or pelvis. Disc space narrowing worse at L3-L4 L4-L5 and L5-S1. CT/CT abdomen pelvis wo con [id number] IMPRESSION: ? 1.? No free air. 2.? No acute findings in the abdomen or pelvis. 3.? Normal caliber abdominal aorta. 4.? Prior appendectomy. 5.? Sigmoid diverticulosis. No evidence of acute diverticulitis. ? Dictated By: Travis Head MD Signed By: Travis Head MD Signed Date/Time: 08/30/211526 DD/ 20 Discharge Plan Discharge Patient Disposition: Home Clinical Impression: Constipation, Abdominal distention Condition: Stable Prescriptions: New docusate sodium 100 mg capsule 100 mg PO DAILY 30 Days Qty: 30 0RF senna 8.6 mg capsule 8.6 mg PO DAILY 30 Days Qty: 30 0RF Miralax 17 gram/dose powder 8.5 g PO DAILY PRN (Reason: constipation) 28 Days Qty: 238 0RF No Action tamsulosin 0.4 mg capsule 0.4 mg PO DAILY 0RF oxybutynin chloride 5 mg tablet extended release 24hr 5 mg PO DAILY 0RF levocetirizine [Xyzal] 5 mg tablet 5 mg PO DAILY 0RF multivitamin Tablet 1 tab PO DAILY 0RF fenofibrate nanocrystallized 145 mg tablet 145 mg PO DAILY 0RF rosuvastatin 40 mg tablet 40 mg PO DAILY Qty: 90 3RF Eliquis 5 mg tablet 5 mg PO BID Qty: 60 0RF Rx Instructions: Make follow-up for further refills triamterene-hydrochlorothiazid 37.5-25 mg tablet 2 tab PO DAILY 0RF prochlorperazine maleate [Compazine] 10 mg Tablet 10 mg PO Q4H PRN (Reason: Mild Nausea) Qty: 30 3RF lorazepam 1 mg Tablet 0.5 - 1 mg PO Q6H PRN (Reason: Severe Nausea) Qty: 30 3RF metoprolol succinate 100 mg tablet extended release 24 hr 50 mg PO BID 0RF allopurinol 300 mg Tablet 300 mg PO DAILY 0RF venlafaxine 75 mg capsule,extended release 24hr 75 mg PO DAILY 0RF zolpidem 12.5 mg tablet,ext release multiphase 12.5 mg PO BEDTIME 0RF Discharge Orders: Discharge ED (Routine); Ordered 08/30/21 Ordered By: Alyson Lazo Referrals: Irina Valdovinos FNP [Primary Care Provider] - Discharge Diet: Advance as tolerated Discharge Activity: Increase activity as tolerated Patient Instructions: Constipation (ED), High Fiber Diet (ED) Activity Restrictions/Additional Instructions: Please take your MiraLAX, docusate and senna for your constipation. You need to be taking MiraLAX for 4 weeks. Come back if you have any new or concernin issues. Coding Level of Care Code ED Commissary Assistant for [facility]ra Fwd Exam Comprehensive"
[2021-08-30 13:35] LABS: Basophils % 0.4 %; Eosinophils # 0.1 10^3/uL (0.0-0.8); Eosinophils % 2.8 %; Hematocrit 41.2 % (42.0-52.0); Hemoglobin 13.6 g/dL (11.7-16.6); Lymphocytes # 0.6 10^3/uL (0.8-4.8); Lymphocytes % 11.3 %; Mean Corpuscular Hemoglobin 32.9 pg (28.0-34.0); Mean Corpuscular Volume 99.8 fl (80-94); Mean Platelet Volume 10.6 fL (7.4-10.4); Monocytes # 0.5 10^3/uL (0.2-0.9); Monocytes % 10.3 %; Neutrophils % 74.8 %; Nucleated Red Blood Cells % 0 %; Platelet Count 157 10^3/cmm (130-400); Red Blood Count 4.13 10^6/uL (4.1-5.3); Red Cell Distribution Width 13.9 % (12.1-15.1)
--- NOTE | 2021-08-30 13:43 | CT_ITS ---
WS: [id number] CT ABDOMEN PELVIS TECHNIQUE: Noncontrast CT of the abdomen and pelvis with coronal and sagittal reformatted images. CLINICAL INFORMATION: possible free air? COMPARISON: Radiograph August 29, 2021 DLP: 1907.[address] scans at [facility] use at least one of these dose optimization techniques: automated e xposure control; mA and/or kV adjustment per patient size (includes targeted exams where dose is matc hed to clinical indication); or iterative reconstruction. FINDINGS: No evidence of free air or bowel perforation. Evidence of prior appendectomy. Lung bases are well aer ated. Noncontrast liver is normal. Normal GE junction. Noncontrast spleen is normal. Mild fatty atrop hy of the pancreas. Lung bases are well aerated. Normal gallbladder. Adrenal glands are normal. No hy dronephrosis in either kidney. Normal caliber abdominal aorta. Mild aortic calcification. Sigmoid diverticulosis. No evidence of acu te diverticulitis. No evidence of high-grade small or large bowel obstruction. No free fluid in the a bdomen or pelvis. Disc space narrowing worse at L3-L4 L4-L5 and L5-S1. CT/CT abdomen pelvis wo con [id number] IMPRESSION: 1. No free air. 2. No acute findings in the abdomen or pelvis. 3. Normal caliber abdominal aorta. 4. Prior appendectomy. 5. Sigmoid diverticulosis. No evidence of acute diverticulitis.
[2021-08-30 13:52] LABS: Lactic Sepsis W/Reflex 0.9 mmol/L (0.5-2.2)
[2021-08-30 14:15] LABS: Alanine Aminotransferase 14 U/L (0-41); Albumin Level 4.3 g/dL (3.5-5.2); Alkaline Phosphatase 41 IU/L (40-130); Aspartate Amino Transferase 19 U/L (0-40); Blood Urea Nitrogen 13 mg/dL (8-23); Calcium 9.4 mg/dL (8.5-10.5); Carbon Dioxide 27 mmol/L (22-29); Chloride 103 mmol/L (98-107); Globulin 1.8 g/dL (1.3-4.6); Glomerular Filtration Rate 75.2 mL/min (90-130); Glucose 112 mg/dL (65-115); Lipase 48 U/L (13-60); Osmolality Calculated 291 mOsm/kg (285-295); Sodium 140 mmol/L (136-145); Total Bilirubin 0.7 mg/dL (0.15-1.2); Total Protein 6.1 g/dL (6.6-8.7)
[2021-08-30 14:30] VITALS: PULSE 65; O2SAT 98
[2021-08-30 14:35] LABS: Anion Gap 14.5 (5-19); Potassium 4.5 mmol/L (3.5-5.1)
[2021-08-30 15:23] LABS: Add Urine Microscopic? NO; Bilirubin Urine Neg (Negative); Blood Urine Neg (Negative); Charge for UA Resulting for Rev; Glucose Urine UA Norm (Normal); Ketones Urine Negative (Negative); Leukocyte Esterase Urine Negative (Negative); Nitrate Urine Negative (Negative); Protein Urine Neg (Negative); Urine Appearance Clear (CLEAR); Urine Color Yellow (Yellow); Urobilinogen Urine Norm (Negative); pH Urine 6 (5-7)
[2021-08-30 15:30] VITALS: PULSE 66; O2SAT 100
[2021-08-30 16:24] VITALS: BP 123/73; PULSE 68; O2SAT 98
== END 2021-08-30 16:15 | disposition home or self-care (01) ==
PROVIDERS: Physician Assistant; Emergency Provider Emergency Medicine; PCP Nurse Practitioner Family
DX: K59.00 Constipation, unspecified (principal); R14.0 Abdominal distension (gaseous)
CPT/HCPCS: 74176; 80053; 81003; 83605; 83690; 85025; 99283

== ENCOUNTER → 2021-09-07 07:46 | Outpatient (BNVA) | payer BC, SELFPAY | PROVIDERS: PCP Nurse Practitioner Family; Referring Provider Nurse Practitioner Family; Visit Provider Specialist | DX: M25.561 Pain in right knee (principal); M25.562 Pain in left knee | CPT/HCPCS: 73560; 73565 ==

== ENCOUNTER 2021-09-12 06:00 | Outpatient (RCR) | payer BC, SELFPAY | END 2021-09-22 23:59 | disposition home or self-care (01) | LOC: SPT 06:00 | PROVIDERS: PCP Nurse Practitioner Family; Referring Provider Specialist; Visit Provider Specialist | DX: M25.561 Pain in right knee (principal); M25.562 Pain in left knee | CPT/HCPCS: 97110; 97161 ==

== ENCOUNTER 2021-09-16 08:20 | Oncology outpatient (recurring) (ONCR) | payer BC, SELFPAY ==
--- NOTE | 2021-08-29 08:56 | ONCRAD TMN_ITS ---
Radiation Oncology Treatment Management Note Patient Name: Juan Antonio Mcpherson Date of : 1955 Date of Service: 08/29/2021 Attending Physician: Izaiah Robbins M.D. Juan Antonio Mcpherson is a 66 year old white male diagnosed with a clinical stage IIC (T2aN0) high-risk prostate cancer. He initially was identified to have an elevated PSA level (6.2 ng/mL) in August 2020. An MRI of the prostate ordered on December 13, 2020 reported a focal area of decreased T2 signal in the left paramidline of the posterior peripheral zone measuring 1.4 cm. An MR fusion biopsy of the prostate gland performed on February 09, 2021 identified a 33g prostate gland. The biopsy diagnosed an adenocarcinoma with a [place]???s Score of 4+4 = 8 (Grade Group 4) involving two cores from the left lateral apex, a [place]???s Score of 3+4 = 7 (Grade Group 2) encompassing four cores from the left mid peripheral zone, and a [place]???s score of 6 (Grade Group 1) within 30% of the sample from the right lateral base. A nuclear bone scintigraphy scan completed on March 17, 2021 demonstrated an area of moderate uptake in the sternum and slight activity within the fourth and ninth vertebral bodies. An abdominopelvic CT scan did not demonstrate metastatic disease. A GnRH agonist (Zoladex) was administered May 27, 2021. The patient has received 50 Gy of a prescribed 78 Simms to the prostate with an intensity modulated radiotherapy plan utilizing a step and shoot treatment technique. He has received neoadjuvant hormonal therapy. Upon review of systems, he did not describe any changes in his symptoms. On physical examination, the patient weighed 339 lbs. His temperature was 96.4 ???F and the blood pressure was 141/79 mmHg. The pulse was 89 bpm and his respiratory rate was 18. There was no erythema within the treatment aranda. Continue pelvic radiotherapy as prescribed. He will receive his next Zoladex injection this week. Signed by: Dr. Izaiah Robbins 08/29/2021 8:55:39 AM
[2021-09-02] MEDS: lidocaine 1% INJ 20 mL SUBCUT (09:24)
[2021-09-02] MEDS: goserelin acetate 10.8 mg Implant SUBCUT (09:40)
--- NOTE | 2021-09-05 08:58 | ONCRAD TMN_ITS ---
Radiation Oncology Treatment Management Note Patient Name: Juan Antonio Mcpherson Date of : 1955 Date of Service: 09/05/2021 Attending Physician: Izaiah Robbins M.D. Juan Antonio Mcpherson is a 66 year old white male diagnosed with a clinical stage IIC (T2aN0) high-risk prostate cancer. He initially was identified to have an elevated PSA level (6.2 ng/mL) in August 2020. An MRI of the prostate ordered on December 13, 2020 reported a focal area of decreased T2 signal in the left paramidline of the posterior peripheral zone measuring 1.4 cm. An MR fusion biopsy of the prostate gland performed on February 09, 2021 identified a 33g prostate gland. The biopsy diagnosed an adenocarcinoma with a Trixie???s Score of 4+4 = 8 (Grade Group 4) involving two cores from the left lateral apex, a Trixie???s Score of 3+4 = 7 (Grade Group 2) encompassing four cores from the left mid peripheral zone, and a [place]???s score of 6 (Grade Group 1) within 30% of the sample from the right lateral base. A nuclear bone scintigraphy scan completed on March 17, 2021 demonstrated an area of moderate uptake in the sternum and slight activity within the fourth and ninth vertebral bodies. An abdominopelvic CT scan did not demonstrate metastatic disease. A GnRH agonist (Zoladex) was administered May 27, 2021. The patient has received 60 Gy of a prescribed 78 Simms to the prostate with an intensity modulated radiotherapy plan utilizing a step and shoot treatment technique. He has received neoadjuvant hormonal therapy. Upon review of systems, he did not describe any worsening urinary symptoms. On physical examination, the patient weighed 334 lbs. His temperature was 97.1 ???F and the blood pressure was 142/77 mmHg. The pulse was 95 bpm and his respiratory rate was 17. There was no erythema within the treatment aranda. Continue pelvic radiotherapy as planned. Signed by: Dr. Izaiah Robbins 09/05/2021 8:56:35 AM
[2021-09-09 08:45] LABS: Add Urine Microscopic? NO; Charge for UA Resulting for Rev
[2021-09-09 09:07] LABS: Bilirubin Urine Neg (Negative); Blood Urine Neg (Negative); Glucose Urine UA Norm (Normal); Ketones Urine Negative (Negative); Leukocyte Esterase Urine Negative (Negative); Nitrate Urine Negative (Negative); Protein Urine Neg (Negative); Urine Appearance Clear (CLEAR); Urine Color Yellow (Yellow); Urobilinogen Urine Norm (Negative); pH Urine 5 (5-7)
--- NOTE | 2021-09-12 09:09 | ONCRAD TMN_ITS ---
Radiation Oncology Treatment Management Note Patient Name: Juan Antonio Mcpherson Date of : 1955 Date of Service: 09/12/2021 Attending Physician: Izaiah Robbins M.D. Juan Antonio Mcpherson is a 66 year old white male diagnosed with a clinical stage IIC (T2aN0) high-risk prostate cancer. He initially was identified to have an elevated PSA level (6.2 ng/mL) in August 2020. An MRI of the prostate ordered on December 13, 2020 reported a focal area of decreased T2 signal in the left paramidline of the posterior peripheral zone measuring 1.4 cm. An MR fusion biopsy of the prostate gland performed on February 09, 2021 identified a 33g prostate gland. The biopsy diagnosed an adenocarcinoma with a Trixie???s Score of 4+4 = 8 (Grade Group 4) involving two cores from the left lateral apex, a Trixie???s Score of 3+4 = 7 (Grade Group 2) encompassing four cores from the left mid peripheral zone, and a [place]???s score of 6 (Grade Group 1) within 30% of the sample from the right lateral base. A nuclear bone scintigraphy scan completed on March 17, 2021 demonstrated an area of moderate uptake in the sternum and slight activity within the fourth and ninth vertebral bodies. An abdominopelvic CT scan did not demonstrate metastatic disease. A GnRH agonist (Zoladex) was administered May 27, 2021. The patient has received 70 Gy of a prescribed 78 Simms to the prostate with an intensity modulated radiotherapy plan utilizing a step and shoot treatment technique. He has received neoadjuvant hormonal therapy. Upon review of systems, he described diarrhea and worsening LUTS. On physical examination, the patient weighed 331 lbs. His temperature was 97 ???F and the blood pressure was 137/83 mmHg. The pulse was 71 bpm and his respiratory rate was 19. There was no erythema within the treatment aranda. Continue pelvic radiotherapy as prescribed. I recommended Imodium for diarrhea. He has failed medications for the urinary symptoms. Signed by: Dr. Izaiah Robbins 09/12/2021 9:08:52 AM
--- NOTE | 2021-09-16 08:28 | N.ONRD TS_ITS ---
Radiation OncologyTreatment Summary Patient Name: Juan Antonio Mcpherson Date of : 1955 Date of Service: 09/16/2021 Attending Physician: Izaiah Robbins M.D. Juan Antonio Mcpherson has completed definitive prostate radiotherapy for the management of a clinical stage IIC (T2aN0) high-risk prostate cancer. He initially was identified to have an elevated PSA level (6.2 ng/mL) in August 2020. An MRI of the prostate ordered on December 13, 2020 reported a focal area of decreased T2 signal in the left paramidline of the posterior peripheral zone measuring 1.4 cm. An MR fusion biopsy of the prostate gland performed on February 09, 2021 identified a 33g prostate gland. The biopsy diagnosed an adenocarcinoma with a Bethesda???s Score of 4+4 = 8 (Grade Group 4) involving two cores from the left lateral apex, a Bethes[place]???s Score of 3+4 = 7 (Grade Group 2) encompassing four cores from the left mid peripheral zone, and a Trixie???s score of 6 (Grade Group 1) within 30% of the sample from the right lateral base. A nuclear bone scintigraphy scan completed on March 17, 2021 demonstrated an area of moderate uptake in the sternum and slight activity within the fourth and ninth vertebral bodies. An abdominopelvic CT scan did not demonstrate metastatic disease. Two cycles of a GnRH agonist (Zoladex) was administered May 27, 2021 and September 02, 2021. Pelvic radiation therapy was delivered between the dates of July 25, 2021 through September 16, 2021. A prescribed dose of 78 Gy was delivered in 39 fractions encompassing 54 elapsed days. The prostate gland, seminal vesicles, and regional lymph node stations were treated utilizing an intensity modulated radiotherapy plan with a step and shoot treatment technique. The plan arranged nine gantry angles (0???, 40???, 80???, 120???, 160???, 200???, 240???, 280???, and 320???) replicating an arc. The collimator rotation was 0???. The field sizes measured between 16.5 cm x 19.3 cm to 20.4 cm x 19.3 cm. The SSDs measured a minimum of 73.5 cm to a maximum of 85.1 cm. The ports delivered 198 MU, 194 MU, 176 MU, 194 MU, 175 MU, 194 MU, 180 MU, 179 MU, and 212 MU corresponding to the gantry angles described. The initial aranda began on July 25 and continued through August 25, 2021. A prescribed dose of 46 Simms was administered 23 fractions over 33 elapsed days. The prostate gland and seminal vesicles were subsequently treated incorporating and intensity modulated radiotherapy plan with a step and shoot treatment technique. The plan designed eight gantry angles (0???, 40???, 80???, 120???, 200???, 240???, 280???, and 320???) replicating an arc. The collimator rotation was 0???. The field sizes spanned between 8 cm x 10 cm to 11 cm x 10 cm. The SSDs measured 74.4 cm to 86.2 cm. The ports delivered 161 MU, 187 MU, 130 MU, 119 MU, 117 MU, 191 MU, 134 MU, and 142 MU corresponding to the gantry angles described. The reduced ports started on August 26, 2021 and concluded on September 16, 2021. An additional 32 Gy was allocated in 16 fractions over 23 elapsed days. All treatments were performed with the [employer] linear accelerator and an isocentric technique. High energy photons were prescribed. The dose was calculated by Anisotropic Analytic Algorithm with the plan normalized to deliver 100% of the prescription dose to 98% of the planning target volume. Signed by: Dr. Izaiah Robbins 09/16/2021 8:26:58 AM
== END 2021-09-22 23:59 | disposition home or self-care (01) ==
PROVIDERS: PCP Nurse Practitioner Family; Visit Provider Radiology Radiation Oncology
DX: Z51.0 Encounter for antineoplastic radiation therapy (principal); C61 Malignant neoplasm of prostate
CPT/HCPCS: 77014; 77300; 77336; 77338; 77385; 77427; 81003; 84153; 96372; 96402; J9202

== ENCOUNTER 2021-09-23 06:00 | Outpatient (RCR) | payer BC, SELFPAY | END 2021-10-23 23:59 | disposition home or self-care (01) | LOC: SPT 06:00 | PROVIDERS: PCP Nurse Practitioner Family; Referring Provider Specialist; Visit Provider Specialist | DX: M25.562 Pain in left knee (principal); M25.561 Pain in right knee | CPT/HCPCS: 97110 ==

== ENCOUNTER 2021-10-03 15:59 | Outpatient (CLI) | payer BC, SELFPAY ==
[2021-10-03 16:39] LABS: Basophils % 0.6 %; Eosinophils # 0.2 10^3/uL (0.0-0.8); Eosinophils % 4.6 %; Hematocrit 35.9 % (42.0-52.0); Hemoglobin 12.1 g/dL (11.7-16.6); Lymphocytes # 0.5 10^3/uL (0.8-4.8); Lymphocytes % 9.9 %; Mean Corpuscular HGB Conc 33.7 g/dL (30.0-36.0); Mean Corpuscular Hemoglobin 32.6 pg (28.0-34.0); Mean Corpuscular Volume 96.8 fl (80-94); Mean Platelet Volume 11.1 fL (7.4-10.4); Monocytes # 0.4 10^3/uL (0.2-0.9); Monocytes % 8.9 %; Neutrophils # 3.74 10^3/uL (1.8-7.7); Neutrophils % 75.6 %; Nucleated Red Blood Cells % 0 %; Platelet Count 141 10^3/cmm (130-400); Red Blood Count 3.71 10^6/uL (4.1-5.3)
[2021-10-03 16:43] LABS: Erythrocyte Sedimentation Rate 6 mm/hr (0-10)
[2021-10-03 21:24] LABS: Alanine Aminotransferase 11 U/L (0-41); Alkaline Phosphatase 39 IU/L (40-130); Anion Gap 19.2 (5-19); Aspartate Amino Transferase 16 U/L (0-40); Blood Urea Nitrogen 18 mg/dL (8-23); Calcium 9.4 mg/dL (8.5-10.5); Carbon Dioxide 22 mmol/L (22-29); Chloride 106 mmol/L (98-107); Glomerular Filtration Rate 75.2 mL/min (90-130); Glucose 99 mg/dL (65-115); NT Pro B Type Natriuretic Pept 923 pg/mL (0-125); Osmolality Calculated 298 mOsm/kg (285-295); Potassium 4.2 mmol/L (3.5-5.1); Sodium 143 mmol/L (136-145); Total Bilirubin 0.5 mg/dL (0.15-1.2)
[2021-10-03 21:27] LABS: Hepatitis C Virus Antibody Non-Reactive (Nonreactive)
[2021-10-03 21:36] LABS: HIV 1 & 2 Antibody Non-Reactive (Non-Reactiv); HIV 1 & 2 Antigen Non-Reactive (Non-Reactiv)
[2021-10-03 22:00] LABS: Rapid Plasma Reagin Syphilis Nonreactive (Nonreactive)
[2021-10-04 00:43] LABS: Thyroid Stimulating Hormone 1.23 uIU/mL (0.27-4.20); Vitamin B12 317 pg/mL (232-1245)
== END 2021-10-03 16:00 | disposition home or self-care (01) ==
LOC: LAB 16:01
PROVIDERS: PCP Nurse Practitioner Family; Visit Provider Family Medicine
DX: Z11.4 Encounter for screening for human immunodeficiency virus [HIV] (principal); Z11.59 Encounter for screening for other viral diseases; R42 Dizziness and giddiness; R41.3 Other amnesia; R60.0 Localized edema
CPT/HCPCS: 36415; 80053; 82607; 83880; 84443; 85025; 85651; 86140; 86592; 86803; 87806

== ENCOUNTER 2021-10-19 09:48 | Oncology outpatient (recurring) (ONCR) | payer BC, SELFPAY ==
--- NOTE | 2021-10-19 16:36 | ONCRAD EPV_ITS ---
Radiation Oncology Established Patient Visit Patient: Vida Romano [id number] : 1955> Age: 66> Sex: Male> Dictated by: Dr. Chris Beck Date of Service: 10/19/2021 Referring Physician(s) : Izaiah Varela Diagnosis: C61 - Malignant neoplasm of prostate, Diagnosed 02/09/2021 (Active) Stage IIC, T1c, N0, M0, P<10, G4 Prostate cancer Mr. Juan Antonio Mcpherson, is a 66-year-old gentleman with a history of non-Hodgkin lymphoma involving mediastinum, diagnosed in 2006, at that time underwent R-CHOP x6 followed by consolidation radiation therapy to the chest. As per patient during his routine follow-up his PSA level showed progression and in August 2020 it was 6.2 ng/mL, MRI scan of the prostate was done on December 21, 2020 which showed focal area of decreased T2 signal in the left paramidline of posterior peripheral zone measuring 1.4 cm. An MR fusion biopsy of prostate gland performed on February 09, 2021 which confirmed adenocarcinoma with [place] score of 4+4, (group 4) involving 2 cores from left lateral apex and a [place] score of 3+4 equal to 7 involving 4 cores from left mid peripheral zone and a [place] score of 6 in 30% of the sample from right lateral base. Clinical stage (T2 a, N0, MX) stage IIc, group 4, high risk As a staging work-up, patient underwent bone scan done on March 17, 2021 which shows area of moderate uptake in the sternum and slight activity within the fourth and ninth vertebral body and CT scan of abdomen pelvis done on March 17, 2021 showed no evidence of metastatic disease. Started on 3 monthly Zoladex on May 27, 2021, being high risk will consider it for 2 to 3 years Patient denies smoking alcohol use Came for follow-up, denies any specific complaints, except not getting enough sleep at night and requesting sleeping pill, patient has history of sleep apnea, now on CPAP machine. No fever chills, no nausea or vomiting, no diarrhea or constipation, no hot flashes, no mood swings, tolerated first dose of Zoladex, well Radiotherapy to Date: Course: Prostate 2021, Treatment Site: Prostate Ca - High Risk, Ref. ID: [id number], Energy: 15X, Dose/Fx (cGy): 200, #Fx: , Dose Correction (cGy): 0, Total Dose (cGy): 4,600, Start Date: 07/25/2021, End Date: 08/25/2021, Elapsed Days: 31 Course: Prostate 2021, Treatment Site: Prostate Ca ??? Boost, Ref. ID: [id number], Energy: 15X, Dose/Fx (cGy): 200, #Fx: , Dose Correction (cGy): 0, Total Dose (cGy): 3,200, Start Date: 08/26/2021, End Date: 09/16/2021, Elapsed Days: 21 Current History: Current Medications: Eliquis, fenofibrate, hydroCHLOROthiazide, indomethacin, metoprolol Succinate ER, oxybutynin Chloride, rosuvastatin Calcium, tamsulosin HCl, traZODone HCl, zolpidem Tartrate ER. Allergies: No Known Allergies Current Complaints / Review of Systems: . Mr. Mcpherson returns for follow-up. He has numerous complaints. The story of these complaints goes back to late last year. He read an article about post COVID and said he had 7 of the 10 symptoms listed. He says he has been been tested and blood work shows that he did have COVID at some point. One of his biggest concerns is what he calls brain fog. I saw went him when he was undergoing radiation and I do not recall any complaint of that nature. I has worsened recently. 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 He also states that he has had more problems with balance recently, and he has had 2 falls. He did not blackout or lose consciousness with either fall. It was more of a balance problem. He says he experiences the balance issues the most right after he gets up in the morning and if he gets up in the middle of the night. He states that the poor balance sometimes persists until mid morning. He tells me he has an MRI of the head scheduled next week. One of his other complaints is related to his bladder. He started having some episodes of incontinence early in the year when he thought he might be experiencing post-COVID symptoms. The incontinence did not occur on a regular basis and was not that much of a problem at that time. During radiation it may have worsened some, but it has worsened further since completing radiation. He has been on oxybutynin for a couple of years for bladder problems. He is currently taking 4 oxybutynin a day. He does not he does not feel they help at all. The bladder incontinence has become associated with bowel urgency over recent weeks. There were no bowel issues at all prior to patient undergoing radiation. He has not associated the problem with his diet. He has not taken any medication such as Imodium A-D to slow his bowels. He states he has about 3 small bowel movements per day. Most the time there is significant urgency when he develops the urge for a bowel movement. In about [address] Ham. I think that will be his initial evaluation by Dr. Ham. Vital Signs: Performed on 10/19/2021 9:36 AM BMI - 44.784 kg/m2 (high), Height - 74 in, Weight - 348.8 lbs, Temperature - 96.6 f, Pulse - 73 /min, Respiration - 20 /min, O2 Sat - 99 %, Pain - 0, Fatigue - 6 and BP - 148/ 83 mm(hg)(high/). Physical Exam: General: Alert and oriented x 3. No acute distress. HEENT: Normocephalic, atraumatic. Extraocular Movements Intact: Pupils Equal, Round, Reactive to Light and Accommodation: Sclerae anicteric. Oral cavity is clear without lesions, masses or ulcers. NECK: Supple without supraclavicular or jugular lymphadenopathy. LUNGS: Clear to auscultation bilaterally without rales, rhonchi or wheeze. HEART: Regular rate and rhythm, normal S1 and S2 without murmur, gallop or rub. MUSCULOSKELETAL: No tenderness or percussion pain over the axial skeleton, scapulae or pelvis. ABDOMEN: Soft, nontender, nondistended without masses or organomegaly. Bowell sounds are present. EXTREMITIES: Mild peripheral edema is identified with stasis dermatitis.. Limited motor and sensory examination are grossly intact and symmetric bilaterally. NEUROLOGIC: Cranial nerves II ???XII are grossly intact. Normal sensation, strength 5/5 in all extremities, normal gait, no ataxia. Finger-nose exam intact. Kdki-po-bvtn exam intact. Performance Status: ECOG 2 Lab: None pending. Pathology: Primary, c61 - malignant neoplasm of prostate, Diagnosed 02/09/2021 (active) stage iic, t1c, n0, m0, p<10, g4. Imaging: See HPI Impression: In terms of the brain fog I had no specific suggestions. 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 I also discussed that he received chemotherapy for lymphoma about 15 years ago. I told him it may not be the primary cause but could possibly contribute. He is on 4 oxybutynin a day and Ambien has been added to help him sleep. I told him medications could play a role. He also has a history of atrial fibrillation and has a pacemaker. However he recently had his pacemaker checked and his heart sounded basically normal today. I doubt this is a factor in his brain fog or he has falls. Bladder symptoms may be multifactorial because I believe he told me he has been on oxybutynin about 2 years. He has gone to the higher dose recently. He does not feel he is had any benefit from the higher dose. I told him to taper down to 1 a day before he sees Dr. Ham in about 2 weeks. I discussed that Dr. Ham may want to look at his bladder and may have an alternate drug that could be helpful. Certainly radiation could be part of the problem at this time, particularly urgency and worsening incontinence. I told him that any component of the problem caused by radiation should improve over the next 3 to 4 months but that it may not completely resolve. The patient's bowel urgency and tendency to incontinence if he cannot get to the restroom very quickly is probably related to radiation. I discussed diet. I am not sure if he will try lowering the fiber in his diet or not. I also discussed low-dose Imodium A-D. I told him that he will have to experiment with the dose but that many patients improve by taking one half of an Imodium A-D tablet once or twice a week. I told him there would be no problem taking it more often. He did not say whether he would try the Imodium A-D or not. I will be here November 21 through November 25 doing SurDoc work in the radiation center. The patient is welcome to return to discuss these issues at that time. Signed by: 10/19/2021 4:34:24 PM <<Signature on File>> Time spent with patient: CPT Code: CPT Code:
== END 2021-10-23 23:59 | disposition home or self-care (01) ==
PROVIDERS: PCP Nurse Practitioner Family; Visit Provider Specialist
DX: Z51.0 Encounter for antineoplastic radiation therapy (principal); C61 Malignant neoplasm of prostate

== ENCOUNTER → 2021-11-02 13:47 | Outpatient (BNVA) | payer BC, SELFPAY | PROVIDERS: PCP Nurse Practitioner Family; Visit Provider Nurse Practitioner Family | DX: R39.9 Unspecified symptoms and signs involving the genitourinary system (principal) | CPT/HCPCS: 81003 ==

== ENCOUNTER 2021-12-05 12:25 | Oncology outpatient (recurring) (ONCR) | payer BC, SELFPAY ==
[2021-12-05 12:47] LABS: Basophils % 0.5 %; Eosinophils # 0.2 10^3/uL (0.0-0.8); Eosinophils % 2.9 %; Hematocrit 44.4 % (42.0-52.0); Hemoglobin 14.3 g/dL (11.7-16.6); Lymphocytes # 0.7 10^3/uL (0.8-4.8); Lymphocytes % 11.8 %; Mean Corpuscular HGB Conc 32.2 g/dL (30.0-36.0); Mean Corpuscular Hemoglobin 33.3 pg (28.0-34.0); Mean Corpuscular Volume 103.5 fl (80-94); Mean Platelet Volume 10.4 fL (7.4-10.4); Monocytes # 0.5 10^3/uL (0.2-0.9); Monocytes % 9.4 %; Neutrophils # 4.33 10^3/uL (1.8-7.7); Neutrophils % 75.1 %; Nucleated Red Blood Cells % 0 %; Platelet Count 150 10^3/cmm (130-400); Red Blood Count 4.29 10^6/uL (4.1-5.3); Red Cell Distribution Width 14.1 % (12.1-15.1); White Blood Count 5.8 10^3/uL (4.0-10.0)
[2021-12-05 13:13] LABS: Prostate Specific Antigen 0.122 ng/mL (0-4)
[2021-12-05 13:14] LABS: Alanine Aminotransferase 14 U/L (0-41); Albumin Level 4.1 g/dL (3.5-5.2); Alkaline Phosphatase 60 U/L (40-130); Aspartate Amino Transferase 18 U/L (0-40); Blood Urea Nitrogen 21 mg/dL (8-23); Calcium 9.5 mg/dL (8.5-10.5); Carbon Dioxide 31 mmol/L (22-29); Chloride 102 mmol/L (98-107); Globulin 2.7 g/dL (1.3-4.6); Glucose 112 mg/dL (65-115); Osmolality Calculated 298 mOsm/kg (285-295); Sodium 142 mmol/L (136-145); Testosterone Total 7.7 ng/dL (193-740); Total Bilirubin 0.6 mg/dL (0.15-1.2); Total Protein 6.8 g/dL (6.6-8.7)
[2021-12-05 13:17] LABS: Anion Gap 13.9 (5-19); Potassium 4.9 mmol/L (3.5-5.1)
[2021-12-05] MEDS: lidocaine 1% INJ 20 mL MDV (mL) SUBCUT (14:55)
[2021-12-05] MEDS: goserelin acetate 10.8 mg Implant SUBCUT (15:06)
== END 2021-12-23 23:59 | disposition home or self-care (01) ==
PROVIDERS: Nurse Practitioner; PCP Nurse Practitioner Family; Visit Provider Internal Medicine Hematology & Oncology
DX: C61 Malignant neoplasm of prostate (principal); Z79.818 Long term (current) use of other agents affecting estrogen receptors and estrogen levels
CPT/HCPCS: 80053; 84153; 84403; 85025; 96372; 96402; J9202

== ENCOUNTER 2022-01-02 11:52 | Outpatient (CLI) | payer BC, SELFPAY ==
--- NOTE | 2022-01-02 12:11 | USCV_ITS ---
Juan Antonio Mcpherson Age: 66 Gender: M : 1955 Exam Date: 01/02/2022 12:28 Ordering Phys: Kashmir Thurman MD (Andy) ([email or web address]) Technologist: Chandler Ng Exam Location: [facility] [place] Indication: HISTORY: PROCEDURES: Bilateral duplex Venous Insufficiency study of the Deep and Superficial systems was carried out according to normal protocol with the patient in supine positon for deep system and dependent position for the superficial system. FINDINGS: All deep veins demonstrated compressibility without evidence of intraluminal thrombus or increased echogenicity. Spectral analysis of Doppler signals demonstrates normal response to compression maneuvers indicating patency without obstruction. There is significant reflux in the lt leg from the mid gsaph to the gsaph below the knee. CONCLUSIONS 1. No evidence of DVT in the above-mentioned identifiable veins. 2. No significant venous reflux were noted either in the deep or in the superficial veins on the right side 3. Significant venous reflux of greater than 500 ms(ranging from 1570 to 2530 msec)were noted at the mid, distal and below-knee segments of the left greater saphenous vein. The venous segments are measuring anywhere from 0.4 to 0.7 cm in diameter. The below-knee segment was the less than 1 cm deep from the surface. No significant venous reflux in the deep veins. Dr Baylee Wolf MD [facility] (Electronically Signed) Final Date: 05 January 2022 08:00 S
== END 2022-01-02 11:53 | disposition home or self-care (01) ==
PROVIDERS: PCP Nurse Practitioner Family; Visit Provider Thoracic Surgery (Cardiothoracic Vascular Surgery)
DX: I87.2 Venous insufficiency (chronic) (peripheral) (principal)
CPT/HCPCS: 93970

== ENCOUNTER 2022-01-04 11:23 | Outpatient (CLI) | payer BC, SELFPAY ==
--- NOTE | 2022-01-04 11:45 | USCV_ITS ---
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 Normal Doppler flow velocities Resting ADAN of 1.3 on the right side and 1.4 on the left side CONCLUSIONS 1. Normal resting ADAN and arterial Doppler waveforms bilaterally. 2. No significant arterial obstruction, based on the above findings Dr Baylee Wolf MD [facility] (Electronically Signed) Final Date: 04 January 2022 17:02 S
== END 2022-01-04 11:24 | disposition home or self-care (01) ==
PROVIDERS: PCP Nurse Practitioner Family; Visit Provider Thoracic Surgery (Cardiothoracic Vascular Surgery)
DX: M79.606 Pain in leg, unspecified (principal)
CPT/HCPCS: 93925

== ENCOUNTER → 2022-02-02 10:22 | Outpatient (BNVA) | payer BC, SELFPAY | PROVIDERS: PCP Nurse Practitioner Family; Visit Provider Urology | DX: R39.9 Unspecified symptoms and signs involving the genitourinary system (principal); C61 Malignant neoplasm of prostate | CPT/HCPCS: 81003 ==

== ENCOUNTER 2022-03-09 10:01 | Oncology outpatient (recurring) (ONCR) | payer BC, SELFPAY ==
[2022-03-09 10:47] LABS: Prostate Specific Antigen 0.047 ng/mL (0-4)
[2022-03-09] MEDS: lidocaine 1% INJ 20 mL MDV (mL) SUBCUT (11:41)
[2022-03-09] MEDS: goserelin acetate 10.8 mg Implant SUBCUT (11:43)
== END 2022-03-25 23:59 | disposition home or self-care (01) ==
PROVIDERS: PCP Nurse Practitioner Family; Visit Provider Internal Medicine Hematology & Oncology
DX: C61 Malignant neoplasm of prostate (principal); Z79.818 Long term (current) use of other agents affecting estrogen receptors and estrogen levels
CPT/HCPCS: 36415; 84153; 96372; 96401; J9202

== ENCOUNTER 2022-06-28 11:32 | Oncology outpatient (recurring) (ONCR) | payer MEDICARE, SELFPAY ==
[2022-06-28 12:23] LABS: Basophils % 0.1 %; Eosinophils % 0.1 %; Hematocrit 40.5 % (42.0-52.0); Hemoglobin 14.2 g/dL (11.7-16.6); Lymphocytes # 0.6 10^3/uL (0.8-4.8); Lymphocytes % 6.3 %; Mean Corpuscular HGB Conc 35.1 g/dL (30.0-36.0); Mean Corpuscular Hemoglobin 33.6 pg (28.0-34.0); Mean Platelet Volume 11.1 fL (7.4-10.4); Monocytes # 0.5 10^3/uL (0.2-0.9); Monocytes % 5.3 %; Neutrophils % 87.3 %; Nucleated Red Blood Cells % 0 %; Platelet Count 142 10^3/cmm (130-400); Red Blood Count 4.22 10^6/uL (4.1-5.3); Red Cell Distribution Width 13.7 % (12.1-15.1); White Blood Count 8.8 10^3/uL (4.0-10.0)
[2022-06-28 12:45] LABS: Alanine Aminotransferase 15 U/L (0-41); Alkaline Phosphatase 51 U/L (40-130); Anion Gap 16.9 (5-19); Aspartate Amino Transferase 23 U/L (0-40); Blood Urea Nitrogen 21 mg/dL (8-23); Calcium 9.3 mg/dL (8.5-10.5); Carbon Dioxide 23 mmol/L (22-29); Chloride 99 mmol/L (98-107); Globulin 2.4 g/dL (1.3-4.6); Glomerular Filtration Rate 60.8 mL/min (90-130); Glucose 134 mg/dL (65-115); Osmolality Calculated 283 mOsm/kg (285-295); Potassium 4.9 mmol/L (3.5-5.1); Prostate Specific Antigen 0.021 ng/mL (0-4); Sodium 134 mmol/L (136-145); Total Bilirubin 0.6 mg/dL (0.15-1.2); Total Protein 6.4 g/dL (6.6-8.7)
[2022-06-28] MEDS: lidocaine 1% INJ 20 mL MDV (mL) INTRADERMA (14:36)
[2022-06-28 14:39] VITALS: BP 127/85; PULSE 81; RESP 18; TEMP 36.8; O2SAT 98
[2022-06-28] MEDS: goserelin acetate 10.8 mg Implant SUBCUT (14:48)
== END 2022-07-23 23:59 | disposition home or self-care (01) ==
PROVIDERS: PCP Nurse Practitioner Family; Visit Provider Internal Medicine Hematology & Oncology
DX: C61 Malignant neoplasm of prostate (principal); Z79.818 Long term (current) use of other agents affecting estrogen receptors and estrogen levels; Z79.899 Other long term (current) drug therapy
CPT/HCPCS: 36415; 80053; 84153; 85025; 96402; J9202

== ENCOUNTER → 2022-08-08 11:02 | Outpatient (BNVA) | payer MEDICARE, SELFPAY | PROVIDERS: PCP Nurse Practitioner Family; Visit Provider Urology | DX: C61 Malignant neoplasm of prostate (principal); R39.9 Unspecified symptoms and signs involving the genitourinary system | CPT/HCPCS: 51741; 51798; 81003; 99213 ==

== ENCOUNTER → 2022-09-25 15:16 | Outpatient (BNVA) | payer MEDICARE, SELFPAY | PROVIDERS: PCP Nurse Practitioner Family; Visit Provider Internal Medicine | DX: I48.0 Paroxysmal atrial fibrillation (principal); Z79.01 Long term (current) use of anticoagulants; I10 Essential (primary) hypertension; E78.49 Other hyperlipidemia; Z95.0 Presence of cardiac pacemaker; I89.0 Lymphedema, not elsewhere classified | CPT/HCPCS: 99214 ==

== ENCOUNTER 2022-09-29 08:39 | Oncology outpatient (recurring) (ONCR) | payer MEDICARE, SELFPAY ==
[2022-09-29 08:52] VITALS: BP 147/87; PULSE 91; RESP 16; TEMP 36.3; O2SAT 97
[2022-09-29 09:31] LABS: Basophils # 0.1 10^3/uL (0.0-0.1); Basophils % 0.9 %; Eosinophils # 0.3 10^3/uL (0.0-0.8); Eosinophils % 4.9 %; Hematocrit 42.2 % (42.0-52.0); Hemoglobin 13.7 g/dL (11.7-16.6); Lymphocytes # 0.9 10^3/uL (0.8-4.8); Lymphocytes % 17.1 %; Mean Corpuscular HGB Conc 32.5 g/dL (30.0-36.0); Mean Corpuscular Volume 98.6 fl (80-94); Mean Platelet Volume 10.9 fL (7.4-10.4); Monocytes # 0.6 10^3/uL (0.2-0.9); Monocytes % 10.3 %; Neutrophils # 3.53 10^3/uL (1.8-7.7); Neutrophils % 66.4 %; Nucleated Red Blood Cells % 0 %; Platelet Count 146 10^3/cmm (130-400); Red Blood Count 4.28 10^6/uL (4.1-5.3); Red Cell Distribution Width 14.5 % (12.1-15.1); White Blood Count 5.3 10^3/uL (4.0-10.0)
[2022-09-29 09:50] LABS: Alanine Aminotransferase 12 U/L (0-41); Albumin Level 4.1 g/dL (3.5-5.2); Alkaline Phosphatase 58 U/L (40-130); Anion Gap 15.4 (5-19); Aspartate Amino Transferase 18 U/L (0-40); Blood Urea Nitrogen 23 mg/dL (8-23); Calcium 9.2 mg/dL (8.5-10.5); Carbon Dioxide 25 mmol/L (22-29); Chloride 103 mmol/L (98-107); Globulin 2.2 g/dL (1.3-4.6); Glomerular Filtration Rate 67.2 mL/min (90-130); Glucose 104 mg/dL (65-115); Osmolality Calculated 292 mOsm/kg (285-295); Potassium 4.4 mmol/L (3.5-5.1); Sodium 139 mmol/L (136-145); Total Bilirubin 0.6 mg/dL (0.15-1.2); Total Protein 6.3 g/dL (6.6-8.7)
[2022-09-29 10:53] LABS: Prostate Specific Antigen < 0.014 ng/mL (0-4)
[2022-09-29] MEDS: lidocaine 1% INJ 20 mL MDV (mL) SUBCUT (11:50)
[2022-09-29] MEDS: goserelin acetate 10.8 mg Implant SUBCUT (12:02)
== END 2022-10-23 23:59 | disposition home or self-care (01) ==
PROVIDERS: PCP Nurse Practitioner Family; Visit Provider Internal Medicine Hematology & Oncology
DX: C61 Malignant neoplasm of prostate (principal); M89.9 Disorder of bone, unspecified; Z79.818 Long term (current) use of other agents affecting estrogen receptors and estrogen levels
CPT/HCPCS: 36415; 80053; 84153; 85025; 96372; 96402; 99214; J9202

== ENCOUNTER 2022-12-07 16:11 | Emergency (ER) | payer MEDICARE, SELFPAY ==
[2022-12-07 16:32] VITALS: BP 147/80; PULSE 87; TEMP 36.7; O2SAT 97; BMI 42.3
[2022-12-07 21:45] VITALS: BP 183/86; PULSE 77; TEMP 37.7; O2SAT 99
--- NOTE | 2022-12-07 21:56 | ED_ITS ---
HPI - Male Genitourinary General: Chief complaint: Urogenital-Male Stated complaint: unable to pee Time Seen by Provider: 12/07/22 21:22 History of Present Illness: Patient presents to the ER for complaints of not being able to urinate for the last 10 hours. Patient states he has been having hematuria with sampson clots for several days and since about 3 PM today he has not been able produce any urine at all. Patient has already seen his primary care about this and he has an appo intment with a urologist in [place] next week. Patient would like a catheter placed until then. Review of Systems General: Reports: 10 or more systems reviewed and unremarkable except in HPI and below PFSH ED PFSH: Medical History Adenocarcinoma of prostate Anticoagulation adequate with anticoagulant therapy Atrial fibrillation BPH (benign prostatic hyperplasia) CAD (coronary artery disease) Gout H/O non-Hodgkin's lymphoma Hyperlipemia Hyperlipidemia Hypertension Pacemaker Prostate cancer Stasis dermatitis of both legs Urinary frequency Surgical History H/O adenoidectomy H/O colonoscopy (07/06/20) poor prep, cecal polyp , repeat in 5 years H/O detached retina repair H/O heart artery stent H/O lymph node biopsy History of appendectomy History of heart artery stent History of tonsillectomy Status post cardiac pacemaker procedure Family History Father , AT AGE 77 Cancer lung Lung disease Mother Cancer skin cancer Dementia Grandfather Stroke Social History Smoking and tobacco status: never smoked Alcohol intake: current Alcohol intake frequency: 0-2 Drinks per Day Substance/Drug Use: never Household members: spouse Marital status: Current occupational status: employed Physical Exam Const: COMMON NORMALS: no acute distress, average body habitus, patient oriented x3, no limitations, healthy appearing, alert and well nourished HENMT: COMMON NORMALS: normocephalic, atraumatic, hearing grossly normal bilaterally, external ears normal, Normal external nose present and moist oral mucous membranes HEAD & SCALP: normocephalic and atraumatic NOSE: Normal external nose present EXTERNAL EAR: Yes external ears normal Eye: COMMON NORMALS: Equal, round and reactive pupils present, EOMs intact bilaterally, conjunctivae normal and no scleral icterus CONJUNCTIVA: Yes conjunctivae normal PUPIL: Yes Equal, round and reactive pupils present Neck/C-Spine: COMMON NORMALS: no JVD Chest: COMMONS NORMALS: normal inspection of the chest and normal palpation of entire chest wall Resp: COMMON NORMALS: normal respiratory effort, No retractions, No use of accessory muscles and clear to auscultation bilaterally AUSCULTATION: clear to auscultation bilaterally Cardio: COMMON NORMALS: no JVD, regular rate, regular rhythm, S1 normal heart sound present, S2 normal heart sound present, No gallops present (Cardio), No clicks present (Cardio), No murmurs present (Cardio) and No rub (Cardio) RATE: regular rate RHYTHM: regular rhythm HEART SOUNDS: S1 normal heart sound present and S2 normal heart sound present GI: COMMON NORMALS: Normal to inspection, nondistended, normoactive bowel sounds present, Soft to palpation, non-tender, No hepatosplenomegaly present and no masses PALPATION: Yes Soft to palpation and Yes No hepatosplenomegaly present Neuro: COMMON NORMALS: patient oriented x3 SENSORIUM/ORIENTATION: Yes alert Course Vital Signs: Vital signs: Vital Signs Temperature 99.8 F H 12/07/22 21:45 Pulse Rate 77 12/07/22 21:45 Respiratory Rate 18 12/07/22 23:29 Blood Pressure 183/86 12/07/22 21:45 Pulse Oximetry 99 12/07/22 21:45 Oxygen Delivery Me thod Room Air 12/07/22 21:45 MDM - Male Medical Decision Making Patient presents to the ER with acute urinary retention secondary to a probable clot. Patient has not peed in about 8 hours and is very uncomfortable. Multiple nurses of tried multiple catheters with no success. Patient was given 60 mg Toradol, 2 mg Ativan, and Uro-Jet with a failed catheter insertion. Dr. Varela urology at [facility] was consulted who said she had him to the ER but the ER doc see him and he will notify him when he arrives. Dr. Dr. Sykes in the ER who accepts the patient in transfer. Differential Diagnosis Likely acute retention of urine; Unlikely urinary tract infection, priapism, urethritis, epididymitis, genital herpes simplex, prostatitis or inguinal hernia Medical Records I reviewed the patient's medical records. Lab Data I reviewed the patient's lab results. No radiology studies performed this visit Discharge Plan Discharge Patient Disposition: Transfer to ED Clinical Impression: Acute retention of urine, Anticoagulation adequate with anticoagulant therapy, Prostate cancer Condition: Stable Prescriptions: No Action levocetirizine [Xyzal] 5 mg tablet 5 mg PO DAILY PRN fenofibrate nanocrystallized 145 mg tablet 145 mg PO DAILY tamsulosin 0.4 mg capsule 0.4 mg PO DAILY Qty: 90 3RF oxybutynin chloride 5 mg tablet extended release 24hr 5 mg PO DAILY Qty: 90 3RF Zoladex 10.8 mg implant SUBCUT acetaminophen [Tylenol Arthritis Pain] 650 mg tablet extended release 650 mg PO Q12H mupirocin 2 % ointment 1 applic topical BID PRN triamcinolone acetonide 0.1 % ointment 1 applic topical BID PRN Rx Instructions: apply to affected area no more than 2 weeks per month. not for face Eliquis 5 mg tablet 5 mg PO BID Qty: 60 0RF Rx Instructions: Make follow-up for further refills triamterene-hydrochlorothiazid 37.5-25 mg tablet 2 tab PO DAILY rosuvastatin 40 mg tablet 40 mg PO DAILY Qty: 90 3RF metoprolol succinate 100 mg tablet extended release 24 hr 50 mg PO BID allopurinol 300 mg tablet 300 mg PO BID prochlorperazine maleate [Compazine] 10 mg tablet 10 mg PO Q4H PRN (Reason: Mild Nausea) Qty: 30 3RF lorazepam 1 mg tablet 0.5 - 1 mg PO Q6H PRN (Reason: Severe Nausea) Qty: 30 3RF Referrals: Irina Valdovinos FNP [Primary Care Provider] - Coding Level of Care Code ED Sales And Distribution Clerk for Deidra Hernandez
[2022-12-07] MEDS: ketorolac 60 mg/2 mL INJ IM (22:48)
[2022-12-07] MEDS: LORazepam 2 mg/mL INJ 1 mL IM (22:49)
[2022-12-07 23:29] VITALS: RESP 18
[2022-12-07] MEDS: morphine 4 mg/mL SDV 1 mL IVP (23:29)
== END 2022-12-07 23:45 ==
PROVIDERS: Emergency Provider Emergency Medicine; PCP Nurse Practitioner Family
DX: R33.9 Retention of urine, unspecified (principal); Z79.01 Long term (current) use of anticoagulants; D68.318 Other hemorrhagic disorder due to intrinsic circulating anticoagulants, antibodies, or inhibitors; C61 Malignant neoplasm of prostate; I25.10 Atherosclerotic heart disease of native coronary artery without angina pectoris; Z85.72 Personal history of non-Hodgkin lymphomas; E78.5 Hyperlipidemia, unspecified; I10 Essential (primary) hypertension; Z95.0 Presence of cardiac pacemaker
CPT/HCPCS: 96372; 96374; 99284; J1885; J2060; J2270

== ENCOUNTER 2022-12-25 10:07 | Oncology outpatient (recurring) (ONCR) | payer MEDICARE, SELFPAY ==
[2022-12-25 11:03] LABS: Alanine Aminotransferase 11 U/L (0-41); Albumin Level 3.9 g/dL (3.5-5.2); Alkaline Phosphatase 62 U/L (40-130); Anion Gap 15.5 (5-19); Aspartate Amino Transferase 16 U/L (0-40); Blood Urea Nitrogen 18 mg/dL (8-23); Calcium 9.2 mg/dL (8.5-10.5); Carbon Dioxide 23 mmol/L (22-29); Chloride 102 mmol/L (98-107); Globulin 2.4 g/dL (1.3-4.6); Glomerular Filtration Rate 67.2 mL/min (90-130); Glucose 104 mg/dL (65-115); Osmolality Calculated 284 mOsm/kg (285-295); Potassium 4.5 mmol/L (3.5-5.1); Sodium 136 mmol/L (136-145); Total Bilirubin 0.5 mg/dL (0.15-1.2); Total Protein 6.3 g/dL (6.6-8.7)
[2022-12-25 11:04] LABS: Prostate Specific Antigen < 0.014 ng/mL (0-4)
[2022-12-25 13:07] LABS: Basophils # 0.1 10^3/uL (0.0-0.1); Basophils % 0.9 %; Eosinophils # 0.2 10^3/uL (0.0-0.8); Eosinophils % 2.7 %; Hematocrit 34.8 % (37-53); Lymphocytes # 0.7 10^3/uL (0.8-4.8); Lymphocytes % 9.7 %; Mean Corpuscular Hemoglobin 31.6 pg (27-33); Mean Corpuscular Volume 95.6 fl (82-101); Mean Platelet Volume 10.6 fL (7.4-10.4); Monocytes # 0.5 10^3/uL (0.2-0.9); Monocytes % 6.7 %; Neutrophils % 79.6 %; Nucleated Red Blood Cells % 0 %; Platelet Count 273 10^3/cmm (157-399); Red Blood Count 3.64 10^6/uL (3.85-5.65); Red Cell Distribution Width 15.1 % (12.1-15.1); White Blood Count 6.67 10^3/uL (3.29-11.43)
[2022-12-25] MEDS: lidocaine 1% INJ 20 mL MDV (mL) SUBCUT (13:49)
[2022-12-25] MEDS: goserelin acetate 10.8 mg Implant SUBCUT (14:06)
== END 2023-01-23 23:59 | disposition home or self-care (01) ==
PROVIDERS: Internal Medicine Medical Oncology; PCP Nurse Practitioner Family; Visit Provider Internal Medicine Hematology & Oncology
DX: C61 Malignant neoplasm of prostate (principal); Z79.818 Long term (current) use of other agents affecting estrogen receptors and estrogen levels; Z79.899 Other long term (current) drug therapy; N30.40 Irradiation cystitis without hematuria
CPT/HCPCS: 36415; 80053; 84153; 85025; 96372; 96402; 99213; 99214; J9202

== ENCOUNTER 2023-02-13 10:11 | Outpatient (CLI) | payer MEDICARE, SELFPAY ==
--- NOTE | 2023-02-13 10:24 | XRR_ITS ---
PROCEDURE INFORMATION: Exam: XR Chest Exam date and time: 02/13/2023 10:31 AM Age: 67 years old Clinical indication: Screening exam; Other screening; Prior surgery; Surgery date: 6+ months; Surgery type: Pacemaker; Patient HX: HX of prostate cancer and non hodgkins lymphoma; Additional info: PT needs screened for hyperbaric oxygen treatments, rule out bolus disease, hyperbaric oxygen clearance TECHNIQUE: Imaging protocol: Radiologic exam of the chest. Views: 2 views. COMPARISON: CR XR chest 2V* [id number] 09/29/2020 4:05 PM FINDINGS: Tubes, catheters and devices: Two lead pacemaker/defibrillator. Lungs: Unremarkable. No consolidation. Pleural spaces: Unremarkable. No pleural effusion. No pneumothorax. Heart/Mediastinum: Unremarkable. No cardiomegaly. Bones/joints: Unremarkable. XR/XR chest 2V* [id number] IMPRESSION: No acute findings.
== END 2023-02-13 10:12 | disposition home or self-care (01) ==
PROVIDERS: PCP Nurse Practitioner Family; Visit Provider Thoracic Surgery (Cardiothoracic Vascular Surgery)
DX: Z01.89 Encounter for other specified special examinations (principal); H33.21 Serous retinal detachment, right eye; Z95.0 Presence of cardiac pacemaker; Z85.46 Personal history of malignant neoplasm of prostate; Z85.72 Personal history of non-Hodgkin lymphomas; Z92.3 Personal history of irradiation
CPT/HCPCS: 71046; 99212

== ENCOUNTER → 2023-02-19 08:16 | Outpatient (BNVA) | payer MEDICARE, SELFPAY | PROVIDERS: PCP Nurse Practitioner Family; Visit Provider Nurse Practitioner Family | DX: N30.41 Irradiation cystitis with hematuria (principal) | CPT/HCPCS: G0277 ==

== ENCOUNTER → 2023-02-20 08:38 | Outpatient (BNVA) | payer MEDICARE, SELFPAY | PROVIDERS: PCP Nurse Practitioner Family; Visit Provider Nurse Practitioner Family | DX: N30.41 Irradiation cystitis with hematuria (principal) | CPT/HCPCS: G0277 ==

== ENCOUNTER → 2023-02-21 08:18 | Outpatient (BNVA) | payer MEDICARE, SELFPAY | PROVIDERS: PCP Nurse Practitioner Family; Visit Provider Nurse Practitioner Family | DX: N30.41 Irradiation cystitis with hematuria (principal) | CPT/HCPCS: G0277 ==

== ENCOUNTER → 2023-02-22 08:35 | Outpatient (BNVA) | payer MEDICARE, SELFPAY | PROVIDERS: PCP Nurse Practitioner Family; Visit Provider Nurse Practitioner Family | DX: N30.41 Irradiation cystitis with hematuria (principal) | CPT/HCPCS: G0277 ==

== ENCOUNTER → 2023-02-26 08:18 | Outpatient (BNVA) | payer MEDICARE, SELFPAY | PROVIDERS: PCP Nurse Practitioner Family; Visit Provider Thoracic Surgery (Cardiothoracic Vascular Surgery) | DX: N30.41 Irradiation cystitis with hematuria (principal) | CPT/HCPCS: G0277 ==

== ENCOUNTER → 2023-02-27 07:55 | Outpatient (BNVA) | payer MEDICARE, SELFPAY | PROVIDERS: PCP Nurse Practitioner Family; Visit Provider Nurse Practitioner Family | DX: N30.41 Irradiation cystitis with hematuria (principal) | CPT/HCPCS: G0277 ==

== ENCOUNTER → 2023-02-28 13:27 | Outpatient (BNVA) | payer MEDICARE, SELFPAY | PROVIDERS: PCP Nurse Practitioner Family; Visit Provider Nurse Practitioner Family | DX: I48.0 Paroxysmal atrial fibrillation (principal); Z79.01 Long term (current) use of anticoagulants; N30.41 Irradiation cystitis with hematuria | CPT/HCPCS: 99212; 99213 ==

== ENCOUNTER → 2023-03-05 08:23 | Outpatient (BNVA) | payer MEDICARE, SELFPAY | PROVIDERS: PCP Nurse Practitioner Family; Visit Provider Thoracic Surgery (Cardiothoracic Vascular Surgery) | DX: N30.41 Irradiation cystitis with hematuria (principal) | CPT/HCPCS: G0277 ==

== ENCOUNTER → 2023-03-06 07:55 | Outpatient (BNVA) | payer MEDICARE, SELFPAY | PROVIDERS: PCP Nurse Practitioner Family; Visit Provider Nurse Practitioner Family | DX: N30.41 Irradiation cystitis with hematuria (principal) | CPT/HCPCS: G0277 ==

== ENCOUNTER → 2023-03-07 08:04 | Outpatient (BNVA) | payer MEDICARE, SELFPAY | PROVIDERS: PCP Nurse Practitioner Family; Visit Provider Thoracic Surgery (Cardiothoracic Vascular Surgery) | DX: N30.41 Irradiation cystitis with hematuria (principal) | CPT/HCPCS: G0277 ==

== ENCOUNTER → 2023-03-08 08:07 | Outpatient (BNVA) | payer MEDICARE, SELFPAY | PROVIDERS: PCP Nurse Practitioner Family; Visit Provider Nurse Practitioner Family | DX: N30.41 Irradiation cystitis with hematuria (principal) | CPT/HCPCS: G0277 ==

== ENCOUNTER → 2023-03-09 08:04 | Outpatient (BNVA) | payer MEDICARE, SELFPAY | PROVIDERS: PCP Nurse Practitioner Family; Visit Provider Thoracic Surgery (Cardiothoracic Vascular Surgery) | DX: N30.41 Irradiation cystitis with hematuria (principal) | CPT/HCPCS: G0277 ==

== ENCOUNTER → 2023-03-12 08:08 | Outpatient (BNVA) | payer MEDICARE, SELFPAY | PROVIDERS: PCP Nurse Practitioner Family; Visit Provider Thoracic Surgery (Cardiothoracic Vascular Surgery) | DX: N30.41 Irradiation cystitis with hematuria (principal) | CPT/HCPCS: G0277 ==

== ENCOUNTER → 2023-03-13 08:25 | Outpatient (BNVA) | payer MEDICARE, SELFPAY | PROVIDERS: PCP Nurse Practitioner Family; Visit Provider Thoracic Surgery (Cardiothoracic Vascular Surgery) | DX: N30.41 Irradiation cystitis with hematuria (principal) | CPT/HCPCS: G0277 ==

== ENCOUNTER → 2023-03-14 08:13 | Outpatient (BNVA) | payer MEDICARE, SELFPAY | PROVIDERS: PCP Nurse Practitioner Family; Visit Provider Thoracic Surgery (Cardiothoracic Vascular Surgery) | DX: N30.41 Irradiation cystitis with hematuria (principal) | CPT/HCPCS: G0277 ==

== ENCOUNTER → 2023-03-15 07:57 | Outpatient (BNVA) | payer MEDICARE, SELFPAY | PROVIDERS: PCP Nurse Practitioner Family; Visit Provider Thoracic Surgery (Cardiothoracic Vascular Surgery) | DX: N30.41 Irradiation cystitis with hematuria (principal) | CPT/HCPCS: G0277 ==

== ENCOUNTER 2023-03-20 11:49 | Oncology outpatient (recurring) (ONCR) | payer MEDICARE, SELFPAY ==
[2023-03-20 12:01] VITALS: BP 159/83; PULSE 93; RESP 16; TEMP 36.3; O2SAT 98
[2023-03-20 12:54] LABS: Basophils % 0.6 %; Eosinophils # 0.1 10^3/uL (0.0-0.8); Eosinophils % 1.9 %; Hematocrit 42.8 % (37-53); Lymphocytes # 0.6 10^3/uL (0.8-4.8); Lymphocytes % 8.5 %; Mean Corpuscular Hemoglobin 32.8 pg (27-33); Mean Corpuscular Volume 102.4 fl (82-101); Mean Platelet Volume 10.6 fL (7.4-10.4); Monocytes # 0.4 10^3/uL (0.2-0.9); Monocytes % 5.4 %; Neutrophils # 5.71 10^3/uL (1.8-7.7); Neutrophils % 83.2 %; Nucleated Red Blood Cells % 0 %; Platelet Count 154 10^3/cmm (157-399); Red Blood Count 4.18 10^6/uL (3.85-5.65); Red Cell Distribution Width 16.5 % (12.1-15.1); White Blood Count 6.86 10^3/uL (3.29-11.43)
[2023-03-20 13:38] LABS: Alanine Aminotransferase 33 U/L (0-41); Albumin Level 3.9 g/dL (3.5-5.2); Alkaline Phosphatase 78 U/L (40-130); Aspartate Amino Transferase 39 U/L (0-40); Blood Urea Nitrogen 21 mg/dL (8-23); Calcium 9.2 mg/dL (8.5-10.5); Carbon Dioxide 28 mmol/L (22-29); Chloride 101 mmol/L (98-107); Globulin 2.3 g/dL (1.3-4.6); Glomerular Filtration Rate 84.7 mL/min (90-130); Glucose 136 mg/dL (65-115); Osmolality Calculated 293 mOsm/kg (285-295); Prostate Specific Antigen < 0.014 ng/mL (0-4); Sodium 139 mmol/L (136-145); Total Bilirubin 0.6 mg/dL (0.15-1.2); Total Protein 6.2 g/dL (6.6-8.7)
[2023-03-20] MEDS: lidocaine 1% INJ 20 mL MDV (mL) SUBCUT (14:32)
[2023-03-20] MEDS: goserelin acetate 10.8 mg Implant SUBCUT (14:39)
== END 2023-03-25 23:59 | disposition home or self-care (01) ==
PROVIDERS: Internal Medicine Medical Oncology; PCP Nurse Practitioner Family; Visit Provider Internal Medicine Hematology & Oncology
DX: C61 Malignant neoplasm of prostate (principal); N30.41 Irradiation cystitis with hematuria; Z79.818 Long term (current) use of other agents affecting estrogen receptors and estrogen levels; Z79.899 Other long term (current) drug therapy; Y84.2 Radiological procedure and radiotherapy as the cause of abnormal reaction of the patient, or of later complication, without mention of misadventure at the time of the procedure
CPT/HCPCS: 36415; 80053; 84153; 85025; 96372; 96402; 99214; G0277; J9202

== ENCOUNTER → 2023-03-21 08:01 | Outpatient (BNVA) | payer MEDICARE, SELFPAY | PROVIDERS: PCP Nurse Practitioner Family; Visit Provider Nurse Practitioner Family | DX: N30.41 Irradiation cystitis with hematuria (principal) | CPT/HCPCS: G0277 ==

== ENCOUNTER → 2023-03-22 07:55 | Outpatient (BNVA) | payer MEDICARE, SELFPAY | PROVIDERS: PCP Nurse Practitioner Family; Visit Provider Nurse Practitioner Family | DX: N30.41 Irradiation cystitis with hematuria (principal) | CPT/HCPCS: G0277 ==

== ENCOUNTER → 2023-04-02 07:53 | Outpatient (BNVA) | payer MEDICARE, SELFPAY | PROVIDERS: PCP Nurse Practitioner Family; Visit Provider Thoracic Surgery (Cardiothoracic Vascular Surgery) | DX: N30.41 Irradiation cystitis with hematuria (principal) | CPT/HCPCS: G0277 ==

== ENCOUNTER → 2023-04-03 14:01 | Outpatient (BNVA) | payer MEDICARE, SELFPAY | PROVIDERS: PCP Nurse Practitioner Family; Visit Provider Internal Medicine | DX: N30.41 Irradiation cystitis with hematuria (principal); L59.8 Other specified disorders of the skin and subcutaneous tissue related to radiation; Y84.2 Radiological procedure and radiotherapy as the cause of abnormal reaction of the patient, or of later complication, without mention of misadventure at the time of the procedure; I48.0 Paroxysmal atrial fibrillation; I10 Essential (primary) hypertension; E78.49 Other hyperlipidemia; I89.0 Lymphedema, not elsewhere classified; Z95.0 Presence of cardiac pacemaker | CPT/HCPCS: 99214; G0277 ==

== ENCOUNTER → 2023-04-04 07:51 | Outpatient (BNVA) | payer MEDICARE, SELFPAY | PROVIDERS: PCP Nurse Practitioner Family; Visit Provider Thoracic Surgery (Cardiothoracic Vascular Surgery) | DX: N30.41 Irradiation cystitis with hematuria (principal) | CPT/HCPCS: G0277 ==

== ENCOUNTER → 2023-04-05 08:00 | Outpatient (BNVA) | payer MEDICARE, SELFPAY | PROVIDERS: PCP Nurse Practitioner Family; Visit Provider Nurse Practitioner Family | DX: N30.41 Irradiation cystitis with hematuria (principal) | CPT/HCPCS: G0277 ==

== ENCOUNTER → 2023-04-06 07:55 | Outpatient (BNVA) | payer MEDICARE, SELFPAY | PROVIDERS: PCP Nurse Practitioner Family; Visit Provider Thoracic Surgery (Cardiothoracic Vascular Surgery) | DX: N30.41 Irradiation cystitis with hematuria (principal) | CPT/HCPCS: G0277 ==

== ENCOUNTER → 2023-04-09 07:52 | Outpatient (BNVA) | payer MEDICARE, SELFPAY | PROVIDERS: PCP Nurse Practitioner Family; Visit Provider Thoracic Surgery (Cardiothoracic Vascular Surgery) | DX: N30.41 Irradiation cystitis with hematuria (principal) | CPT/HCPCS: G0277 ==

== ENCOUNTER → 2023-04-10 13:02 | Outpatient (BNVA) | payer MEDICARE, SELFPAY | PROVIDERS: PCP Nurse Practitioner Family; Visit Provider Nurse Practitioner Family | DX: N30.41 Irradiation cystitis with hematuria (principal) | CPT/HCPCS: G0277 ==

== ENCOUNTER → 2023-04-11 07:59 | Outpatient (BNVA) | payer MEDICARE, SELFPAY | PROVIDERS: PCP Nurse Practitioner Family; Visit Provider Thoracic Surgery (Cardiothoracic Vascular Surgery) | DX: N30.41 Irradiation cystitis with hematuria (principal) | CPT/HCPCS: G0277 ==

== ENCOUNTER → 2023-04-12 08:04 | Outpatient (BNVA) | payer MEDICARE, SELFPAY | PROVIDERS: PCP Nurse Practitioner Family; Visit Provider Nurse Practitioner Family | DX: N30.41 Irradiation cystitis with hematuria (principal) | CPT/HCPCS: G0277 ==

== ENCOUNTER → 2023-04-13 07:48 | Outpatient (BNVA) | payer MEDICARE, SELFPAY | PROVIDERS: PCP Nurse Practitioner Family; Visit Provider Thoracic Surgery (Cardiothoracic Vascular Surgery) | DX: N30.41 Irradiation cystitis with hematuria (principal) | CPT/HCPCS: G0277 ==

== ENCOUNTER 2023-04-17 04:43 | Emergency (ER) | payer MEDICARE, SELFPAY ==
[2023-04-17 04:50] VITALS: BP 187/84; PULSE 95; RESP 16; TEMP 37.4; O2SAT 92; BMI 39.8
--- NOTE | 2023-04-17 05:00 | XRR_ITS ---
PROCEDURE INFORMATION: Exam: XR Chest Exam date and time: 04/17/2023 5:37 AM Age: 67 years old Clinical indication: Cough; Prior surgery; Surgery date: 6+ months; Surgery type: Pacer; Patient HX: Chills/headache TECHNIQUE: Imaging protocol: Radiologic exam of the chest. Views: 1 view. COMPARISON: CR XR chest 2V* [id number] 02/13/2023 10:31 AM FINDINGS: Tubes, catheters and devices: Two lead pacemaker/defibrillator. Lungs: Unremarkable. No consolidation. Pleural spaces: Unremarkable. No pleural effusion. No pneumothorax. Heart/Mediastinum: Unremarkable. No cardiomegaly. Bones/joints: Unremarkable. XR/XR chest 1V portable [id number] IMPRESSION: No acute cardiopulmonary disease.
--- NOTE | 2023-04-17 05:27 | ED_ITS ---
Documented by User: Rigoberto Fine DO 04/17/23 05:32 HPI - General Adult 2 General: Chief complaint: General Medical Stated complaint: chills,fever, unable to sleep, headache Time Seen by Provider: 04/17/23 05:02 History of Present Illness: Patient presents to the ER with complaints of fever chills cough minimally productive cough headache. Patient states he is all began the morning of April 16 he denies being around any sick acquaintances. However he does say his has the same symptoms that he has. Patient took Tylenol sometime this morning. Patient currently rates his headache a 5 out of 10 in a global distribution type pattern. He denies any nausea vomiting diarrhea at this time. Patient does complain of chronic insomnia and not sleeping very well since November. Patient is normally on Eliquis for his atrial fibrillation however he has been off of it for some time because he is trying to undergo surgery on his bladder/prostate. Patient does have a history of prostate cancer and non- Hodgkin's lymphoma. Review of Systems 2 General: Reports: 10 or more systems reviewed and unremarkable except in HPI and below PFSH ED 2 PFSH: Medical History Urinary frequency Adenocarcinoma of prostate Anticoagulation adequate with anticoagulant therapy CAD (coronary artery disease) Prostate cancer Stasis dermatitis of both legs Pacemaker Hyperlipemia Atrial fibrillation H/O non-Hodgkin's lymphoma Hyperlipidemia BPH (benign prostatic hyperplasia) Gout Hypertension Surgical History History of heart artery stent Status post cardiac pacemaker procedure History of appendectomy H/O detached retina repair H/O lymph node biopsy H/O adenoidectomy History of tonsillectomy H/O colonoscopy (07/06/20) poor prep, cecal polyp , repeat in 5 years H/O heart artery stent Family History Father , AT AGE 77 Cancer lung Lung disease Mother Cancer skin cancer Dementia Grandfather Stroke Social History Smoking and tobacco/nicotine status: never used tobacco/nicotine Alcohol intake: current Alcohol intake frequency: 0-2 Drinks per Day Substance/Drug Use: never Household members: spouse Marital status: Current occupational status: employed Physical Exam 2 Const: COMMON NORMALS: no acute distress, average body habitus, patient oriented x3, no limitations, healthy appearing, alert and well nourished HENMT: COMMON NORMALS: normocephalic, atraumatic, hearing grossly normal bilaterally, external ears normal, Normal external nose present, moist oral mucous membranes and oropharynx normal HEAD & SCALP: normocephalic and atraumatic NOSE: Normal external nose present EXTERNAL EAR: Yes external ears normal Neck/C-Spine: COMMON NORMALS: no JVD Chest: COMMONS NORMALS: normal inspection of the chest and normal palpation of entire chest wall Resp: COMMON NORMALS: normal respiratory effort, No retractions, No use of accessory muscles and clear to auscultation bilaterally AUSCULTATION: clear to auscultation bilaterally Cardio: COMMON NORMALS: no JVD and regular rate; negative for regular rhythm (Irregularly irregular rhythm) RATE: regular rate RHYTHM: abnormal rhythm (Irregularly irregular rhythm) GI: COMMON NORMALS: Normal to inspection, nondistended, normoactive bowel sounds present, Soft to palpation, non-tender, No hepatosplenomegaly present and no masses PALPATION: Yes Soft to palpation and Yes No hepatosplenomegaly present Neuro: COMMON NORMALS: patient oriented x3 SENSORIUM/ORIENTATION: Yes alert Course 2 Vital Signs: Vital signs: Vital Signs Temperature 99.4 F 04/17/23 04:50 Pulse Rate 106 H 04/17/23 08:20 Respiratory Rate 18 04/17/23 08:20 Blood Pressure 146/84 04/17/23 08:20 Pulse Oximetry 93 04/17/23 08:20 Oxygen Delivery Me thod Room Air 04/17/23 07:43 MDM - General Adult Differential Diagnosis Headache, viral syndrome, influenza, COVID, Medical Records I reviewed the patient's medical records. Lab Data I reviewed the patient's lab results. 04/17/23 05:30 04/17/23 05:30 Radiology Impressions Chest X-Ray 04/17/23 05:00 IMPRESSION: No acute cardiopulmonary disease. Laboratory Results WBC 5.21 10^3/uL (3.29-11.43) 04/17/23 05:30 RBC 3.66 10^6/uL (3.85-5.65) L 04/17/23 05:30 Hgb 11.80 g/dL (11.27-16.99) 04/17/23 05:30 Hct 35.9 % (37-53) L 04/17/23 05:30 MCV 98.1 fl (82-101) 04/17/23 05:30 MCH 32.2 pg (27-33) 04/17/23 05:30 MCHC 32.9 g/dL (30-55) 04/17/23 05:30 RDW 15.6 % (12.1-15.1) H 04/17/23 05:30 Plt Count 144 10^3/cmm (157-399) L 04/17/23 05:30 MPV 9.8 fL (7.4-10.4) 04/17/23 05:30 Neut % (Auto) 80.5 % 04/17/23 05:30 Lymph % (Auto) 5.6 % 04/17/23 05:30 [place] % (Auto) 12.1 % 04/17/23 05:30 Eos % (Auto) 1.0 % 04/17/23 05:30 Baso % (Auto) 0.4 % 04/17/23 05:30 Neut # (Auto) 4.20 10^3/uL (1.8-7.7) 04/17/23 05:30 Lymph # (Auto) 0.3 10^3/uL (0.8-4.8) L 04/17/23 05:30 [place] # (Auto) 0.6 10^3/uL (0.2-0.9) 04/17/23 05:30 Eos # (Auto) 0.1 10^3/uL (0.0-0.8) 04/17/23 05:30 Baso # (Auto) 0.0 10^3/uL (0.0-0.1) 04/17/23 05:30 Nucleated RBC % (auto) 0 % 04/17/23 05:30 Nucleated RBCs # 0.0 /100WBC 04/17/23 05:30 Sodium 135 mmol/L (136-145) L 04/17/23 05:30 Potassium 3.8 mmol/L (3.5-5.1) 04/17/23 05:30 Chloride 99 mmol/L (98-107) 04/17/23 05:30 Carbon Dioxide 25 mmol/L (22-29) 04/17/23 05:30 Anion Gap 14.8 (5-19) 04/17/23 05:30 BUN 12 mg/dL (8-23) 04/17/23 05:30 Creatinine 0.8 mg/dL (0.7-1.2) 04/17/23 05:30 GFR Calculation 97.0 mL/min (90-130) 04/17/23 05:30 Glucose 123 mg/dL (65-115) H 04/17/23 05:30 Calculated Osmolality 281 mOsm/kg (285-295) L 04/17/23 05:30 Calcium 9.0 mg/dL (8.5-10.5) 04/17/23 05:30 Total Bilirubin 0.8 mg/dL (0.15-1.2) 04/17/23 05:30 AST 19 U/L (0-40) 04/17/23 05:30 ALT 20 U/L (0-41) 04/17/23 05:30 Alkaline Phosphatase 78 U/L (40-130) 04/17/23 05:30 Total Protein 6.1 g/dL (6.6-8.7) L 04/17/23 05:30 Albumin 3.6 g/dL (3.5-5.2) 04/17/23 05:30 Globulin 2.5 g/dL (1.3-4.6) 04/17/23 05:30 Coronavirus 229E (PCR) Not detected (NOT DETECT) 04/17/23 07:40 Influenza Type A Ag negative (Negative) 04/17/23 05:18 Influenza Type B Ag negative (Negative) 04/17/23 05:18 SARS-CoV-2 (PCR) Detected (NOT DETECT) A 04/17/23 07:40 SARS-CoV-2 Ag (Rapid) negative (Negative) 04/17/23 05:18 All radiology interpretation(s) finalized by discharge Discharge Plan Discharge Patient Disposition: Home Clinical Impression: Viral URI with cough Condition: Stable Prescriptions: New Paxlovid 300 mg (150 mg x 2)-100 mg tablets,dose pack See Rx Instructions .ROUTE .COMPLEX Qty: 30 0RF Rx Instructions: orally per package directions No Action levocetirizine [Xyzal] 5 mg tablet 5 mg PO DAILY PRN fenofibrate nanocrystallized 145 mg tablet 145 mg PO DAILY tamsulosin 0.4 mg capsule 0.4 mg PO DAILY Qty: 90 3RF apixaban 2.5 mg tablet 2.5 mg PO BID Qty: 180 0RF Zoladex 10.8 mg implant SUBCUT acetaminophen [Tylenol Arthritis Pain] 650 mg tablet extended release 650 mg PO Q12H mupirocin 2 % ointment 1 applic topical BID PRN triamcinolone acetonide 0.1 % ointment 1 applic topical BID PRN Rx Instructions: apply to affected area no more than 2 weeks per month. not for face oxybutynin chloride 5 mg tablet extended release 24hr 15 mg PO DAILY zolpidem 12.5 mg tablet,ext release multiphase PO triamterene-hydrochlorothiazid 37.5-25 mg tablet 2 tab PO DAILY rosuvastatin 40 mg tablet 40 mg PO DAILY Qty: 90 3RF metoprolol succinate 100 mg tablet extended release 24 hr 50 mg PO BID allopurinol 300 mg tablet 300 mg PO BID Discharge Orders: Discharge ED (Routine); Ordered 04/17/23 Ordered By: Dominic Higuera Referrals: Irina Valdovinos FNP [Primary Care Provider] - Discharge Diet: Usual diet Discharge Activity: Increase activity as tolerated Patient Instructions: Viral Syndrome (ED), Opioid Safety, Pain Management Activity Restrictions/Additional Instructions: Thank you for choosing [facility] for your healthcare needs today. Please realize this is an emergency room and that we are providing you with a medical screening exam and this may not be complete and all inclusive of all the testing and or work up that you may need to determine your ailment or severity of your illness. It is very important that you follow up as instructed or that you return to the Emergency Department should you have concerns or if your condition changes or worsens in any way. Sign Out Sign Out Data: Patient Sign Out occurred on 04/17/23 at 06:21. Patient's care was discussed, and care was transferred from Rigoberto Fine DO to Dominic Higuera DO. 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 [employer] Documented by User: Dominic Higuera DO 04/17/23 16:15 HPI - General Adult 2 General: Chief complaint: General Medical Stated complaint: chills,fever, unable to sleep, headache Time Seen by Provider: 04/17/23 05:02 PFSH ED 2 PFSH: Medical History Urinary frequency Adenocarcinoma of prostate Anticoagulation adequate with anticoagulant therapy CAD (coronary artery disease) Prostate cancer Stasis dermatitis of both legs Pacemaker Hyperlipemia Atrial fibrillation H/O non-Hodgkin's lymphoma Hyperlipidemia BPH (benign prostatic hyperplasia) Gout Hypertension Surgical History History of heart artery stent Status post cardiac pacemaker procedure History of appendectomy H/O detached retina repair H/O lymph node biopsy H/O adenoidectomy History of tonsillectomy H/O colonoscopy (07/06/20) poor prep, cecal polyp , repeat in 5 years H/O heart artery stent Family History Father , AT AGE 77 Cancer lung Lung disease Mother Cancer skin cancer Dementia Grandfather Stroke Social History Smoking and tobacco/nicotine status: never used tobacco/nicotine Alcohol intake: current Alcohol intake frequency: 0-2 Drinks per Day Substance/Drug Use: never Household members: spouse Marital status: Current occupational status: employed Course 2 Vital Signs: Vital signs: Vital Signs Temperature 99.4 F 04/17/23 04:50 Pulse Rate 106 H 04/17/23 08:20 Respiratory Rate 18 04/17/23 08:20 Blood Pressure 146/84 04/17/23 08:20 Pulse Oximetry 93 04/17/23 08:20 Oxygen Delivery Me thod Room Air 04/17/23 07:43 MDM - General Adult Medical Decision Making Assumed care at change of shift. Labs and imaging reviewed laboratory findings suggestive of COVID patient has no acute emergent condition discharged home COVID test did later come back positive called and Alvarezlovid for the patient had reviewed and discussed plan before discharge the patient Lab Data 04/17/23 05:30 04/17/23 05:30 Radiology Impressions Chest X-Ray 04/17/23 05:00 IMPRESSION: No acute cardiopulmonary disease. Laboratory Results WBC 5.21 10^3/uL (3.29-11.43) 04/17/23 05:30 RBC 3.66 10^6/uL (3.85-5.65) L 04/17/23 05:30 Hgb 11.80 g/dL (11.27-16.99) 04/17/23 05:30 Hct 35.9 % (37-53) L 04/17/23 05:30 MCV 98.1 fl (82-101) 04/17/23 05:30 MCH 32.2 pg (27-33) 04/17/23 05:30 MCHC 32.9 g/dL (30-55) 04/17/23 05:30 RDW 15.6 % (12.1-15.1) H 04/17/23 05:30 Plt Count 144 10^3/cmm (157-399) L 04/17/23 05:30 MPV 9.8 fL (7.4-10.4) 04/17/23 05:30 Neut % (Auto) 80.5 % 04/17/23 05:30 Lymph % (Auto) 5.6 % 04/17/23 05:30 [place] % (Auto) 12.1 % 04/17/23 05:30 Eos % (Auto) 1.0 % 04/17/23 05:30 Baso % (Auto) 0.4 % 04/17/23 05:30 Neut # (Auto) 4.20 10^3/uL (1.8-7.7) 04/17/23 05:30 Lymph # (Auto) 0.3 10^3/uL (0.8-4.8) L 04/17/23 05:30 [place] # (Auto) 0.6 10^3/uL (0.2-0.9) 04/17/23 05:30 Eos # (Auto) 0.1 10^3/uL (0.0-0.8) 04/17/23 05:30 Baso # (Auto) 0.0 10^3/uL (0.0-0.1) 04/17/23 05:30 Nucleated RBC % (auto) 0 % 04/17/23 05:30 Nucleated RBCs # 0.0 /100WBC 04/17/23 05:30 Sodium 135 mmol/L (136-145) L 04/17/23 05:30 Potassium 3.8 mmol/L (3.5-5.1) 04/17/23 05:30 Chloride 99 mmol/L (98-107) 04/17/23 05:30 Carbon Dioxide 25 mmol/L (22-29) 04/17/23 05:30 Anion Gap 14.8 (5-19) 04/17/23 05:30 BUN 12 mg/dL (8-23) 04/17/23 05:30 Creatinine 0.8 mg/dL (0.7-1.2) 04/17/23 05:30 GFR Calculation 97.0 mL/min (90-130) 04/17/23 05:30 Glucose 123 mg/dL (65-115) H 04/17/23 05:30 Calculated Osmolality 281 mOsm/kg (285-295) L 04/17/23 05:30 Calcium 9.0 mg/dL (8.5-10.5) 04/17/23 05:30 Total Bilirubin 0.8 mg/dL (0.15-1.2) 04/17/23 05:30 AST 19 U/L (0-40) 04/17/23 05:30 ALT 20 U/L (0-41) 04/17/23 05:30 Alkaline Phosphatase 78 U/L (40-130) 04/17/23 05:30 Total Protein 6.1 g/dL (6.6-8.7) L 04/17/23 05:30 Albumin 3.6 g/dL (3.5-5.2) 04/17/23 05:30 Globulin 2.5 g/dL (1.3-4.6) 04/17/23 05:30 Coronavirus 229E (PCR) Not detected (NOT DETECT) 04/17/23 07:40 Influenza Type A Ag negative (Negative) 04/17/23 05:18 Influenza Type B Ag negative (Negative) 04/17/23 05:18 SARS-CoV-2 (PCR) Detected (NOT DETECT) A 04/17/23 07:40 SARS-CoV-2 Ag (Rapid) negative (Negative) 04/17/23 05:18 Discharge Plan Discharge Patient Disposition: Home Clinical Impression: Viral URI with cough Condition: Stable Prescriptions: New Paxlovid 300 mg (150 mg x 2)-100 mg tablets,dose pack See Rx Instructions .ROUTE .COMPLEX Qty: 30 0RF Rx Instructions: orally per package directions No Action levocetirizine [Xyzal] 5 mg tablet 5 mg PO DAILY PRN fenofibrate nanocrystallized 145 mg tablet 145 mg PO DAILY tamsulosin 0.4 mg capsule 0.4 mg PO DAILY Qty: 90 3RF apixaban 2.5 mg tablet 2.5 mg PO BID Qty: 180 0RF Zoladex 10.8 mg implant SUBCUT acetaminophen [Tylenol Arthritis Pain] 650 mg tablet extended release 650 mg PO Q12H mupirocin 2 % ointment 1 applic topical BID PRN triamcinolone acetonide 0.1 % ointment 1 applic topical BID PRN Rx Instructions: apply to affected area no more than 2 weeks per month. not for face oxybutynin chloride 5 mg tablet extended release 24hr 15 mg PO DAILY zolpidem 12.5 mg tablet,ext release multiphase PO triamterene-hydrochlorothiazid 37.5-25 mg tablet 2 tab PO DAILY rosuvastatin 40 mg tablet 40 mg PO DAILY Qty: 90 3RF metoprolol succinate 100 mg tablet extended release 24 hr 50 mg PO BID allopurinol 300 mg tablet 300 mg PO BID Discharge Orders: Discharge ED (Routine); Ordered 04/17/23 Ordered By: Dominic Higuera Referrals: Irina Valdovinos FNP [Primary Care Provider] - Discharge Diet: Usual diet Discharge Activity: Increase activity as tolerated Patient Instructions: Viral Syndrome (ED), Opioid Safety, Pain Management Activity Restrictions/Additional Instructions: Thank you for choosing [facility] for your healthcare needs today. Please realize this is an emergency room and that we are providing you with a medical screening exam and this may not be complete and all inclusive of all the testing and or work up that you may need to determine your ailment or severity of your illness. It is very important that you follow up as instructed or that you return to the Emergency Department should you have concerns or if your condition changes or worsens in any way. Sign Out Sign Out Data: Patient Sign Out occurred on 04/17/23 at 06:21. Patient's care was discussed, and care was transferred from Rigoberto Fine DO to Dominic Higuera DO. 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
[2023-04-17 05:35] LABS: Basophils % 0.4 %; Eosinophils # 0.1 10^3/uL (0.0-0.8); Hematocrit 35.9 % (37-53); Lymphocytes # 0.3 10^3/uL (0.8-4.8); Lymphocytes % 5.6 %; Mean Corpuscular HGB Conc 32.9 g/dL (30-55); Mean Corpuscular Hemoglobin 32.2 pg (27-33); Mean Corpuscular Volume 98.1 fl (82-101); Mean Platelet Volume 9.8 fL (7.4-10.4); Monocytes # 0.6 10^3/uL (0.2-0.9); Monocytes % 12.1 %; Neutrophils % 80.5 %; Nucleated Red Blood Cells % 0 %; Platelet Count 144 10^3/cmm (157-399); Red Blood Count 3.66 10^6/uL (3.85-5.65); Red Cell Distribution Width 15.6 % (12.1-15.1); White Blood Count 5.21 10^3/uL (3.29-11.43)
[2023-04-17 05:53] LABS: Influenza A by IFA negative (Negative); Influenza B by IFA negative (Negative)
[2023-04-17 05:54] LABS: SARS Covid-2 Antigen negative (Negative)
[2023-04-17 05:55] LABS: Alanine Aminotransferase 20 U/L (0-41); Albumin Level 3.6 g/dL (3.5-5.2); Alkaline Phosphatase 78 U/L (40-130); Anion Gap 14.8 (5-19); Aspartate Amino Transferase 19 U/L (0-40); Blood Urea Nitrogen 12 mg/dL (8-23); Carbon Dioxide 25 mmol/L (22-29); Chloride 99 mmol/L (98-107); Globulin 2.5 g/dL (1.3-4.6); Glucose 123 mg/dL (65-115); Osmolality Calculated 281 mOsm/kg (285-295); Potassium 3.8 mmol/L (3.5-5.1); Sodium 135 mmol/L (136-145); Total Bilirubin 0.8 mg/dL (0.15-1.2); Total Protein 6.1 g/dL (6.6-8.7)
[2023-04-17] MEDS: hyDRALAzine 20 mg/mL INJ 1 mL IVP (06:13)
[2023-04-17 07:43] VITALS: BP 145/80; O2SAT 95
[2023-04-17 07:49] VITALS: BP 162/88
[2023-04-17 08:20] VITALS: BP 146/84; PULSE 106; RESP 18; O2SAT 93
[2023-04-17 09:48] LABS: Adenovirus Not Detected (NOT DETECT); Chlamydia Pneumoniae Not Detected (NOT DETECT); Coronavirus 229E,HKU1,NL63,OC4 Not Detected (NOT DETECT); Human Metapneumovirus Not Detected (NOT DETECT); Human Rhinovirus/Enterovirus Not Detected (NOT DETECT); Influenza A Not Detected (NOT DETECT); Influenza A H1 Not Detected (NOT DETECT); Influenza A H1-2009 Not Detected (NOT DETECT); Influenza A H3 Not Detected (NOT DETECT); Influenza B Not Detected (NOT DETECT); Mycoplasma Pneumoniae Not Detected (NOT DETECT); Parainfluenza Virus Type 1 Not Detected (NOT DETECT); Parainfluenza Virus Type 2 Not Detected (NOT DETECT); Parainfluenza Virus Type 3 Not Detected (NOT DETECT); Parainfluenza Virus Type 4 Not Detected (NOT DETECT); Respiratory Syncytial Virus A Not Detected (NOT DETECT); Respiratory Syncytial Virus B Not Detected (NOT DETECT)
[2023-04-17 09:56] LABS: SARS-COV-2 Detected (NOT DETECT)
== END 2023-04-17 08:21 | disposition home or self-care (01) ==
PROVIDERS: Emergency Medicine; Emergency Provider Family Medicine; PCP Nurse Practitioner Family
DX: J06.9 Acute upper respiratory infection, unspecified (principal)
CPT/HCPCS: 36415; 71045; 80053; 85025; 87426; 87635; 87804; 96374; 99284; J0360

== ENCOUNTER → 2023-04-23 07:55 | Outpatient (BNVA) | payer MEDICARE, SELFPAY | PROVIDERS: PCP Nurse Practitioner Family; Visit Provider Thoracic Surgery (Cardiothoracic Vascular Surgery) | DX: N30.41 Irradiation cystitis with hematuria (principal) | CPT/HCPCS: G0277 ==

== ENCOUNTER → 2023-04-24 07:58 | Outpatient (BNVA) | payer MEDICARE, SELFPAY | PROVIDERS: PCP Nurse Practitioner Family; Visit Provider Nurse Practitioner Family | DX: N30.41 Irradiation cystitis with hematuria (principal) | CPT/HCPCS: G0277 ==

== ENCOUNTER → 2023-04-26 07:55 | Outpatient (BNVA) | payer MEDICARE, SELFPAY | PROVIDERS: PCP Nurse Practitioner Family; Visit Provider Nurse Practitioner Family | DX: N30.41 Irradiation cystitis with hematuria (principal) | CPT/HCPCS: G0277 ==

== ENCOUNTER → 2023-04-27 08:07 | Outpatient (BNVA) | payer MEDICARE, SELFPAY | PROVIDERS: PCP Nurse Practitioner Family; Visit Provider Thoracic Surgery (Cardiothoracic Vascular Surgery) | DX: N30.41 Irradiation cystitis with hematuria (principal) | CPT/HCPCS: G0277 ==

== ENCOUNTER → 2023-04-30 07:52 | Outpatient (BNVA) | payer MEDICARE, SELFPAY | PROVIDERS: PCP Nurse Practitioner Family; Visit Provider Nurse Practitioner Family | DX: N30.41 Irradiation cystitis with hematuria (principal) | CPT/HCPCS: G0277 ==

== ENCOUNTER → 2023-05-01 07:56 | Outpatient (BNVA) | payer MEDICARE, SELFPAY | PROVIDERS: PCP Nurse Practitioner Family; Visit Provider Thoracic Surgery (Cardiothoracic Vascular Surgery) | DX: N30.41 Irradiation cystitis with hematuria (principal) | CPT/HCPCS: G0277 ==

== ENCOUNTER → 2023-05-02 07:52 | Outpatient (BNVA) | payer MEDICARE, SELFPAY | PROVIDERS: PCP Nurse Practitioner Family; Visit Provider Thoracic Surgery (Cardiothoracic Vascular Surgery) | DX: N30.41 Irradiation cystitis with hematuria (principal) | CPT/HCPCS: G0277 ==

== ENCOUNTER → 2023-05-03 08:21 | Outpatient (BNVA) | payer MEDICARE, SELFPAY | PROVIDERS: PCP Nurse Practitioner Family; Visit Provider Thoracic Surgery (Cardiothoracic Vascular Surgery) | DX: N30.41 Irradiation cystitis with hematuria (principal) | CPT/HCPCS: G0277 ==

== ENCOUNTER → 2023-05-04 07:54 | Outpatient (BNVA) | payer MEDICARE, SELFPAY | PROVIDERS: PCP Nurse Practitioner Family; Visit Provider Thoracic Surgery (Cardiothoracic Vascular Surgery) | DX: N30.41 Irradiation cystitis with hematuria (principal) | CPT/HCPCS: G0277 ==

== ENCOUNTER → 2023-05-07 07:51 | Outpatient (BNVA) | payer MEDICARE, SELFPAY | PROVIDERS: PCP Nurse Practitioner Family; Visit Provider Nurse Practitioner Family | DX: N30.41 Irradiation cystitis with hematuria (principal) | CPT/HCPCS: G0277 ==

== ENCOUNTER → 2023-05-08 12:58 | Outpatient (BNVA) | payer MEDICARE, SELFPAY | PROVIDERS: PCP Nurse Practitioner Family; Visit Provider Thoracic Surgery (Cardiothoracic Vascular Surgery) | DX: N30.41 Irradiation cystitis with hematuria (principal) | CPT/HCPCS: G0277 ==

== ENCOUNTER → 2023-05-09 08:09 | Outpatient (BNVA) | payer MEDICARE, SELFPAY | PROVIDERS: PCP Nurse Practitioner Family; Visit Provider Thoracic Surgery (Cardiothoracic Vascular Surgery) | DX: N30.41 Irradiation cystitis with hematuria (principal) | CPT/HCPCS: G0277 ==